=== PATIENT | male | born 1940 | race Caucasian/White ===

== ENCOUNTER 2016-03-13 04:22 | Emergency (ER) | payer BC, MEDICARE ==
[~2016-03-13 04:22] MED LIST: ALDA25TA PO; ALEV220T26 PO; ATEN50TA2 PO; CLON-412 PO; CLON0.5T PO; CLON1TAB PO; LIDO1OIN2 TOP; LIDO5DIS36 TD; LYRI100C10 PO; OXYC1TAB23 PO; OXYC1TAB56 PO; OXYC30TA72 PO; VICO5TAB16 PO; ZOFR20TA PO
[2016-03-13] MEDS ORDERED: PERCOCET 5MG/325MG TAB As Ordered ONE (08:12)
--- NOTE | 2016-03-13 09:06 | REP ---
Clinical: Right scrotal pain. Technique: Real time espinal scale and color Doppler evaluation using linear high frequency transducer. Comparison: 08/25/2013. Findings: In comparison with prior examination dated 2013, there has been no significant change. The bilateral testicles again appear heterogeneous but symmetric in echotexture with few scattered calcifications but no underlying testicular/epididymal mass, acute infectious/inflammatory process, or torsion. Bilateral chronic complex hydroceles are again identified (left greater than right) and essentially unchanged with two left scrotal calculi measuring approximately 5 mm each. Stable 3.5 mm right epididymal head cyst. No inguinal hernia. Impression: Chronic stable changes as described above including bilateral chronic hydroceles with small scrotal pearls. No obvious acute scrotal or testicular abnormality identified Signed by Crow Oakley MD 03/13/2016 08:58 A
--- NOTE | 2016-03-13 09:57 | EDDOCDS ---
Nurse's Notes [facility] Name: Nilo Palacio Age: 75 yrs Sex: Male : 1940 Arrival Date: 03/13/2016 Time: 04:22 Bed 12 Private MD: Diagnosis: Hydrocele, unspecified-with scrotal pearls Presentation: 03/13 04:30 Presenting complaint: Patient states: Pain in groin area, buttocks and right leg pain lf1 is currently 12/11. Pt reports that he was constipated on Saturday night and took Mag Citrate and strained "really hard" to have a "really lot of a bowel movement". Pt. reports that both testicles are now larger and the right one is very painful. Presenting complaint: Patient states: Testicle have been swollen since yesterday. Adult Sepsis Screening: The patient does not have new or worsening altered mentation. Adult Sepsis Screening: Patient's respiratory rate is less than 22. Suicide/Homicide risk assessment- the patient denies having any suicidal and/or homicidal ideations and does not present with any other emotional, behavioral or mental health complaints. 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 Transition of care: patient was not received from another setting of care. 04:30 Acuity: AISLINN Level 3 lf1 04:30 Method Of Arrival: Wheelchair lf1 04:42 Adult Sepsis Screening: Systolic blood pressure is greater than 100. Patient has a lf1 qSOFA score of 0- Negative Sepsis Screen. Triage Assessment: 04:42 General: Appears uncomfortable, Behavior is cooperative. Pain: Location: pelvis, lf1 buttocks, testicles, right leg Pain currently is 10 out of 10 on a pain scale. Alleviated by nothing. Neurological: Level of Consciousness is awake, alert. Cardiovascular: Chest pain is denied. Respiratory: Respiratory effort is even, unlabored. GI: Reports nausea. : Denies inability to void. Derm: Reports swelling to both testicles. Injury Description: No known injury. Historical: - Allergies: No known drug Allergies; - Home Meds: 1. clonidine HCl 0.1 mg Oral tab once daily (Last dose: 03/12/2016 07:30) 2. atenolol 50 mg Oral tab 1 tab once daily (Last dose: 03/12/2016 07:30) 3. Lyrica 100mg Oral BID PRN (Last dose: 03/13/2016 03:00) 4. oxycodone 30 mg Oral Tb12 every 12 hours (Last dose: 03/12/2016 21:00) 5. ondansetron HCl 4 mg Oral tab every 6 hours 6. spironolacton-hydrochlorothiaz 25-25 mg Oral tab 1 tab once daily 7. Clonazepam 0.5mg in am and 2 tabs at pm Oral 8. Sertraline 25 mg daily - PMHx: Anxiety; Bulging Discs; hernia repair; Hypertension; poor leg circulation; - PSHx: Eye Surgey; Bulging Disc; Hernia repair; - Social history: Smoking status: Patient states former smoker of tobacco. No barriers to communication noted, The patient speaks fluent [place], Speaks appropriately for age, Preferred Language: [place]. - Family history: Not pertinent. - : The pt / caregiver states he / she is not on anticoagulants. Home medication list is obtained from the patient. - Exposure Risk Screening:: None identified. Screenin:45 Screening information is obtained from the patient. Fall risk: At risk due to age, lf1 immobility. Assistance ADL's: requires no assistance with activities of daily living. Abuse/DV Screen: The patient / caregiver reports he/she is: not in a situation that causes fear, pain or injury. Nutritional screening: No deficits noted. home support is adequate. 04:47 Advance Directives: There is no active DNR order. lf1 Assessment: 05:25 General: Appears in no apparent distress, uncomfortable, well nourished, well groomed, kas2 Behavior is appropriate for age, cooperative. Pain: Location: groin Pain currently is 5 out of 10 on a pain scale. Neurological: Level of Consciousness is awake, alert, Oriented to person, place, time. Cardiovascular: Rhythm is regular. Respiratory: Airway is patent Respiratory effort is even, unlabored, Respiratory pattern is regular, symmetrical, Breath sounds are clear bilaterally. GI: Bowel sounds present X 4 quads. Abd is soft and non tender X 4 quads. : No deficits noted. Derm: Skin is intact, is healthy with good turgor, Skin is dry, Skin is pink, warm & dry. Skin temperature is warm. 05:57 General: Patient laying in bed with family at bedside. No apparent distress noted. kas2 Appears comfortable. Call jordan within reach. Will continue to monitor.. 08:10 Reassessment: patient states he missed his 0600 Percocet for his chronic pain - kcs provider informed and order received.. General: Appears comfortable, well developed, well nourished, well groomed, Behavior is cooperative, flat. Pain: Location: all over Pain currently is 7 out of 10 on a pain scale. Neurological: Level of Consciousness is awake, alert. Respiratory: Airway is patent Respiratory effort is even, unlabored, Respiratory pattern is regular, symmetrical. Derm: Skin is intact, is healthy with good turgor, Skin is dry, Skin is normal. 08:59 Reassessment: Patient states no change in pain - pain is in his lower back and kcs buttocks. Awaiting final rad report. at bedside.. 09:52 Reassessment: Patient dressed and ready for discharge. Still having pain (chronic) in kcs his low back and legs = 7/10.. General: Appears comfortable, well developed, well nourished, Behavior is cooperative, pleasant. Pain: Location: low back and legs Pain currently is 7 out of 10 on a pain scale. Neurological: Level of Consciousness is awake, alert. Respiratory: Airway is patent Respiratory effort is even, unlabored, Respiratory pattern is regular, symmetrical. Derm: Skin is intact, is healthy with good turgor, Skin is dry, Skin is normal. Vital Signs: 04:42 BP 143 / 95 LA Sitting (auto/reg); Pulse 84; Resp 18; Temp 98.1(TE); Pulse Ox 96% on lf1 R/A; Weight 90.72 kg (R); Height 6 ft. 0 in. (182.88 cm) (R); Pain 10/10; 08:10 BP 170 / 92; Pulse 66; Resp 20; Pulse Ox 94% on R/A; Pain 7/10; kcs 09:52 BP 149 / 91; Pulse 83; Resp 20; Temp 96.5(O); Pulse Ox 95% on R/A; Pain 7/10; kcs 04:42 Body Mass Index 27.12 (90.72 kg, 182.88 cm) [facility] Vitals: 04:42 Log In Time: March 13, 2016 at 04:24. [facility] ED Course: 04:23 Patient visited by Coffey, Alyssa, Reg. hs2 04:23 Patient moved to Waiting hs2 04:36 Triage Initiated lf1 04:54 Khushbu Frederick RN is Primary Nurse. lf1 04:54 Patient moved to 12 lf1 05:26 Patient visited by Khushbu Frederick RN. kas2 05:58 Patient visited by Khushbu Frederick RN. kas2 06:33 Patient visited by Khushbu Frederick RN. kas2 06:54 Tung Jansen DO is Attending Physician. mm11 07:05 Report received from Khushbu Frederick RN. kcs 07:11 Patient visited by Tung Jansen DO. mm11 07:15 Primary Nurse role handed off by Khushbu Frederick RN mcp 07:28 [facility] Payment Agreement was scanned into [employer] and attached to record. hs2 07:37 Patient moved to Ultrasound ssc 08:02 Patient moved to 12 ssc 08:10 Attending Physician role handed off by Tung Jansen DO sd1 08:10 Colleen Trejo MD is Attending Physician. sd1 08:11 UA Sent. kcs 08:11 Urine Culture Sent. kcs 08:11 GC & Chlamydia Amplification Sent. kcs 08:20 Patient visited by Ileana Porter RN. kcs 09:01 Patient visited by Ileana Porter RN. kcs 09:20 Scrotal, US Returned. EDMS 09:42 Mary Sloan MD is Referral Physician. sd1 09:42 Akbar Morse is Referral Physician. sd1 09:52 The patient / caregiver is instructed regarding the plan of care and ED course. kcs 09:52 No IV's were initiated during this patient's visit. No procedures done that require kcs assistance. Administered Medications: 08:15 Drug: oxyCODONE-acetaminophen 1 tabs [oxycodone-acetaminophen 5 mg-325 mg tablet (1 kcs tabs)] Route: PO; Output: 08:10 Urine: 425.00ml (Voided); Total: 425.00ml. kcs 09:52 Urine: 250.00ml (Voided); Total: 675.00ml. kcs Order Results: Lab Order: UA; SPEC'M 03/13/16 08:08 Test: APPEARANCE, URINE; Value: CLEAR; Range: CLEAR; Status: F Test: COLOR, URINE; Value: YELLOW; Range: YELLOW; Status: F Test: PH,URINE; Value: 6.0; Range: 5.0-9.0; Units: UNITS; Status: F Test: SPECIFIC GRAVITY URINE AUTO; Value: 1.005; Range: 1.002-1.035; Status: F Test: PROTEIN, URINE AUTO; Value: NEGATIVE; Range: NEGATIVE; Units: mg/dL; Status: F Test: GLUCOSE, URINE (UA) AUTO; Value: NEGATIVE; Range: NEGATIVE; Units: mg/dL; Status: F Test: KETONE, URINE AUTO; Value: NEGATIVE; Range: NEGATIVE; Units: mg/dL; Status: F Test: UROBILINOGEN, URINE AUTO; Value: 0.2; Range: 0.0-2.0; Units: mg/dL; Status: F Test: BILIRUBIN, URINE AUTO; Value: NEGATIVE; Range: NEGATIVE; Status: F Test: NITRITE, URINE AUTO; Value: NEGATIVE; Range: NEGATIVE; Status: F Test: LEUKOCYTE ESTERASE, URINE AUTO; Value: NEGATIVE; Range: NEGATIVE; Status: F Test: BLOOD, URINE BLOOD; Value: NEGATIVE; Range: NEGATIVE; Status: F Test: WBC, URINE AUTO; Value: 0; Range: 0-3; Units: /HPF; Status: F Test: RBC, URINE AUTO; Value: 1; Range: 0-3; Units: /HPF; Status: F Test: BACTERIA, URINE AUTO; Value: NEGATIVE; Range: NEGATIVE; Status: F Test: SQUAMOUS EPITHELIAL CELL UR AU; Value: 0; Range: 0-6; Units: /HPF; Status: F Test: HYALINE CAST, URINE AUTO; Value: 0; Range: 0-1; Units: /LPF; Status: F Test: AMORPHOUS SEDIMENT; Value: SMALL; Range: NEGATIVE; Abnormal: Above high normal; Status: F Radiology Order: Scrotal, US Test: Scrotal, US REASON FOR EXAMINATION: scrotal swelling; Clinical: Right scrotal pain.; ; Technique: Real time espinal scale and color Doppler evaluation using linear high; frequency transducer.; ; Comparison: 08/25/2013.; ; Findings:; In comparison with prior examination dated 2013, there has been no significant; change.; ; The bilateral testicles again appear heterogeneous but symmetric in echotexture; with few scattered calcifications but no underlying testicular/epididymal mass,; acute infectious/inflammatory process, or torsion. Bilateral chronic complex; hydroceles are again identified (left greater than right) and essentially; unchanged with two left scrotal calculi measuring approximately 5 mm each.; Stable 3.5 mm right epididymal head cyst. No inguinal hernia.; ; Impression:; Chronic stable changes as described above including bilateral chronic hydroceles; with small scrotal pearls.; No obvious acute scrotal or testicular abnormality identified; ; ; ; ; Signed by; Crow Oakley MD 03/13/2016 08:58 A; Outcome: 09:42 Discharge ordered by Provider. sd1 09:52 Discharge Assessment: Patient awake, alert and oriented x 3. No cognitive and/or kcs functional deficits noted. Patient verbalized understanding of disposition instructions. Patient awake and alert. patient administered narcotics - yes. Pt provided with safe discharge. The following High Risk Discharge criteria are identified: None. Discharged to home via wheelchair, with significant other. Condition: stable. Discharge instructions given to patient, significant other, Instructed on discharge instructions, follow up and referral plans. Demonstrated understanding of instructions, Pt was receptive of discharge instructions/ teaching. Ultrasound Study completed. Property sent home with patient. 09:56 Patient left the ED. kcs Signatures: Dispatcher [employer] EDMS Colleen Trejo MD MD sd1 Ileana Porter, RN RN Nadia Newman RN Nilson Watts mcp, Lisa,PILAR RN lf1 Tung Jansen, DO mm11 Alyssa Coffey, Reg Reg hs2 Khushbu Frederick,RN RN kas2 Corrections: (The following items were deleted from the chart) 04:47 04:45 Advance Directives: Currently, there is a health care proxy, Sandy Palacio (). lf1 There is an active DNR order and the pt has a copy here at this time. lf1 MTDD
--- NOTE | 2016-03-13 09:57 | EDDOCDS ---
Physician Documentation [facility] Name: Nilo Palacio Age: 75 yrs Sex: Male : 1940 Arrival Date: 03/13/2016 Time: 04:22 Bed 12 Private MD: Disposition: 03/13/16 09:42 Discharged to Home/Self Care. Impression: Hydrocele, unspecified - with scrotal pearls. - Condition is Stable. - Discharge Instructions: Scrotal Masses. - Medication Reconciliation, Local Pharmacy Hours form. - Follow up: Mary Sloan MD; When: Call to arrange an appointment. Follow up: Akbar Morse; When: Call to arrange an appointment. - Problem is an acute exacerbation. - Symptoms have improved. Historical: - Allergies: No known drug Allergies; - Home Meds: 1. clonidine HCl 0.1 mg Oral tab once daily (Last dose: 03/12/2016 07:30) 2. atenolol 50 mg Oral tab 1 tab once daily (Last dose: 03/12/2016 07:30) 3. Lyrica 100mg Oral BID PRN (Last dose: 03/13/2016 03:00) 4. oxycodone 30 mg Oral Tb12 every 12 hours (Last dose: 03/12/2016 21:00) 5. ondansetron HCl 4 mg Oral tab every 6 hours 6. spironolacton-hydrochlorothiaz 25-25 mg Oral tab 1 tab once daily 7. Clonazepam 0.5mg in am and 2 tabs at pm Oral 8. Sertraline 25 mg daily - PMHx: Anxiety; Bulging Discs; hernia repair; Hypertension; poor leg circulation; - PSHx: Eye Surgey; Bulging Disc; Hernia repair; - Social history: Smoking status: Patient states former smoker of tobacco. No barriers to communication noted, The patient speaks fluent [place], Speaks appropriately for age, Preferred Language: [place]. - Family history: Not pertinent. - : The pt / caregiver states he / she is not on anticoagulants. Home medication list is obtained from the patient. - Exposure Risk Screening:: None identified. Vital Signs: 03/13 04:42 BP 143 / 95 LA Sitting (auto/reg); Pulse 84; Resp 18; Temp 98.1(TE); Pulse Ox 96% on lf1 R/A; Weight 90.72 kg / 200 lbs (R); Height 6 ft. 0 in. (182.88 cm) (R); Pain 10/10; 08:10 BP 170 / 92; Pulse 66; Resp 20; Pulse Ox 94% on R/A; Pain 7/10; kcs 09:52 BP 149 / 91; Pulse 83; Resp 20; Temp 96.5(O); Pulse Ox 95% on R/A; Pain 7/10; kcs 04:42 Body Mass Index 27.12 (90.72 kg, 182.88 cm) lf1 MDM: 07:14 Scrotal, US Ordered. EDMS 07:14 UA Ordered. EDMS 07:14 Urine Culture Ordered. EDMS 07:14 GC & Chlamydia Amplification Ordered. EDMS 07:15 Financial registration complete. hs2 07:28 [facility] Payment Agreement was scanned into [employer] and attached to record. hs2 08:10 oxyCODONE-acetaminophen 5 mg-325 mg 1 tabs PO once ordered. sd1 08:11 DUPLEX SCAN LIMITED (DOPPLER) Ordered. EDMS 08:11 Pelvis, limited US Ordered. EDMS 08:35 UA Reviewed. sd1 Administered Medications: 08:15 Drug: oxyCODONE-acetaminophen 1 tabs [oxycodone-acetaminophen 5 mg-325 mg tablet (1 kcs tabs)] Route: PO; Signatures: Dispatcher [employer] Colleen Watkins MD MD sd1 Ileana Porter RN RN kcs Ford, Lisa, RN RN lf1 Alyssa Coffey, Reg Reg hs2 The chart was reviewed and I authenticate all verbal orders and agree with the evaluation and treatment provided.Attachments: 07:28 [facility] Payment Agreement hs2 MTDD
--- NOTE | 2016-03-15 10:57 | EDDOCDS ---
Nurse's Notes [facility] Name: Nilo Palacio Age: 75 yrs Sex: Male : 1940 Arrival Date: 03/13/2016 Time: 04:22 Bed 12 Private MD: Diagnosis: Hydrocele, unspecified-with scrotal pearls Presentation: 03/13 04:30 Presenting complaint: Patient states: Pain in groin area, buttocks and right leg pain lf1 is currently 12/11. Pt reports that he was constipated on Saturday night and took Mag Citrate and strained "really hard" to have a "really lot of a bowel movement". Pt. reports that both testicles are now larger and the right one is very painful. Presenting complaint: Patient states: Testicle have been swollen since yesterday. Adult Sepsis Screening: The patient does not have new or worsening altered mentation. Adult Sepsis Screening: Patient's respiratory rate is less than 22. Suicide/Homicide risk assessment- the patient denies having any suicidal and/or homicidal ideations and does not present with any other emotional, behavioral or mental health complaints. Status: Patient is not a inbound customer service representative or dependent. Transition of care: patient was not received from another setting of care. 04:30 Acuity: AISLINN Level 3 lf1 04:30 Method Of Arrival: Wheelchair lf1 04:42 Adult Sepsis Screening: Systolic blood pressure is greater than 100. Patient has a lf1 qSOFA score of 0- Negative Sepsis Screen. Triage Assessment: 04:42 General: Appears uncomfortable, Behavior is cooperative. Pain: Location: pelvis, lf1 buttocks, testicles, right leg Pain currently is 10 out of 10 on a pain scale. Alleviated by nothing. Neurological: Level of Consciousness is awake, alert. Cardiovascular: Chest pain is denied. Respiratory: Respiratory effort is even, unlabored. GI: Reports nausea. : Denies inability to void. Derm: Reports swelling to both testicles. Injury Description: No known injury. Historical: - Allergies: No known drug Allergies; - Home Meds: 1. clonidine HCl 0.1 mg Oral tab once daily (Last dose: 03/12/2016 07:30) 2. atenolol 50 mg Oral tab 1 tab once daily (Last dose: 03/12/2016 07:30) 3. Lyrica 100mg Oral BID PRN (Last dose: 03/13/2016 03:00) 4. oxycodone 30 mg Oral Tb12 every 12 hours (Last dose: 03/12/2016 21:00) 5. ondansetron HCl 4 mg Oral tab every 6 hours 6. spironolacton-hydrochlorothiaz 25-25 mg Oral tab 1 tab once daily 7. Clonazepam 0.5mg in am and 2 tabs at pm Oral 8. Sertraline 25 mg daily - PMHx: Anxiety; Bulging Discs; hernia repair; Hypertension; poor leg circulation; - PSHx: Eye Surgey; Bulging Disc; Hernia repair; - Social history: Smoking status: Patient states former smoker of tobacco. No barriers to communication noted, The patient speaks fluent Vincentian, Speaks appropriately for age, Preferred Language: Vincentian. - Family history: Not pertinent. - : The pt / caregiver states he / she is not on anticoagulants. Home medication list is obtained from the patient. - Exposure Risk Screening:: None identified. Screenin:45 Screening information is obtained from the patient. Fall risk: At risk due to age, lf1 immobility. Assistance ADL's: requires no assistance with activities of daily living. Abuse/DV Screen: The patient / caregiver reports he/she is: not in a situation that causes fear, pain or injury. Nutritional screening: No deficits noted. home support is adequate. 04:47 Advance Directives: There is no active DNR order. lf1 Assessment: 05:25 General: Appears in no apparent distress, uncomfortable, well nourished, well groomed, kas2 Behavior is appropriate for age, cooperative. Pain: Location: groin Pain currently is 5 out of 10 on a pain scale. Neurological: Level of Consciousness is awake, alert, Oriented to person, place, time. Cardiovascular: Rhythm is regular. Respiratory: Airway is patent Respiratory effort is even, unlabored, Respiratory pattern is regular, symmetrical, Breath sounds are clear bilaterally. GI: Bowel sounds present X 4 quads. Abd is soft and non tender X 4 quads. : No deficits noted. Derm: Skin is intact, is healthy with good turgor, Skin is dry, Skin is pink, warm & dry. Skin temperature is warm. 05:57 General: Patient laying in bed with family at bedside. No apparent distress noted. kas2 Appears comfortable. Call jordan within reach. Will continue to monitor.. 08:10 Reassessment: patient states he missed his 0600 Percocet for his chronic pain - kcs provider informed and order received.. General: Appears comfortable, well developed, well nourished, well groomed, Behavior is cooperative, flat. Pain: Location: all over Pain currently is 7 out of 10 on a pain scale. Neurological: Level of Consciousness is awake, alert. Respiratory: Airway is patent Respiratory effort is even, unlabored, Respiratory pattern is regular, symmetrical. Derm: Skin is intact, is healthy with good turgor, Skin is dry, Skin is normal. 08:59 Reassessment: Patient states no change in pain - pain is in his lower back and kcs buttocks. Awaiting final rad report. at bedside.. 09:52 Reassessment: Patient dressed and ready for discharge. Still having pain (chronic) in kcs his low back and legs = 7/10.. General: Appears comfortable, well developed, well nourished, Behavior is cooperative, pleasant. Pain: Location: low back and legs Pain currently is 7 out of 10 on a pain scale. Neurological: Level of Consciousness is awake, alert. Respiratory: Airway is patent Respiratory effort is even, unlabored, Respiratory pattern is regular, symmetrical. Derm: Skin is intact, is healthy with good turgor, Skin is dry, Skin is normal. Vital Signs: 04:42 BP 143 / 95 LA Sitting (auto/reg); Pulse 84; Resp 18; Temp 98.1(TE); Pulse Ox 96% on lf1 R/A; Weight 90.72 kg (R); Height 6 ft. 0 in. (182.88 cm) (R); Pain 10/10; 08:10 BP 170 / 92; Pulse 66; Resp 20; Pulse Ox 94% on R/A; Pain 7/10; kcs 09:52 BP 149 / 91; Pulse 83; Resp 20; Temp 96.5(O); Pulse Ox 95% on R/A; Pain 7/10; kcs 04:42 Body Mass Index 27.12 (90.72 kg, 182.88 cm) [facility] Vitals: 04:42 Log In Time: March 13, 2016 at 04:24. [facility] ED Course: 04:23 Patient visited by Coffey, Alyssa, Reg. hs2 04:23 Patient moved to Waiting hs2 04:36 Triage Initiated lf1 04:54 Khushbu Frederick RN is Primary Nurse. lf1 04:54 Patient moved to 12 lf1 05:26 Patient visited by Khushbu Frederick RN. kas2 05:58 Patient visited by Khushbu Frederick RN. kas2 06:33 Patient visited by Khushbu Frederick RN. kas2 06:54 Tung Jansen DO is Attending Physician. mm11 07:05 Report received from Khushbu Frederick RN. kcs 07:11 Patient visited by Tung Jansen DO. mm11 07:15 Primary Nurse role handed off by Khushbu Frederick RN mcp 07:28 [facility] Payment Agreement was scanned into [employer] and attached to record. hs2 07:37 Patient moved to Ultrasound ssc 08:02 Patient moved to 12 ssc 08:10 Attending Physician role handed off by Tung Jansen DO sd1 08:10 Colleen Trejo MD is Attending Physician. sd1 08:11 UA Sent. kcs 08:11 Urine Culture Sent. kcs 08:11 GC & Chlamydia Amplification Sent. kcs 08:20 Patient visited by Ileana Porter RN. kcs 09:01 Patient visited by Ileana Porter RN. kcs 09:20 Scrotal, US Returned. EDMS 09:42 Mary Sloan MD is Referral Physician. sd1 09:42 Akbar Morse is Referral Physician. sd1 09:52 The patient / caregiver is instructed regarding the plan of care and ED course. kcs 09:52 No IV's were initiated during this patient's visit. No procedures done that require kcs assistance. 14:41 T-Sheet-- Draft Copy was scanned into [employer] and attached to record. gb 14:41 Radiology Report was scanned into [employer] and attached to record. gb Administered Medications: 08:15 Drug: oxyCODONE-acetaminophen 1 tabs [oxycodone-acetaminophen 5 mg-325 mg tablet (1 kcs tabs)] Route: PO; Output: 08:10 Urine: 425.00ml (Voided); Total: 425.00ml. kcs 09:52 Urine: 250.00ml (Voided); Total: 675.00ml. kcs Order Results: Lab Order: UA; SPEC'M 03/13/16 08:08 Test: APPEARANCE, URINE; Value: CLEAR; Range: CLEAR; Status: F Test: COLOR, URINE; Value: YELLOW; Range: YELLOW; Status: F Test: PH,URINE; Value: 6.0; Range: 5.0-9.0; Units: UNITS; Status: F Test: SPECIFIC GRAVITY URINE AUTO; Value: 1.005; Range: 1.002-1.035; Status: F Test: PROTEIN, URINE AUTO; Value: NEGATIVE; Range: NEGATIVE; Units: mg/dL; Status: F Test: GLUCOSE, URINE (UA) AUTO; Value: NEGATIVE; Range: NEGATIVE; Units: mg/dL; Status: F Test: KETONE, URINE AUTO; Value: NEGATIVE; Range: NEGATIVE; Units: mg/dL; Status: F Test: UROBILINOGEN, URINE AUTO; Value: 0.2; Range: 0.0-2.0; Units: mg/dL; Status: F Test: BILIRUBIN, URINE AUTO; Value: NEGATIVE; Range: NEGATIVE; Status: F Test: NITRITE, URINE AUTO; Value: NEGATIVE; Range: NEGATIVE; Status: F Test: LEUKOCYTE ESTERASE, URINE AUTO; Value: NEGATIVE; Range: NEGATIVE; Status: F Test: BLOOD, URINE BLOOD; Value: NEGATIVE; Range: NEGATIVE; Status: F Test: WBC, URINE AUTO; Value: 0; Range: 0-3; Units: /HPF; Status: F Test: RBC, URINE AUTO; Value: 1; Range: 0-3; Units: /HPF; Status: F Test: BACTERIA, URINE AUTO; Value: NEGATIVE; Range: NEGATIVE; Status: F Test: SQUAMOUS EPITHELIAL CELL UR AU; Value: 0; Range: 0-6; Units: /HPF; Status: F Test: HYALINE CAST, URINE AUTO; Value: 0; Range: 0-1; Units: /LPF; Status: F Test: AMORPHOUS SEDIMENT; Value: SMALL; Range: NEGATIVE; Abnormal: Above high normal; Status: F Lab Order: Urine Culture; SPEC'M 03/13/16 08:08 Test: URINE CULTURE; Value: URINE CULTURE RESULT NO GROWTH; Status: F Lab Order: GC & Chlamydia Amplification; SPEC'M 03/13/16 08:08 Test: CHLAMYDIA DNA AMPLIFICATION; Value: NEGATIVE; Range: NEGATIVE; Status: F Test: GC DNA AMPLIFICATION; Value: NEGATIVE; Range: NEGATIVE; Status: F Radiology Order: Scrotal, US Test: Scrotal, US REASON FOR EXAMINATION: scrotal swelling; Clinical: Right scrotal pain.; ; Technique: Real time espinal scale and color Doppler evaluation using linear high; frequency transducer.; ; Comparison: 08/25/2013.; ; Findings:; In comparison with prior examination dated 2013, there has been no significant; change.; ; The bilateral testicles again appear heterogeneous but symmetric in echotexture; with few scattered calcifications but no underlying testicular/epididymal mass,; acute infectious/inflammatory process, or torsion. Bilateral chronic complex; hydroceles are again identified (left greater than right) and essentially; unchanged with two left scrotal calculi measuring approximately 5 mm each.; Stable 3.5 mm right epididymal head cyst. No inguinal hernia.; ; Impression:; Chronic stable changes as described above including bilateral chronic hydroceles; with small scrotal pearls.; No obvious acute scrotal or testicular abnormality identified; ; ; ; ; Signed by; Crow Oakley MD 03/13/2016 08:58 A; Outcome: 09:42 Discharge ordered by Provider. sd1 09:52 Discharge Assessment: Patient awake, alert and oriented x 3. No cognitive and/or kcs functional deficits noted. Patient verbalized understanding of disposition instructions. Patient awake and alert. patient administered narcotics - yes. Pt provided with safe discharge. The following High Risk Discharge criteria are identified: None. Discharged to home via wheelchair, with significant other. Condition: stable. Discharge instructions given to patient, significant other, Instructed on discharge instructions, follow up and referral plans. Demonstrated understanding of instructions, Pt was receptive of discharge instructions/ teaching. Ultrasound Study completed. Property sent home with patient. 09:56 Patient left the ED. kcs Signatures: Dispatcher [employer] EDMS Colleen Trejo MD MD sd1 Ileana Porter RN RN Nadia Newman RN RN mcp Castor, Steven ssc Barnhardt, Gloria, Reg Reg gb Carmelita HornRN RN lf1 Tung Jansen, DO mm11 Alyssa Coffey, Reg Reg hs2 Khushbu FrederickRN RN kas2 Corrections: (The following items were deleted from the chart) 04:47 04:45 Advance Directives: Currently, there is a health care proxy, Sandy Palacio (). lf1 There is an active DNR order and the pt has a copy here at this time. lf1 Chart Complete MTDD
--- NOTE | 2016-03-15 10:57 | EDDOCDS ---
Physician Documentation [facility] Name: Nilo Palacio Age: 75 yrs Sex: Male : 1940 Arrival Date: 03/13/2016 Time: 04:22 Bed 12 Private MD: Disposition: 03/13/16 09:42 Discharged to Home/Self Care. Impression: Hydrocele, unspecified - with scrotal pearls. - Condition is Stable. - Discharge Instructions: Scrotal Masses. - Medication Reconciliation, Local Pharmacy Hours form. - Follow up: Mary Sloan MD; When: Call to arrange an appointment. Follow up: Akbar Morse; When: Call to arrange an appointment. - Problem is an acute exacerbation. - Symptoms have improved. Historical: - Allergies: No known drug Allergies; - Home Meds: 1. clonidine HCl 0.1 mg Oral tab once daily (Last dose: 03/12/2016 07:30) 2. atenolol 50 mg Oral tab 1 tab once daily (Last dose: 03/12/2016 07:30) 3. Lyrica 100mg Oral BID PRN (Last dose: 03/13/2016 03:00) 4. oxycodone 30 mg Oral Tb12 every 12 hours (Last dose: 03/12/2016 21:00) 5. ondansetron HCl 4 mg Oral tab every 6 hours 6. spironolacton-hydrochlorothiaz 25-25 mg Oral tab 1 tab once daily 7. Clonazepam 0.5mg in am and 2 tabs at pm Oral 8. Sertraline 25 mg daily - PMHx: Anxiety; Bulging Discs; hernia repair; Hypertension; poor leg circulation; - PSHx: Eye Surgey; Bulging Disc; Hernia repair; - Social history: Smoking status: Patient states former smoker of tobacco. No barriers to communication noted, The patient speaks fluent Pakistani, Speaks appropriately for age, Preferred Language: Pakistani. - Family history: Not pertinent. - : The pt / caregiver states he / she is not on anticoagulants. Home medication list is obtained from the patient. - Exposure Risk Screening:: None identified. Vital Signs: 03/13 04:42 BP 143 / 95 LA Sitting (auto/reg); Pulse 84; Resp 18; Temp 98.1(TE); Pulse Ox 96% on lf1 R/A; Weight 90.72 kg / 200 lbs (R); Height 6 ft. 0 in. (182.88 cm) (R); Pain 10/10; 08:10 BP 170 / 92; Pulse 66; Resp 20; Pulse Ox 94% on R/A; Pain 7/10; kcs 09:52 BP 149 / 91; Pulse 83; Resp 20; Temp 96.5(O); Pulse Ox 95% on R/A; Pain 7/10; kcs 04:42 Body Mass Index 27.12 (90.72 kg, 182.88 cm) lf1 MDM: 07:14 Scrotal, US Ordered. EDMS 07:14 UA Ordered. EDMS 07:14 Urine Culture Ordered. EDMS 07:14 GC & Chlamydia Amplification Ordered. EDMS 07:15 Financial registration complete. hs2 07:28 [facility] Payment Agreement was scanned into [employer] and attached to record. hs2 08:10 oxyCODONE-acetaminophen 5 mg-325 mg 1 tabs PO once ordered. sd1 08:11 DUPLEX SCAN LIMITED (DOPPLER) Ordered. EDMS 08:11 Pelvis, limited US Ordered. EDMS 08:35 UA Reviewed. sd1 14:41 T-Sheet-- Draft Copy was scanned into [employer] and attached to record. gb 14:41 Radiology Report was scanned into [employer] and attached to record. gb Administered Medications: 08:15 Drug: oxyCODONE-acetaminophen 1 tabs [oxycodone-acetaminophen 5 mg-325 mg tablet (1 kcs tabs)] Route: PO; Signatures: Dispatcher [employer] EDColleen Bertrand MD MD sd1 Ileana Porter RN RN kcs Gaviota Lux, Reg Reg gb Carmelita Horn RN RN lf1 Alyssa Coffey, Reg Reg hs2 The chart was reviewed and I authenticate all verbal orders and agree with the evaluation and treatment provided.Attachments: 07:28 [facility] Payment Agreement hs2 14:41 T-Sheet-- Draft Copy gb Chart Complete MTDD
--- NOTE | 2016-03-15 10:57 | EDDOCDS ---
Physician Documentation [facility] Name: Nilo Palacio Age: 75 yrs Sex: Male : 1940 Arrival Date: 03/13/2016 Time: 04:22 Bed 12 Private MD: Disposition: 03/13/16 09:42 Discharged to Home/Self Care. Impression: Hydrocele, unspecified - with scrotal pearls. - Condition is Stable. - Discharge Instructions: Scrotal Masses. - Medication Reconciliation, Local Pharmacy Hours form. - Follow up: Mary Sloan MD; When: Call to arrange an appointment. Follow up: Akbar Morse; When: Call to arrange an appointment. - Problem is an acute exacerbation. - Symptoms have improved. Historical: - Allergies: No known drug Allergies; - Home Meds: 1. clonidine HCl 0.1 mg Oral tab once daily (Last dose: 03/12/2016 07:30) 2. atenolol 50 mg Oral tab 1 tab once daily (Last dose: 03/12/2016 07:30) 3. Lyrica 100mg Oral BID PRN (Last dose: 03/13/2016 03:00) 4. oxycodone 30 mg Oral Tb12 every 12 hours (Last dose: 03/12/2016 21:00) 5. ondansetron HCl 4 mg Oral tab every 6 hours 6. spironolacton-hydrochlorothiaz 25-25 mg Oral tab 1 tab once daily 7. Clonazepam 0.5mg in am and 2 tabs at pm Oral 8. Sertraline 25 mg daily - PMHx: Anxiety; Bulging Discs; hernia repair; Hypertension; poor leg circulation; - PSHx: Eye Surgey; Bulging Disc; Hernia repair; - Social history: Smoking status: Patient states former smoker of tobacco. No barriers to communication noted, The patient speaks fluent [place], Speaks appropriately for age, Preferred Language: [place]ian. - Family history: Not pertinent. - : The pt / caregiver states he / she is not on anticoagulants. Home medication list is obtained from the patient. - Exposure Risk Screening:: None identified. Vital Signs: 03/13 04:42 BP 143 / 95 LA Sitting (auto/reg); Pulse 84; Resp 18; Temp 98.1(TE); Pulse Ox 96% on lf1 R/A; Weight 90.72 kg / 200 lbs (R); Height 6 ft. 0 in. (182.88 cm) (R); Pain 10/10; 08:10 BP 170 / 92; Pulse 66; Resp 20; Pulse Ox 94% on R/A; Pain 7/10; kcs 09:52 BP 149 / 91; Pulse 83; Resp 20; Temp 96.5(O); Pulse Ox 95% on R/A; Pain 7/10; kcs 04:42 Body Mass Index 27.12 (90.72 kg, 182.88 cm) lf1 MDM: 07:14 Scrotal, US Ordered. EDMS 07:14 UA Ordered. EDMS 07:14 Urine Culture Ordered. EDMS 07:14 GC & Chlamydia Amplification Ordered. EDMS 07:15 Financial registration complete. hs2 07:28 [facility] Payment Agreement was scanned into [employer] and attached to record. hs2 08:10 oxyCODONE-acetaminophen 5 mg-325 mg 1 tabs PO once ordered. sd1 08:11 DUPLEX SCAN LIMITED (DOPPLER) Ordered. EDMS 08:11 Pelvis, limited US Ordered. EDMS 08:35 UA Reviewed. sd1 14:41 T-Sheet-- Draft Copy was scanned into [employer] and attached to record. gb 14:41 Radiology Report was scanned into [employer] and attached to record. gb Administered Medications: 08:15 Drug: oxyCODONE-acetaminophen 1 tabs [oxycodone-acetaminophen 5 mg-325 mg tablet (1 kcs tabs)] Route: PO; Signatures: Dispatcher [employer] EDColleen Bertrand MD MD sd1 Ileana Porter RN RN kcs Gaviota Lux, Reg Reg gb Carmelita Horn RN RN lf1 Alyssa Coffey, Reg Reg hs2 The chart was reviewed and I authenticate all verbal orders and agree with the evaluation and treatment provided.Attachments: 07:28 [facility] Payment Agreement hs2 14:41 T-Sheet-- Draft Copy gb Chart Complete MTDD
== END 2016-03-13 09:56 | disposition home or self-care (01) ==
LOC: M ED 04:22
DX: N43.3 Hydrocele, unspecified (principal); F41.9 Anxiety disorder, unspecified; M51.9 Unspecified thoracic, thoracolumbar and lumbosacral intervertebral disc disorder; I10 Essential (primary) hypertension; Z87.891 Personal history of nicotine dependence; Z79.899 Other long term (current) drug therapy

== ENCOUNTER 2016-03-30 13:03 | Emergency (ER) | payer MEDICARE, OTHER ==
--- NOTE | 2016-03-30 14:27 | EDDOCDS ---
Nurse's Notes [facility] Name: Nilo Palacio Age: 75 yrs Sex: Male : 1940 Arrival Date: 03/30/2016 Time: 13:03 Bed TR7 Private MD: Shruti Diagnosis: Candidiasis of other urogenital sites Presentation: 03/30 13:09 Presenting complaint: Patient states: Has groin pain to right side. Been ongoing since jo3 hernia repair in 2013. Was seen here two weeks ago for swollen testicles and diagnosed Hydrocele and small cysts. Followed up with urology and cleared by them. Adult Sepsis Screening: The patient does not have new or worsening altered mentation. Patient's respiratory rate is less than 22. Systolic blood pressure is greater than 100. Patient has a qSOFA score of 0- Negative Sepsis Screen. Suicide/Homicide risk assessment- the patient denies having any suicidal and/or homicidal ideations and does not present with any other emotional, behavioral or mental health complaints. 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 Transition of care: patient was not received from another setting of care. 13:09 Acuity: AISLINN Level 3 jo3 13:09 Method Of Arrival: Walkin/Carried/Asstd jo3 Triage Assessment: 13:16 General: Appears in no apparent distress. Pain: Pain currently is 10 out of 10 on a jo3 pain scale. Neurological: Level of Consciousness is awake, alert. Respiratory: Airway is patent Respiratory effort is even, unlabored. Derm: Skin is pink, warm & dry. Historical: - Allergies: no known allergies; - Home Meds: 1. Abilify 2 mg Oral tab tid prn has not been taking 2. atenolol 50 mg Oral tab 1 tab once daily 3. atenolol 50 mg Oral tab 4. Clonazepam 0.5mg in am and 2 tabs at pm Oral 5. clonidine HCl 0.1 mg Oral tab once daily 6. duloxetine 30 mg Oral cpDR 1 cap once daily 7. Lyrica 100mg Oral BID PRN 8. ondansetron HCl 4 mg Oral tab every 6 hours 9. oxycodone 30 mg Oral Tb12 every 12 hours 10. spironolacton-hydrochlorothiaz 25-25 mg Oral tab 1 tab once daily 11. Percocet 5-325 mg Oral tab every 12 hours 12. Sertraline 25 mg daily - PMHx: Anxiety; Bulging Discs; hernia repair; Hypertension; poor leg circulation; - PSHx: Eye Surgey; Bulging Disc; Hernia repair; - Social history: Smoking status: Patient states former smoker of tobacco. No barriers to communication noted, The patient speaks fluent Belarusian, Speaks appropriately for age. - Family history: Not pertinent. - : The pt / caregiver states he / she is not on anticoagulants. Home medication list is obtained from the patient. - Exposure Risk Screening:: None identified. Screenin:24 Screening information is obtained from the patient. Fall risk: No risks identified. ttb Assistance ADL's: requires no assistance with activities of daily living. Abuse/DV Screen: The patient / caregiver reports he/she is: not in a situation that causes fear, pain or injury. Nutritional screening: No deficits noted. Advance Directives: Currently, there is no health care proxy. home support is adequate. Assessment: 14:24 General: Appears in no apparent distress, well nourished, well groomed, Behavior is ttb appropriate for age, cooperative, pleasant, quiet. Pain: Location: groin. Neurological: Level of Consciousness is awake, alert. Cardiovascular: Chest pain is denied. Respiratory: No deficits noted. Derm: Skin is normal, Reports rash. Musculoskeletal: Range of motion intact in all extremities. pt uses cane. Vital Signs: 13:05 BP 137 / 83; Pulse 71; Resp 18 S; Temp 95.8(T); Pulse Ox 90% on R/A; Weight 83.46 kg gr2 (R); Height 6 ft. 0 in. (182.88 cm) (R); Pain 8/10; 14:22 BP 155 / 84; Pulse 52; Resp 18; Temp 97.0(T); Pulse Ox 93% ; lr2 13:05 Body Mass Index 24.95 (83.46 kg, 182.88 cm) gr2 Vitals: 13:05 Log In Time: March 30, 2016 at 13:05. gr2 ED Course: 13:04 Patient visited by Anthony Saab. gr2 13:04 Patient moved to Waiting gr2 13:05 Shruti is Private Physician. gr2 13:07 Patient visited by Anthony Saab. gr2 13:07 Patient moved to Pre RCE gr2 13:13 Triage Initiated jo3 13:16 Patient visited by Emily Mercedes,PILAR. jo3 13:19 Patient moved to Triage 3 ttb 13:57 [facility] cc10 13:57 Colleen Trejo MD is Attending Physician. cc10 14:07 Patient visited by Frantz Loza PA-C. cc10 14:07 Patient visited by Frantz Loza PA-C. cc10 14:17 Shruti is Referral Physician. cc10 14:24 Patient moved to TR5 srm 14:24 Patient moved to TR7 ttb 14:24 The patient / caregiver is instructed regarding the plan of care and ED course. ttb Accompanied by Significant Other, Patient has correct armband on for positive identification. 14:24 No IV's were initiated during this patient's visit. No procedures done that require ttb assistance. Order Results: There are currently no results for this order. Outcome: 14:17 Discharge ordered by Provider. cc10 14:24 Discharge Assessment: Patient awake, alert and oriented x 3. No cognitive and/or ttb functional deficits noted. Patient verbalized understanding of disposition instructions. Patient awake and alert. patient administered narcotics - no. The following High Risk Discharge criteria are identified: None. Discharged to home ambulatory, with significant other. Condition: good Condition: stable Condition: improved. Discharge instructions given to patient, significant other, Instructed on discharge instructions, follow up and referral plans. medication usage, Demonstrated understanding of instructions, medications, Pt was receptive of discharge instructions/ teaching. Prescriptions given X 1. No special radiology studies were completed. Property :Personal belongings accompany Pt. 14:26 Patient left the ED. ttb Signatures: Emily Darden RN RN [facility] Emily Mercedes RN RN jo3 Conner, Teresa, RN RN ttb Anthony Saab gr2 Frantz Loza PA-C PA-C cc Eh Aracely lr2 MTDD
--- NOTE | 2016-03-30 14:27 | EDDOCDS ---
Physician Documentation [facility] Name: Nilo Palacio Age: 75 yrs Sex: Male : 1940 Arrival Date: 03/30/2016 Time: 13:03 Bed TR7 Private MD: Shruti Disposition: 03/30/16 14:17 Discharged to Home/Self Care. Impression: Candidiasis of other urogenital sites. - Condition is Stable. - Discharge Instructions: Pelvic Pain, Male, Intertrigo, [id number]. - Prescriptions for Nystatin- Triamcinolone 100,000-0.1 unit/gram-% Topical Ointment - apply 1 application by TOPICAL route 2 times per day apply to groin area; 1 tube. - Medication Reconciliation form. - Follow up: Emergency Department; When: As needed. Follow up: Shruti; When: Call to arrange an appointment; Reason: Wound/Symptom Recheck, Recheck today's complaints, Worsening of conditions, Continuance of care. - Problem is an ongoing problem. - Symptoms are unchanged. Historical: - Allergies: no known allergies; - Home Meds: 1. Abilify 2 mg Oral tab tid prn has not been taking 2. atenolol 50 mg Oral tab 1 tab once daily 3. atenolol 50 mg Oral tab 4. Clonazepam 0.5mg in am and 2 tabs at pm Oral 5. clonidine HCl 0.1 mg Oral tab once daily 6. duloxetine 30 mg Oral cpDR 1 cap once daily 7. Lyrica 100mg Oral BID PRN 8. ondansetron HCl 4 mg Oral tab every 6 hours 9. oxycodone 30 mg Oral Tb12 every 12 hours 10. spironolacton-hydrochlorothiaz 25-25 mg Oral tab 1 tab once daily 11. Percocet 5-325 mg Oral tab every 12 hours 12. Sertraline 25 mg daily - PMHx: Anxiety; Bulging Discs; hernia repair; Hypertension; poor leg circulation; - PSHx: Eye Surgey; Bulging Disc; Hernia repair; - Social history: Smoking status: Patient states former smoker of tobacco. No barriers to communication noted, The patient speaks fluent South Sudanese, Speaks appropriately for age. - Family history: Not pertinent. - : The pt / caregiver states he / she is not on anticoagulants. Home medication list is obtained from the patient. - Exposure Risk Screening:: None identified. Vital Signs: 03/30 13:05 BP 137 / 83; Pulse 71; Resp 18 S; Temp 95.8(T); Pulse Ox 90% on R/A; Weight 83.46 kg / gr2 184 lbs (R); Height 6 ft. 0 in. (182.88 cm) (R); Pain 8/10; 14:22 BP 155 / 84; Pulse 52; Resp 18; Temp 97.0(T); Pulse Ox 93% ; lr2 13:05 Body Mass Index 24.95 (83.46 kg, 182.88 cm) gr2 Signatures: Emily MercedesRN RN Daria Mills RN RN ttb [place], Colin, PAAylaC PAAylaC cc10 JEANNIE
--- NOTE | 2016-04-01 15:28 | EDDOCDS ---
Physician Documentation [facility] Name: Nilo Palacio Age: 75 yrs Sex: Male : 1940 Arrival Date: 03/30/2016 Time: 13:03 Bed TR7 Private MD: Shruti Disposition: 03/30/16 14:17 Discharged to Home/Self Care. Impression: Candidiasis of other urogenital sites. - Condition is Stable. - Discharge Instructions: Pelvic Pain, Male, Intertrigo, [id number]. - Prescriptions for Nystatin- Triamcinolone 100,000-0.1 unit/gram-% Topical Ointment - apply 1 application by TOPICAL route 2 times per day apply to groin area; 1 tube. - Medication Reconciliation form. - Follow up: Emergency Department; When: As needed. Follow up: Shruti; When: Call to arrange an appointment; Reason: Wound/Symptom Recheck, Recheck today's complaints, Worsening of conditions, Continuance of care. - Problem is an ongoing problem. - Symptoms are unchanged. Historical: - Allergies: no known allergies; - Home Meds: 1. Abilify 2 mg Oral tab tid prn has not been taking 2. atenolol 50 mg Oral tab 1 tab once daily 3. atenolol 50 mg Oral tab 4. Clonazepam 0.5mg in am and 2 tabs at pm Oral 5. clonidine HCl 0.1 mg Oral tab once daily 6. duloxetine 30 mg Oral cpDR 1 cap once daily 7. Lyrica 100mg Oral BID PRN 8. ondansetron HCl 4 mg Oral tab every 6 hours 9. oxycodone 30 mg Oral Tb12 every 12 hours 10. spironolacton-hydrochlorothiaz 25-25 mg Oral tab 1 tab once daily 11. Percocet 5-325 mg Oral tab every 12 hours 12. Sertraline 25 mg daily - PMHx: Anxiety; Bulging Discs; hernia repair; Hypertension; poor leg circulation; - PSHx: Eye Surgey; Bulging Disc; Hernia repair; - Social history: Smoking status: Patient states former smoker of tobacco. No barriers to communication noted, The patient speaks fluent Icelandic, Speaks appropriately for age. - Family history: Not pertinent. - : The pt / caregiver states he / she is not on anticoagulants. Home medication list is obtained from the patient. - Exposure Risk Screening:: None identified. Vital Signs: 03/30 13:05 BP 137 / 83; Pulse 71; Resp 18 S; Temp 95.8(T); Pulse Ox 90% on R/A; Weight 83.46 kg / gr2 184 lbs (R); Height 6 ft. 0 in. (182.88 cm) (R); Pain 8/10; 14:22 BP 155 / 84; Pulse 52; Resp 18; Temp 97.0(T); Pulse Ox 93% ; lr2 13:05 Body Mass Index 24.95 (83.46 kg, 182.88 cm) gr2 MDM: 14:56 Financial registration complete. mm15 14:56 [facility] Payment Agreement was scanned into [employer] and attached to record. mm15 03/31 08:09 T-Sheet-- Draft Copy was scanned into [employer] and attached to record. [facility] Signatures: Emily Mercedes RN RN jo3 Daria De La Rosa RN RN ttb McGrath, Marlynn mm15 Frantz Loza PA-C PA-C cc10 Colleen Khalil [facility] The chart was reviewed and I authenticate all verbal orders and agree with the evaluation and treatment provided.Attachments: 03/30 14:56 [facility] Payment Agreement mm15 03/31 08:09 T-Sheet-- Draft Copy [facility] Chart Complete MTDD
--- NOTE | 2016-04-01 15:28 | EDDOCDS ---
Physician Documentation [facility] Name: Nilo Palacio Age: 75 yrs Sex: Male : 1940 Arrival Date: 03/30/2016 Time: 13:03 Bed TR7 Private MD: Shruti Disposition: 03/30/16 14:17 Discharged to Home/Self Care. Impression: Candidiasis of other urogenital sites. - Condition is Stable. - Discharge Instructions: Pelvic Pain, Male, Intertrigo, [id number]. - Prescriptions for Nystatin- Triamcinolone 100,000-0.1 unit/gram-% Topical Ointment - apply 1 application by TOPICAL route 2 times per day apply to groin area; 1 tube. - Medication Reconciliation form. - Follow up: Emergency Department; When: As needed. Follow up: Shruti; When: Call to arrange an appointment; Reason: Wound/Symptom Recheck, Recheck today's complaints, Worsening of conditions, Continuance of care. - Problem is an ongoing problem. - Symptoms are unchanged. Historical: - Allergies: no known allergies; - Home Meds: 1. Abilify 2 mg Oral tab tid prn has not been taking 2. atenolol 50 mg Oral tab 1 tab once daily 3. atenolol 50 mg Oral tab 4. Clonazepam 0.5mg in am and 2 tabs at pm Oral 5. clonidine HCl 0.1 mg Oral tab once daily 6. duloxetine 30 mg Oral cpDR 1 cap once daily 7. Lyrica 100mg Oral BID PRN 8. ondansetron HCl 4 mg Oral tab every 6 hours 9. oxycodone 30 mg Oral Tb12 every 12 hours 10. spironolacton-hydrochlorothiaz 25-25 mg Oral tab 1 tab once daily 11. Percocet 5-325 mg Oral tab every 12 hours 12. Sertraline 25 mg daily - PMHx: Anxiety; Bulging Discs; hernia repair; Hypertension; poor leg circulation; - PSHx: Eye Surgey; Bulging Disc; Hernia repair; - Social history: Smoking status: Patient states former smoker of tobacco. No barriers to communication noted, The patient speaks fluent Polish, Speaks appropriately for age. - Family history: Not pertinent. - : The pt / caregiver states he / she is not on anticoagulants. Home medication list is obtained from the patient. - Exposure Risk Screening:: None identified. Vital Signs: 03/30 13:05 BP 137 / 83; Pulse 71; Resp 18 S; Temp 95.8(T); Pulse Ox 90% on R/A; Weight 83.46 kg / gr2 184 lbs (R); Height 6 ft. 0 in. (182.88 cm) (R); Pain 8/10; 14:22 BP 155 / 84; Pulse 52; Resp 18; Temp 97.0(T); Pulse Ox 93% ; lr2 13:05 Body Mass Index 24.95 (83.46 kg, 182.88 cm) gr2 MDM: 14:56 Financial registration complete. mm15 14:56 [facility] Payment Agreement was scanned into [employer] and attached to record. mm15 03/31 08:09 T-Sheet-- Draft Copy was scanned into [employer] and attached to record. [facility] Signatures: Emily Mercedes RN RN jo3 Daria De La Rosa RN RN ttb McGrath, Marlynn mm15 Frantz Loza PA-C PA-C cc10 Colleen Khalil [facility] The chart was reviewed and I authenticate all verbal orders and agree with the evaluation and treatment provided.Attachments: 03/30 14:56 [facility] Payment Agreement mm15 03/31 08:09 T-Sheet-- Draft Copy [facility] Chart Complete MTDD
--- NOTE | 2016-04-01 15:28 | EDDOCDS ---
Nurse's Notes [facility] Name: Nilo Palacio Age: 75 yrs Sex: Male : 1940 Arrival Date: 03/30/2016 Time: 13:03 Bed TR7 Private MD: Shruti Diagnosis: Candidiasis of other urogenital sites Presentation: 03/30 13:09 Presenting complaint: Patient states: Has groin pain to right side. Been ongoing since jo3 hernia repair in 2013. Was seen here two weeks ago for swollen testicles and diagnosed Hydrocele and small cysts. Followed up with urology and cleared by them. Adult Sepsis Screening: The patient does not have new or worsening altered mentation. Patient's respiratory rate is less than 22. Systolic blood pressure is greater than 100. Patient has a qSOFA score of 0- Negative Sepsis Screen. Suicide/Homicide risk assessment- the patient denies having any suicidal and/or homicidal ideations and does not present with any other emotional, behavioral or mental health complaints. 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 Transition of care: patient was not received from another setting of care. 13:09 Acuity: AISLINN Level 3 jo3 13:09 Method Of Arrival: Walkin/Carried/Asstd jo3 Triage Assessment: 13:16 General: Appears in no apparent distress. Pain: Pain currently is 10 out of 10 on a jo3 pain scale. Neurological: Level of Consciousness is awake, alert. Respiratory: Airway is patent Respiratory effort is even, unlabored. Derm: Skin is pink, warm & dry. Historical: - Allergies: no known allergies; - Home Meds: 1. Abilify 2 mg Oral tab tid prn has not been taking 2. atenolol 50 mg Oral tab 1 tab once daily 3. atenolol 50 mg Oral tab 4. Clonazepam 0.5mg in am and 2 tabs at pm Oral 5. clonidine HCl 0.1 mg Oral tab once daily 6. duloxetine 30 mg Oral cpDR 1 cap once daily 7. Lyrica 100mg Oral BID PRN 8. ondansetron HCl 4 mg Oral tab every 6 hours 9. oxycodone 30 mg Oral Tb12 every 12 hours 10. spironolacton-hydrochlorothiaz 25-25 mg Oral tab 1 tab once daily 11. Percocet 5-325 mg Oral tab every 12 hours 12. Sertraline 25 mg daily - PMHx: Anxiety; Bulging Discs; hernia repair; Hypertension; poor leg circulation; - PSHx: Eye Surgey; Bulging Disc; Hernia repair; - Social history: Smoking status: Patient states former smoker of tobacco. No barriers to communication noted, The patient speaks fluent Kyrgyz, Speaks appropriately for age. - Family history: Not pertinent. - : The pt / caregiver states he / she is not on anticoagulants. Home medication list is obtained from the patient. - Exposure Risk Screening:: None identified. Screenin:24 Screening information is obtained from the patient. Fall risk: No risks identified. ttb Assistance ADL's: requires no assistance with activities of daily living. Abuse/DV Screen: The patient / caregiver reports he/she is: not in a situation that causes fear, pain or injury. Nutritional screening: No deficits noted. Advance Directives: Currently, there is no health care proxy. home support is adequate. Assessment: 14:24 General: Appears in no apparent distress, well nourished, well groomed, Behavior is ttb appropriate for age, cooperative, pleasant, quiet. Pain: Location: groin. Neurological: Level of Consciousness is awake, alert. Cardiovascular: Chest pain is denied. Respiratory: No deficits noted. Derm: Skin is normal, Reports rash. Musculoskeletal: Range of motion intact in all extremities. pt uses cane. Vital Signs: 13:05 BP 137 / 83; Pulse 71; Resp 18 S; Temp 95.8(T); Pulse Ox 90% on R/A; Weight 83.46 kg gr2 (R); Height 6 ft. 0 in. (182.88 cm) (R); Pain 8/10; 14:22 BP 155 / 84; Pulse 52; Resp 18; Temp 97.0(T); Pulse Ox 93% ; lr2 13:05 Body Mass Index 24.95 (83.46 kg, 182.88 cm) gr2 Vitals: 13:05 Log In Time: March 30, 2016 at 13:05. gr2 ED Course: 13:04 Patient visited by Anthony Saab. gr2 13:04 Patient moved to Waiting gr2 13:05 Shruti is Private Physician. gr2 13:07 Patient visited by Anthony Saab. gr2 13:07 Patient moved to Pre RCE gr2 13:13 Triage Initiated jo3 13:16 Patient visited by Emily Mercedes RN. jo3 13:19 Patient moved to Triage 3 ttb 13:57 Frantz Loza PA-C is PHCP. cc10 13:57 Colleen Trejo MD is Attending Physician. cc10 14:07 Patient visited by Frantz Loza PA-C. cc10 14:07 Patient visited by Frantz Loza PA-C. cc10 14:17 Shruti is Referral Physician. cc10 14:24 Patient moved to TR5 srm 14:24 Patient moved to TR7 ttb 14:24 The patient / caregiver is instructed regarding the plan of care and ED course. ttb Accompanied by Significant Other, Patient has correct armband on for positive identification. 14:24 No IV's were initiated during this patient's visit. No procedures done that require ttb assistance. 14:56 [facility] Payment Agreement was scanned into [employer] and attached to record. mm15 03/31 08:09 T-Sheet-- Draft Copy was scanned into [employer] and attached to record. [facility] Order Results: There are currently no results for this order. Outcome: 03/30 14:17 Discharge ordered by Provider. cc10 14:24 Discharge Assessment: Patient awake, alert and oriented x 3. No cognitive and/or ttb functional deficits noted. Patient verbalized understanding of disposition instructions. Patient awake and alert. patient administered narcotics - no. The following High Risk Discharge criteria are identified: None. Discharged to home ambulatory, with significant other. Condition: good Condition: stable Condition: improved. Discharge instructions given to patient, significant other, Instructed on discharge instructions, follow up and referral plans. medication usage, Demonstrated understanding of instructions, medications, Pt was receptive of discharge instructions/ teaching. Prescriptions given X 1. No special radiology studies were completed. Property :Personal belongings accompany Pt. 14:26 Patient left the ED. ttb Signatures: Emily Darden RN RN [facility] Emily Mercedes RN RN jo3 Conner, Teresa, RN RN ttb Anthony Saab gr2 Seda Andrews mm15 Frantz Loza PA-C PA-C cc10 Colleen Khalil, Aracely lr2 Chart Complete MTDD
== END 2016-03-30 14:26 | disposition home or self-care (01) ==
LOC: M ED 13:03
DX: B37.49 Other urogenital candidiasis (principal); F41.9 Anxiety disorder, unspecified; I10 Essential (primary) hypertension; I99.8 Other disorder of circulatory system; M51.9 Unspecified thoracic, thoracolumbar and lumbosacral intervertebral disc disorder; Z87.891 Personal history of nicotine dependence; Z79.899 Other long term (current) drug therapy

== ENCOUNTER 2016-04-04 07:37 | Emergency (ER) | payer MEDICARE ==
--- NOTE | 2016-04-04 09:33 | REP ---
Abdominal series: Three views. History: Abdominal pain. Findings: Upright chest radiograph is compared with the February 28, 2016 prior study. The lungs are better inflated and clear. Pleural angles are sharp. Heart size is normal. The aorta is calcific and tortuous. There is no evidence of infiltrate or free subdiaphragmatic air. Supine and erect views of the abdomen demonstrate that the patient is status post laminectomy at L4 and L5. Right inguinal hernia repair coils are seen. There are a few loops of air-filled borderline caliber small bowel displaying air-fluid levels in the left mid abdomen. Air and stool is seen in a nondistended colon proximally and distally. Flank stripes are intact. Psoas margins are obscured. No mass or organomegaly is seen. Impression: Central abdominal small bowel air-fluid levels, ileus versus partial small bowel obstruction. Status post right inguinal hernia repair and L4 and L5 laminectomy. No active disease in the chest. Signed by Damián Blair MD 04/04/2016 10:30 A
[2016-04-04 09:56] LABS: BASO % 0.6 % (0.0-1.0); EOS % 0.8 % (0.0-3.0); LARGE UNSTAINED CELL # 0.1 K/mm3 (0.0-0.4); LYMPH # 1.2 K/mm3 (1.5-4.5); LYMPH % 18.2 % (24.0-44.0); MEAN CORPUSCULAR HEMOGLOBIN 29.6 pg (27.0-33.0); MEAN CORPUSCULAR HGB CONC 34.3 g/dl (32.0-36.5); MEAN CORPUSCULAR VOLUME 86.3 fl (80.0-96.0); MONO # 0.5 K/mm3 (0.0-0.8); MONO % 8.1 % (0.0-5.0); NEUTROPHILS # 4.6 K/mm3 (1.8-7.7); NEUTROPHILS % 70.3 % (36.0-66.0); PLATELET COUNT, AUTOMATED 214 k/mm3 (150-450); WHITE BLOOD COUNT 6.6 K/mm3 (4.0-10.0)
[2016-04-04 10:20] LABS: ANION GAP 8 MEQ/L (8-16); BLOOD UREA NITROGEN 14 MG/DL (7-18); CALCIUM LEVEL 9.9 MG/DL (8.8-10.2); CARBON DIOXIDE LEVEL 31 MEQ/L (21-32); CHLORIDE LEVEL 98 MEQ/L (98-107); CREATININE FOR GFR 0.98 MG/DL (0.70-1.30); GLOMERULAR FILTRATION RATE > 60.0 (>42); GLUCOSE, FASTING 127 MG/DL (83-110); POTASSIUM SERUM 3.6 MEQ/L (3.5-5.1); SODIUM LEVEL 137 MEQ/L (136-145)
--- NOTE | 2016-04-04 11:37 | REP ---
CT study of the abdomen and pelvis without IV or oral contrast: Renal stone protocol. History: Right lower quadrant pain. Comparison CT study is from May 08, 2013. CT findings: Preliminary digital spar cap beveler radiograph demonstrates an unremarkable bowel gas pattern. There are bilateral inguinal surgical clips. 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 This is a little more prominent on the right than on the 2014 prior study. The liver and the spleen are homogeneous in texture and normal in size. No focal liver lesion is seen. No adrenal mass is observed on either side. The gallbladder shows no abnormality. No pancreatic abnormality is seen. The kidneys are morphologically intact. No hydronephrosis is seen. There is some vascular calcification in the renal artery on the left which is unchanged. The abdominal aorta is tortuous. There is a distal abdominal aortic aneurysm measuring 3.3 cm in greatest diameter. Previous measurement 2.9 cm. A normal appendix is seen in the right lower quadrant posterior to the cecum although it is short. No inflammatory changes are seen. Small and large intestinal bowel loops are unremarkable. No abdominal wall defect is seen. Right inguinal herniorrhaphy sutures are seen. There are clips in the left inguinal soft tissues. No bony destructive lesion is seen. 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 Urinary bladder, seminal vesicles and prostate are unremarkable. Impression: 1. 3.3 cm distal abdominal aortic aneurysm, previous measurement 2.9 cm in May 2013. 2. Normal appendix seen. 3. Status post right inguinal hernia repair. Clips in the left groin soft tissues. 4. 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 No acute intra-abdominal abnormality seen. Signed by Damián Blair MD 04/04/2016 02:24 P
[2016-04-04] MEDS ORDERED: RIVAROXABAN 20 MG TAB (XARELTO) As Ordered ONE (12:29)
--- NOTE | 2016-04-04 12:53 | EDDOCDS ---
Nurse's Notes [facility] Name: Nilo Palacio Age: 75 yrs Sex: Male : 1940 Arrival Date: 04/04/2016 Time: 07:37 Bed 8 Private MD: Diagnosis: Paroxysmal atrial pgzqawatsryw-NOBXA-NACo score 4;Abdominal aortic aneurysm, without rupture-3.3cm;Lower abdominal pain, unspecified-with nondiagnostic labs and CT. Non hernias or mesh abnormalities Presentation: 04/04 07:42 Presenting complaint: Patient states: RLQ pain radiating to right flank ongoing for 4-5 ck1 months. Patient states he has been seen here for same many times before. "I want a CAT scan today, I need one". Adult Sepsis Screening: The patient does not have new or worsening altered mentation. Patient's respiratory rate is less than 22. Systolic blood pressure is greater than 100. Patient has a qSOFA score of 0- Negative Sepsis Screen. Suicide/Homicide risk assessment- the patient denies having any suicidal and/or homicidal ideations and does not present with any other emotional, behavioral or mental health complaints. Status: Patient is not a community service worker or dependent. Transition of care: patient was not received from another setting of care. 07:42 Acuity: AISLINN Level 3 ck1 07:42 Method Of Arrival: Wheelchair ck1 Triage Assessment: 07:51 General: Appears uncomfortable, Behavior is appropriate for age, cooperative. Pain: ck1 Location: right lower quadrant Pain currently is 8 out of 10 on a pain scale. Pain radiates to right flank. Neurological: Level of Consciousness is awake, alert, obeys commands, Oriented to person, place, time. Respiratory: Respiratory effort is unlabored, Respiratory pattern is regular, symmetrical. GI: Abdomen is non- distended Reports nausea. : Denies inability to void. Derm: Skin is pink, warm & dry. Musculoskeletal: Circulation, motion, and sensation intact Range of motion intact in all extremities. Historical: - Allergies: Bees; - Home Meds: 1. clonidine HCl 0.1 mg Oral tab once daily (Last dose: 04/04/2016) 2. atenolol 50 mg Oral tab 1 tab once daily (Last dose: 04/04/2016) 3. Lyrica 100mg Oral twice a day (Last dose: 04/04/2016 01:00) 4. Aleve Unknown Oral Unknown PRN (Last dose: 04/04/2016 03:00) 5. Percocet 5-325 mg Oral tab every 12 hours (Last dose: 04/04/2016 05:00) 6. oxycodone 20 mg oral tab twice a day (Last dose: 04/03/2016 21:00) 7. ondansetron HCl 4 mg Oral tab 3 times per day PRN (Last dose: Unknown) 8. spironolacton-hydrochlorothiaz 25-25 mg Oral tab 1 tab once daily (Last dose: 04/04/2016 07:15) 9. Clonazepam 0.5mg in am and 2 tabs at pm Oral (Last dose: Unknown) 10. Sertraline 25 mg nightly (Last dose: 04/03/2016) 11. fungal cream twice a day - PMHx: Hypertension; Anxiety; Bulging Discs; poor leg circulation; - PSHx: Eye Surgey; Bulging Disc; Hernia repair; - The history from nurses notes was reviewed: and I agree with what is documented. - Social history: Smoking status: Patient states former smoker of tobacco. No barriers to communication noted, The patient speaks fluent Malagasy, Speaks appropriately for age. - : The pt / caregiver states he / she is not on anticoagulants. Home medication list is obtained from the patient. - Hospitalizations: : The patient was recently seen at [facility], and discharged 1 month(s) ago, for metabolic encephalopathy due to opioid abuse. - Exposure Risk Screening:: None identified. - Immunization history:: All immunizations up-to-date. - Family history: Not pertinent. - Social history:: the patient is a non-smoker, the patient does not drink alcohol. Screenin:57 Screening information is obtained from family members. Fall risk: No risks identified. bcj Assistance ADL's: requires no assistance with activities of daily living. Abuse/DV Screen: The patient / caregiver reports he/she is: not in a situation that causes fear, pain or injury. Nutritional screening: No deficits noted. home support is adequate. 12:03 Advance Directives: There is no active DNR order. the [facility] Assessment: 08:57 General: Appears in no apparent distress, comfortable, Behavior is cooperative. Pain: bcj Location: right lower quadrant Pain currently is 8 out of 10 on a pain scale. GI: Abdomen is non- distended Bowel sounds present X 4 quads. Abd is soft Abd is tender to palpation in right lower quadrant. 09:53 General: Appears in no apparent distress, comfortable, Behavior is cooperative. Pain: bcj Location: right lower quadrant Pain currently is 8 out of 10 on a pain scale. Derm: Skin is pink, warm & dry. 10:51 General: Appears in no apparent distress, comfortable, Behavior is cooperative. Pain: bcj Location: right lower quadrant Pain currently is 8 out of 10 on a pain scale. GI: Abdomen is flat, non- distended Bowel sounds present X 4 quads. Derm: Skin is pink, warm & dry. 12:47 General: Appears in no apparent distress, comfortable, Behavior is appropriate for age, cjh cooperative, Provider in room to discuss discharge and follow up with patient, reviewed instructions with this telegraphic typewriter installer, no further needs voiced. Pain: Location: right lower quadrant. Respiratory: Airway is patent Respiratory effort is even, unlabored, Respiratory pattern is regular, symmetrical. GI: Bowel sounds present X 4 quads. Abd is soft X 4 quads Abd is tender to palpation in right lower quadrant. Derm: Skin is pink, warm & dry. Vital Signs: 07:44 BP 184 / 89; Pulse 75; Resp 18; Temp 97.0(O); Pulse Ox 96% on R/A; Weight 83.46 kg (R); ck1 Height 6 ft. 0 in. (182.88 cm) (R); Pain 8/10; 08:13 BP 109 / 64 (auto/); pc 08:20 Pulse 110 MON; Pulse Ox 93% ; pc 08:43 BP 99 / 66 (auto/); bcj 08:44 Pulse 118 MON; Pulse Ox 92% ; bcj 10:30 BP 103 / 70 (auto/); bcj 10:30 Pulse 82 MON; Pulse Ox 93% ; bcj 10:43 BP 102 / 69 (auto/); bcj 10:43 Pulse 80 MON; Pulse Ox 90% ; bcj 12:02 BP 145 / 65 (auto/); cjh 12:03 Pulse 56 MON; Pulse Ox 100% ; cjh 12:13 BP 136 / 65 (auto/); cjh 12:15 Pulse 64 MON; Pulse Ox 100% ; cjh 12:20 BP 126 / 75; Pulse 78; Resp 18; Temp 98.9; Pulse Ox 93% ; Pain 7/10; cmb 07:44 Body Mass Index 24.95 (83.46 kg, 182.88 cm) ck1 Vitals: 07:44 Log In Time: April 04, 2016 at 07:44. ck1 ED Course: 07:38 Patient visited by Valerie Gutierrez. az 07:38 Patient moved to Waiting az 07:44 Triage Initiated ck1 07:52 Patient moved to 8 ck1 08:00 Pt greeted and oriented to ED. Patient advised of names of staff involved in care, cmb location of call jordan, wait times and NPO status. Accompanied by Family Member, Patient has correct armband on for positive identification. Bed in low position. Call light in reach. Side rails up X 1. campus monitor on. Pulse ox on. NIBP on. 08:35 Otf Dial MD is Attending Physician. pc 08:44 No apparent distress. Resting quietly. Awaiting CT Scan. bcj 08:44 IV is intact. bcj 08:45 Patient visited by Otf Dial MD. pc 08:57 No apparent distress. Waiting to go to radiology. bcj 08:57 The patient / caregiver is instructed regarding the plan of care and ED course. bcj 08:59 Patient visited by Gaudencio De Dios RN. bcj 09:20 EKG done. (by ED staff). Reviewed by Otf Dial MD. nb2 09:21 Patient visited by Micki Edwards. nb2 09:51 Abdomen, Flat\\E\\Upright,PA Chest Returned. EDMS 09:53 No apparent distress. Resting quietly. Waiting to go to radiology. bcj 09:53 Inserted saline lock: 20 gauge in right antecubital area. Labs drawn. (by ED staff). bcj Sent per order to lab. 09:56 Patient visited by Gaudencio De Dios RN. bcj 10:05 [facility] Payment Agreement was scanned into [employer] and attached to record. mm15 10:41 Abdomen, Flat\\E\\Upright,PA Chest Returned. EDMS 10:54 Patient visited by Gaudencio De Dios RN. bcj 11:26 Patient visited by Lisset Kern. cmb 11:26 Verbal reassurance given. Repositioned patient. cmb 12:03 Mary Sloan MD is Referral Physician. pc 12:03 Discontinued lock intact, bleeding controlled, pressure dressing applied, No cjh redness/swelling at site. No procedures done that require assistance. 12:21 Patient visited by Lisset Kern. cmb 12:26 CT ABD & PELVIS: No Contrast Returned. EDMS Order Results: Lab Order: Basic Metabolic Profile; SPEC'M 04/04/16 09:47 Test: GLUCOSE, FASTING; Value: 127; Range: 83-110; Abnormal: Above high normal; Units: MG/DL; Status: F Test: BLOOD UREA NITROGEN; Value: 14; Range: 7-18; Units: MG/DL; Status: F Test: CREATININE FOR GFR; Value: 0.98; Range: 0.70-1.30; Units: MG/DL; Status: F Test: GLOMERULAR FILTRATION RATE; Value: > 60.0; Range: >42; Status: F Test: SODIUM LEVEL; Value: 137; Range: 136-145; Units: MEQ/L; Status: F Test: POTASSIUM SERUM; Value: 3.6; Range: 3.5-5.1; Units: MEQ/L; Status: F Test: CHLORIDE LEVEL; Value: 98; Range: 98-107; Units: MEQ/L; Status: F Test: CARBON DIOXIDE LEVEL; Value: 31; Range: 21-32; Units: MEQ/L; Status: F Test: ANION GAP; Value: 8; Range: 8-16; Units: MEQ/L; Status: F Test: CALCIUM LEVEL; Value: 9.9; Range: 8.8-10.2; Units: MG/DL; Status: F Test Note: ; Units are mL/min/1.73 m2 Chronic Kidney Disease Staging per NKF: Stage I & II GFR >=60 Normal to Mildly Decreased Stage III GFR 30-59 Moderately Decreased Stage IV GFR 15-29 Severely Decreased Stage V GFR <15 Very Little GFR Left ESRD GFR <15 on POURER OFF Lab Order: CBC with Diff; SPEC'M 04/04/16 09:47 Test: WHITE BLOOD COUNT; Value: 6.6; Range: 4.0-10.0; Units: K/mm3; Status: F Test: RED BLOOD COUNT; Value: 5.76; Range: 4.30-6.10; Units: M/mm3; Status: F Test: HEMOGLOBIN; Value: 17.0; Range: 14.0-18.0; Units: g/dl; Status: F Test: HEMATOCRIT; Value: 49.7; Range: 42.0-52.0; Units: %; Status: F Test: MEAN CORPUSCULAR VOLUME; Value: 86.3; Range: 80.0-96.0; Units: fl; Status: F Test: MEAN CORPUSCULAR HEMOGLOBIN; Value: 29.6; Range: 27.0-33.0; Units: pg; Status: F Test: MEAN CORPUSCULAR HGB CONC; Value: 34.3; Range: 32.0-36.5; Units: g/dl; Status: F Test: RED CELL DISTRIBUTION WIDTH; Value: 12.0; Range: 11.5-14.5; Units: %; Status: F Test: PLATELET COUNT, AUTOMATED; Value: 214; Range: 150-450; Units: k/mm3; Status: F Test: NEUTROPHILS %; Value: 70.3; Range: 36.0-66.0; Abnormal: Above high normal; Units: %; Status: F Test: LYMPH %; Value: 18.2; Range: 24.0-44.0; Abnormal: Below low normal; Units: %; Status: F Test: MONO %; Value: 8.1; Range: 0.0-5.0; Abnormal: Above high normal; Units: %; Status: F Test: EOS %; Value: 0.8; Range: 0.0-3.0; Units: %; Status: F Test: BASO %; Value: 0.6; Range: 0.0-1.0; Units: %; Status: F Test: LARGE UNSTAINED CELL %; Value: 2.0; Range: 0.0-4.0; Units: %; Status: F Test: NEUTROPHILS #; Value: 4.6; Range: 1.8-7.7; Units: K/mm3; Status: F Test: LYMPH #; Value: 1.2; Range: 1.5-4.5; Abnormal: Below low normal; Units: K/mm3; Status: F Test: MONO #; Value: 0.5; Range: 0.0-0.8; Units: K/mm3; Status: F Test: EOS #; Value: 0.0; Range: 0.0-0.50; Units: K/mm3; Status: F Test: BASO #; Value: 0.0; Range: 0.0-0.2; Units: K/mm3; Status: F Test: LARGE UNSTAINED CELL #; Value: 0.1; Range: 0.0-0.4; Units: K/mm3; Status: F Lab Order: Cardiac Injury Profile; 04/04/16 09:47 Test: CPK CREATINE PHOSPHOKINASE; Value: 48; Range: 39-308; Units: U/L; Status: F Test: CK-MB VALUE MASS; Value: 1.0; Range: 0.0-3.6; Units: NG/ML; Status: F Test: MB/CK RELATIVE INDEX; Value: 2.08; Range: < OR =4; Status: F Test Note: ; DIAGNOSIS CRITERIA MMB ng/ml Relative Index (RI) NON-AMI < or = 5 N/A MARTIN ZONE > 5 < or = 4 AMI > 5 > 4 Lab Order: Troponin; 04/04/16 09:47 Test: TROPONIN I; Value: 0.02; Range: < 0.10; Units: NG/ML; Status: F Test Note: ; Troponin I Reference Interval for [place] LOCI: 99th Percentile= 0.00-0.045 ng/ml Risk Stratification: <= 0.10 ng/ml Decreased Risk for Adverse Clinical Events. 0.10-1.50 ng/ml Increased Risk for Adverse Clinical Events. Evaluation of additional criterion and/or repeat testing in 2-6 hours is suggested to rule out myocardial damage. >= 1.50 ng/ml Indicative of Myocardial Injury. Lab Order: TSH with Free T4; 04/04/16 09:47 Test: THYROID STIMULATING HORMONE; Value: 0.850; Range: 0.358-3.740; Units: uIU/ML; Status: F Test: FREE T4; Value: 1.40; Range: 0.76-1.46; Units: NG/DL; Status: F Radiology Order: Abdomen, Flat\\E\\Upright,PA Chest Test: Abdomen, Flat\\E\\Upright,PA Chest REASON FOR EXAMINATION: Abdomen Pain; Abdominal series: Three views.; ; History: Abdominal pain.; ; Findings: Upright chest radiograph is compared with the February 28, 2016 prior; study. The lungs are better inflated and clear. Pleural angles are sharp.; Heart size is normal. The aorta is calcific and tortuous. There is no evidence; of infiltrate or free subdiaphragmatic air.; ; Supine and erect views of the abdomen demonstrate that the patient is status post; laminectomy at L4 and L5. Right inguinal hernia repair coils are seen. There; are a few loops of air-filled borderline caliber small bowel displaying air-fluid; levels in the left mid abdomen. Air and stool is seen in a nondistended colon; proximally and distally. Flank stripes are intact. Psoas margins are obscured.; No mass or organomegaly is seen.; ; Impression:; ; Central abdominal small bowel air-fluid levels, ileus versus partial small bowel; obstruction. Status post right inguinal hernia repair and L4 and L5 laminectomy.; No active disease in the chest.; ; ; Signed by; Damián Blair MD 04/04/2016 10:30 A; Radiology Order: CT ABD & PELVIS: No Contrast Test: CT ABD & PELVIS: No Contrast REASON FOR EXAMINATION: RLQ pain; CT study of the abdomen and pelvis without IV or oral contrast: Renal stone; protocol.; ; History: Right lower quadrant pain.; ; Comparison CT study is from May 08, 2013.; ; CT findings: Preliminary digital coke handling supervisor radiograph demonstrates an unremarkable; bowel gas pattern. 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 This is a little more prominent on the right than on the 2013 prior study.; The liver and the spleen are homogeneous in texture and normal in size. No focal; liver lesion is seen. No adrenal mass is observed on either side. The; gallbladder shows no abnormality. No pancreatic abnormality is seen. The; kidneys are morphologically intact. No hydronephrosis is seen. There is some; vascular calcification in the renal artery on the left which is unchanged. The; abdominal aorta is tortuous. There is a distal abdominal aortic aneurysm; measuring 3.3 cm in greatest diameter. Previous measurement 2.9 cm. A normal; appendix is seen in the right lower quadrant posterior to the cecum although it; is short. No inflammatory changes are seen. Small and large intestinal bowel; loops are unremarkable. No abdominal wall defect is seen. Right inguinal; herniorrhaphy sutures are seen. There are clips in the left inguinal soft; tissues. No bony destructive lesion is seen. 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 Urinary bladder, seminal; vesicles and prostate are unremarkable.; ; Impression:; 1. 3.3 cm distal abdominal aortic aneurysm, previous measurement 2.9 cm in 2013.; 2. Normal appendix seen.; 3. Status post right inguinal hernia repair. Clips in the left groin soft; tissues.; 4. 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 No acute intra-abdominal abnormality seen.; ; ; ; ; Unreviewed; Outcome: 12:03 Discharge ordered by Provider. 12:03 Discharge Assessment: Patient awake, alert and oriented x 3. No cognitive and/or [facility] functional deficits noted. Patient verbalized understanding of disposition instructions. patient administered narcotics - no. The following High Risk Discharge criteria are identified: None. Discharged to home ambulatory. Condition: good Condition: stable Condition: improved. Discharge instructions given to patient, family, Instructed on discharge instructions, follow up and referral plans. medication usage, Demonstrated understanding of instructions, medications, Pt was receptive of discharge instructions/ teaching. Prescriptions given X 1. CT Study completed. Property :Personal belongings accompany Pt. 12:52 Patient left the ED. the [facility] Signatures: Dispatcher [employer] EDMS Otf Dial MD MD pc Johnson, Bruce RN RN Sadie Montelongo RN RN ck1 Kacie Lancaster RN RN [facility] Lisset Kern Marlynn [id number] Valerie Gutierrez Nicole nb2 MTDD
--- NOTE | 2016-04-04 12:53 | EDDOCDS ---
Physician Documentation [facility] Name: Nilo Palacio Age: 75 yrs Sex: Male : 1940 Arrival Date: 04/04/2016 Time: 07:37 Bed 8 Private MD: Disposition: 04/04 11:55 Critical Care: Critical care not applicable. pc Disposition: 04/04/16 12:03 Discharged to Home/Self Care. Impression: Paroxysmal atrial fibrillation - CHADS-VASc score 4, Abdominal aortic aneurysm, without rupture - 3.3cm, Lower abdominal pain, unspecified - with nondiagnostic labs and CT. Non hernias or mesh abnormalities . - Condition is Stable. - Discharge Instructions: Abdominal Aortic Aneurysm, Atrial Fibrillation, Abdominal Pain, Adult, [id number]. - Prescriptions for Xarelto 20 mg Oral Tablet - take 1 tablet by ORAL route once daily; 30 tablet. - Medication Reconciliation, Local Pharmacy Hours form. - Follow up: Mary Sloan MD; When: As previously arranged; Reason: Recheck today's complaints, Continuance of care. - Problem is new. - Symptoms are resolved. HPI: 08:48 This 75 yrs old Male presents to ER via Wheelchair with complaints of Groin pc Pain. 08:48 The history is obtained from the patient, the patient's spouse. He has been having pc right groin pain, RLQ pain for many months, worse in the past few weeks. He has been seen here twice for the same, with bilateral hydroceles but hernias seen on US. He was seen at Urology and no further treatment required or advised. He has chronic constipation issues due to opioid dependence but says he uses Miralax daily with relief. He denies any urinary symptoms, Respiratory symptoms. He denies any nausea or vomiting, appetite change. He and his admit to overwhelming anxiety and he is literally begging for a CT scan because he "just knows his hernia mesh is infected or broken". He had an US last week, with the same concerns, and no hernias were seen. He has no skin color changes in the RLQ and he does not feel and masses or lumps. Historical: - Allergies: Bees; - Home Meds: 1. clonidine HCl 0.1 mg Oral tab once daily (Last dose: 04/04/2016) 2. atenolol 50 mg Oral tab 1 tab once daily (Last dose: 04/04/2016) 3. Lyrica 100mg Oral twice a day (Last dose: 04/04/2016 01:00) 4. Aleve Unknown Oral Unknown PRN (Last dose: 04/04/2016 03:00) 5. Percocet 5-325 mg Oral tab every 12 hours (Last dose: 04/04/2016 05:00) 6. oxycodone 20 mg oral tab twice a day (Last dose: 04/03/2016 21:00) 7. ondansetron HCl 4 mg Oral tab 3 times per day PRN (Last dose: Unknown) 8. spironolacton-hydrochlorothiaz 25-25 mg Oral tab 1 tab once daily (Last dose: 04/04/2016 07:15) 9. Clonazepam 0.5mg in am and 2 tabs at pm Oral (Last dose: Unknown) 10. Sertraline 25 mg nightly (Last dose: 04/03/2016) 11. fungal cream twice a day - PMHx: Hypertension; Anxiety; Bulging Discs; poor leg circulation; - PSHx: Eye Surgey; Bulging Disc; Hernia repair; - The history from nurses notes was reviewed: and I agree with what is documented. - Social history: Smoking status: Patient states former smoker of tobacco. No barriers to communication noted, The patient speaks fluent French, Speaks appropriately for age. - : The pt / caregiver states he / she is not on anticoagulants. Home medication list is obtained from the patient. - Hospitalizations: : The patient was recently seen at [facility], and discharged 1 month(s) ago, for metabolic encephalopathy due to opioid abuse. - Exposure Risk Screening:: None identified. - Immunization history:: All immunizations up-to-date. - Family history: Not pertinent. - Social history:: the patient is a non-smoker, the patient does not drink alcohol. ROS: 08:48 MS/Skin/Lymph: chronic low back pain, chronic right pain. pc 08:48 All systems are negative except as listed. Exam: 08:48 General Appearance: no acute distress, alert, anxious. pc 08:48 Respiratory: no respiratory distress, normal breath sounds. 08:48 CVS: normal S1 and S2, no murmurs, the patient is tachycardic, at 115 bpm, irregularly irregular 08:48 Abdomen: soft, no organomegaly, normal bowel sounds, no masses appreciated, no hernias palpated with/without gravity or Valsalva mild tenderness in the right inguinal ligament, no skin color changes, no masses. 08:48 Skin: skin color is normal, warm, dry. Vital Signs: 07:44 BP 184 / 89; Pulse 75; Resp 18; Temp 97.0(O); Pulse Ox 96% on R/A; Weight 83.46 kg / ck1 184 lbs (R); Height 6 ft. 0 in. (182.88 cm) (R); Pain 8/10; 08:13 BP 109 / 64 (auto/); pc 08:20 Pulse 110 MON; Pulse Ox 93% ; pc 08:43 BP 99 / 66 (auto/); bcj 08:44 Pulse 118 MON; Pulse Ox 92% ; bcj 10:30 BP 103 / 70 (auto/); bcj 10:30 Pulse 82 MON; Pulse Ox 93% ; bcj 10:43 BP 102 / 69 (auto/); bcj 10:43 Pulse 80 MON; Pulse Ox 90% ; bcj 12:02 BP 145 / 65 (auto/); cjh 12:03 Pulse 56 MON; Pulse Ox 100% ; cjh 12:13 BP 136 / 65 (auto/); cjh 12:15 Pulse 64 MON; Pulse Ox 100% ; cjh 12:20 BP 126 / 75; Pulse 78; Resp 18; Temp 98.9; Pulse Ox 93% ; Pain 7/10; cmb 07:44 Body Mass Index 24.95 (83.46 kg, 182.88 cm) ck1 MDM: 08:46 Abdomen, Flat\\E\\Upright,PA Chest Ordered. EDMS 08:46 ECG WITH READING ER PHYS+CARDIAG ordered. EDMS 08:55 Differential Diagnosis: right inguinal ligament pain; anxiety; constipation; AFib ?new. pc Plan: imaging, EKG, labs. 09:29 Director Of Rehabilitative Services/Pulse Ox/q 30 min VS ordered. pc 09:29 IV Saline Lock ordered. pc 09:29 Rhythm Strip to chart ordered. pc 09:29 Basic Metabolic Profile Ordered. EDMS 09:29 CBC with Diff Ordered. EDMS 09:29 Cardiac Injury Profile Ordered. EDMS 09:29 Troponin Ordered. EDMS 09:29 TSH with Free T4 Ordered. EDMS 09:31 Test interpretation: EKG. pc 10:03 Financial registration complete. mm15 10:05 [facility] Payment Agreement was scanned into [employer] and attached to record. mm15 10:26 Basic Metabolic Profile Reviewed. pc 10:26 CBC with Diff Reviewed. pc 10:26 Troponin Reviewed. pc 10:26 Abdomen, Flat\\E\\Upright,PA Chest Reviewed. pc 10:28 Basic Metabolic Profile Reviewed. pc 10:28 Cardiac Injury Profile Reviewed. pc 10:28 Troponin Reviewed. pc 10:28 TSH with Free T4 Reviewed. pc 10:44 CT ABD & PELVIS: No Contrast Ordered. EDMS 11:25 ED course: [id number] score of 4. pc 11:39 Abdomen, Flat\\E\\Upright,PA Chest Reviewed. pc 11:55 Data reviewed: old medical records, vital signs, nurses notes, EKG(s), lab test pc results, all radiology studies and available results. Test interpretation: LAB - all labs as ordered have been reviewed, interpreted and considered in the overall management of the clinical presentation; X-RAY - interpreted by Radiologist and personally reviewed, 3-view abdomen series; ?ileus, else nad, interpreted by Radiologist and personally reviewed, Abdomen/Pelvis CT; AAA 3.3cm, up from 2.9 in May 2013, else nad. The patient has been re-examined and re-evaluated. The patient's symptoms have markedly improved after treatment. Physician consultation: Dr. Mary Sloan MD regarding patient's condition, and advises the medications/treatment as provided. and agrees with the treatment provided and advises the discharge plans as outlined. Disposition: The historical points, examination findings, and any diagnostic results supporting the provided diagnosis, were discussed with the patient or legal guardian. The need for outpatient follow up with the provider listed on their discharge instructions was discussed. They were encouraged to return to [facility], or the nearest ED, if symptoms worsen/persist, or for any other questions/concerns. 12:00 Rivaroxaban 20 mg PO once ordered. pc EC:31 Rate is 110 beats/min. Rhythm is irregularly irregular, A fib. QRS [place] is Normal. QRS pc interval is normal. QT interval is normal. No Q waves. T waves are Normal. No ST changes noted. Clinical impression: Atrial Fibrillation with RVR. Signatures: Dispatcher [facility] Otf Gorman MD MD Sadie SanonRN RN ck1 Kacie LancasterRN RN [facility] Seda Andrews mm15 The chart was reviewed and I authenticate all verbal orders and agree with the evaluation and treatment provided.Corrections: (The following items were deleted from the chart) 09:30 08:48 CVS: regular pulse rate, regular rhythm, normal S1 and S2, no murmurs, [facility] : 08:55 Differential Diagnosis: right inguinal ligament pain; anxiety; constipation [facility] 08:55 Plan: imaging [facility] Attachments: 10:05 [facility] Payment Agreement mm15 MTDD
--- NOTE | 2016-04-06 08:52 | ECGEPIP ---
Stationary ECG Study [facility] - ED Test Date: 2016-04-04 Pat Name: CLAUDIA GARDNER Department: Room: - Gender: M Hospital Receiving Clerk: marcelo : 1940 Requested By: Otf Resendiz Order Number: [id number] Reading MD: Colleen Trejo Measurements Intervals [place] Rate: 139 P: ND: 0 QRS: -14 QRSD: 106 T: 41 QT: 287 QTc: 437 Interpretive Statements ATRIAL FIBRILLATION WITH RAPID VENTRICULAR RESPONSE ABNORMAL RHYTHM ECG NSTTW ABNORMALITY PRIOR SINUS 81 02/28/16 Electronically Signed On 04-06-2016 8:52:01 EST by Colleen Trejo
--- NOTE | 2016-04-06 13:53 | EDDOCDS ---
Physician Documentation [facility] Name: Nilo Palacio Age: 75 yrs Sex: Male : 1940 Arrival Date: 04/04/2016 Time: 07:37 Bed 8 Private MD: Disposition: 04/04 11:55 Critical Care: Critical care not applicable. pc Disposition: 04/04/16 12:03 Discharged to Home/Self Care. Impression: Paroxysmal atrial fibrillation - CHADS-VASc score 4, Abdominal aortic aneurysm, without rupture - 3.3cm, Lower abdominal pain, unspecified - with nondiagnostic labs and CT. Non hernias or mesh abnormalities . - Condition is Stable. - Discharge Instructions: Abdominal Aortic Aneurysm, Atrial Fibrillation, Abdominal Pain, Adult, [id number]. - Prescriptions for Xarelto 20 mg Oral Tablet - take 1 tablet by ORAL route once daily; 30 tablet. - Medication Reconciliation, Local Pharmacy Hours form. - Follow up: Mary Sloan MD; When: As previously arranged; Reason: Recheck today's complaints, Continuance of care. - Problem is new. - Symptoms are resolved. HPI: 08:48 This 75 yrs old Male presents to ER via Wheelchair with complaints of Groin pc Pain. 08:48 The history is obtained from the patient, the patient's spouse. He has been having pc right groin pain, RLQ pain for many months, worse in the past few weeks. He has been seen here twice for the same, with bilateral hydroceles but hernias seen on US. He was seen at Urology and no further treatment required or advised. He has chronic constipation issues due to opioid dependence but says he uses Miralax daily with relief. He denies any urinary symptoms, Respiratory symptoms. He denies any nausea or vomiting, appetite change. He and his admit to overwhelming anxiety and he is literally begging for a CT scan because he "just knows his hernia mesh is infected or broken". He had an US last week, with the same concerns, and no hernias were seen. He has no skin color changes in the RLQ and he does not feel and masses or lumps. Historical: - Allergies: Bees; - Home Meds: 1. clonidine HCl 0.1 mg Oral tab once daily (Last dose: 04/04/2016) 2. atenolol 50 mg Oral tab 1 tab once daily (Last dose: 04/04/2016) 3. Lyrica 100mg Oral twice a day (Last dose: 04/04/2016 01:00) 4. Aleve Unknown Oral Unknown PRN (Last dose: 04/04/2016 03:00) 5. Percocet 5-325 mg Oral tab every 12 hours (Last dose: 04/04/2016 05:00) 6. oxycodone 20 mg oral tab twice a day (Last dose: 04/03/2016 21:00) 7. ondansetron HCl 4 mg Oral tab 3 times per day PRN (Last dose: Unknown) 8. spironolacton-hydrochlorothiaz 25-25 mg Oral tab 1 tab once daily (Last dose: 04/04/2016 07:15) 9. Clonazepam 0.5mg in am and 2 tabs at pm Oral (Last dose: Unknown) 10. Sertraline 25 mg nightly (Last dose: 04/03/2016) 11. fungal cream twice a day - PMHx: Hypertension; Anxiety; Bulging Discs; poor leg circulation; - PSHx: Eye Surgey; Bulging Disc; Hernia repair; - The history from nurses notes was reviewed: and I agree with what is documented. - Social history: Smoking status: Patient states former smoker of tobacco. No barriers to communication noted, The patient speaks fluent Yoruba, Speaks appropriately for age. - : The pt / caregiver states he / she is not on anticoagulants. Home medication list is obtained from the patient. - Hospitalizations: : The patient was recently seen at [facility], and discharged 1 month(s) ago, for metabolic encephalopathy due to opioid abuse. - Exposure Risk Screening:: None identified. - Immunization history:: All immunizations up-to-date. - Family history: Not pertinent. - Social history:: the patient is a non-smoker, the patient does not drink alcohol. ROS: 08:48 MS/Skin/Lymph: chronic low back pain, chronic right pain. pc 08:48 All systems are negative except as listed. Exam: 08:48 General Appearance: no acute distress, alert, anxious. pc 08:48 Respiratory: no respiratory distress, normal breath sounds. 08:48 CVS: normal S1 and S2, no murmurs, the patient is tachycardic, at 115 bpm, irregularly irregular 08:48 Abdomen: soft, no organomegaly, normal bowel sounds, no masses appreciated, no hernias palpated with/without gravity or Valsalva mild tenderness in the right inguinal ligament, no skin color changes, no masses. 08:48 Skin: skin color is normal, warm, dry. Vital Signs: 07:44 BP 184 / 89; Pulse 75; Resp 18; Temp 97.0(O); Pulse Ox 96% on R/A; Weight 83.46 kg / ck1 184 lbs (R); Height 6 ft. 0 in. (182.88 cm) (R); Pain 8/10; 08:13 BP 109 / 64 (auto/); pc 08:20 Pulse 110 MON; Pulse Ox 93% ; pc 08:43 BP 99 / 66 (auto/); bcj 08:44 Pulse 118 MON; Pulse Ox 92% ; bcj 10:30 BP 103 / 70 (auto/); bcj 10:30 Pulse 82 MON; Pulse Ox 93% ; bcj 10:43 BP 102 / 69 (auto/); bcj 10:43 Pulse 80 MON; Pulse Ox 90% ; bcj 12:02 BP 145 / 65 (auto/); cjh 12:03 Pulse 56 MON; Pulse Ox 100% ; cjh 12:13 BP 136 / 65 (auto/); cjh 12:15 Pulse 64 MON; Pulse Ox 100% ; cjh 12:20 BP 126 / 75; Pulse 78; Resp 18; Temp 98.9; Pulse Ox 93% ; Pain 7/10; cmb 07:44 Body Mass Index 24.95 (83.46 kg, 182.88 cm) ck1 MDM: 08:46 Abdomen, Flat\\E\\Upright,PA Chest Ordered. EDMS 08:46 ECG WITH READING ER PHYS+CARDIAG ordered. EDMS 08:55 Differential Diagnosis: right inguinal ligament pain; anxiety; constipation; AFib ?new. pc Plan: imaging, EKG, labs. 09:29 Success Coach/Pulse Ox/q 30 min VS ordered. pc 09:29 IV Saline Lock ordered. pc 09:29 Rhythm Strip to chart ordered. pc 09:29 Basic Metabolic Profile Ordered. EDMS 09:29 CBC with Diff Ordered. EDMS 09:29 Cardiac Injury Profile Ordered. EDMS 09:29 Troponin Ordered. EDMS 09:29 TSH with Free T4 Ordered. EDMS 09:31 Test interpretation: EKG. pc 10:03 Financial registration complete. mm15 10:05 [facility] Payment Agreement was scanned into [employer] and attached to record. mm15 10:26 Basic Metabolic Profile Reviewed. pc 10:26 CBC with Diff Reviewed. pc 10:26 Troponin Reviewed. pc 10:26 Abdomen, Flat\\E\\Upright,PA Chest Reviewed. pc 10:28 Basic Metabolic Profile Reviewed. pc 10:28 Cardiac Injury Profile Reviewed. pc 10:28 Troponin Reviewed. pc 10:28 TSH with Free T4 Reviewed. pc 10:44 CT ABD & PELVIS: No Contrast Ordered. EDMS 11:25 ED course: [id number] score of 4. pc 11:39 Abdomen, Flat\\E\\Upright,PA Chest Reviewed. pc 11:55 Data reviewed: old medical records, vital signs, nurses notes, EKG(s), lab test pc results, all radiology studies and available results. Test interpretation: LAB - all labs as ordered have been reviewed, interpreted and considered in the overall management of the clinical presentation; X-RAY - interpreted by Radiologist and personally reviewed, 3-view abdomen series; ?ileus, else nad, interpreted by Radiologist and personally reviewed, Abdomen/Pelvis CT; AAA 3.3cm, up from 2.9 in May 2013, else nad. The patient has been re-examined and re-evaluated. The patient's symptoms have markedly improved after treatment. Physician consultation: Dr. Mary Sloan MD regarding patient's condition, and advises the medications/treatment as provided. and agrees with the treatment provided and advises the discharge plans as outlined. Disposition: The historical points, examination findings, and any diagnostic results supporting the provided diagnosis, were discussed with the patient or legal guardian. The need for outpatient follow up with the provider listed on their discharge instructions was discussed. They were encouraged to return to [facility], or the nearest ED, if symptoms worsen/persist, or for any other questions/concerns. 12:00 Rivaroxaban 20 mg PO once ordered. pc 15:35 ECG/EKG was scanned into [employer] and attached to record. gb 04/05 16:30 ED course: dr sloan faxed formal report of ct abd/p for fu mlg. ml 16:51 ED course: dr sloan faxed formal report of abdl series for fu mlg. EC/01 09:31 Rate is 110 beats/min. Rhythm is irregularly irregular, A fib. QRS [place] is Normal. QRS pc interval is normal. QT interval is normal. No Q waves. T waves are Normal. No ST changes noted. Clinical impression: Atrial Fibrillation with RVR. Signatures: Dispatcher [employer] EDMS Otf Dial MD MD Nancy Clemens MD MD Gaviota Lux, Reg Reg Khushbu-Any,Sadie,RN RN ck1 Kacie LancasterRN RN [facility] Seda Andrews mm15 The chart was reviewed and I authenticate all verbal orders and agree with the evaluation and treatment provided.Corrections: (The following items were deleted from the chart) 09:30 08:48 CVS: regular pulse rate, regular rhythm, normal S1 and S2, no murmurs, pc pc 09:31 08:55 Differential Diagnosis: right inguinal ligament pain; anxiety; constipation pc pc 09: 08:55 Plan: imaging pc pc Attachments: 10:05 [facility] Payment Agreement mm15 15:35 ECG/EKG Chart Complete MTDD
--- NOTE | 2016-04-06 13:53 | EDDOCDS ---
Nurse's Notes [facility] Name: Claudia Palacio Age: 75 yrs Sex: Male : 1940 Arrival Date: 04/04/2016 Time: 07:37 Bed 8 Private MD: Diagnosis: Paroxysmal atrial unfedsisddvc-SERCE-HNEx score 4;Abdominal aortic aneurysm, without rupture-3.3cm;Lower abdominal pain, unspecified-with nondiagnostic labs and CT. Non hernias or mesh abnormalities Presentation: 04/04 07:42 Presenting complaint: Patient states: RLQ pain radiating to right flank ongoing for 4-5 ck1 months. Patient states he has been seen here for same many times before. "I want a CAT scan today, I need one". Adult Sepsis Screening: The patient does not have new or worsening altered mentation. Patient's respiratory rate is less than 22. Systolic blood pressure is greater than 100. Patient has a qSOFA score of 0- Negative Sepsis Screen. Suicide/Homicide risk assessment- the patient denies having any suicidal and/or homicidal ideations and does not present with any other emotional, behavioral or mental health complaints. 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 Transition of care: patient was not received from another setting of care. 07:42 Acuity: AISLINN Level 3 ck1 07:42 Method Of Arrival: Wheelchair ck1 Triage Assessment: 07:51 General: Appears uncomfortable, Behavior is appropriate for age, cooperative. Pain: ck1 Location: right lower quadrant Pain currently is 8 out of 10 on a pain scale. Pain radiates to right flank. Neurological: Level of Consciousness is awake, alert, obeys commands, Oriented to person, place, time. Respiratory: Respiratory effort is unlabored, Respiratory pattern is regular, symmetrical. GI: Abdomen is non- distended Reports nausea. : Denies inability to void. Derm: Skin is pink, warm & dry. Musculoskeletal: Circulation, motion, and sensation intact Range of motion intact in all extremities. Historical: - Allergies: Bees; - Home Meds: 1. clonidine HCl 0.1 mg Oral tab once daily (Last dose: 04/04/2016) 2. atenolol 50 mg Oral tab 1 tab once daily (Last dose: 04/04/2016) 3. Lyrica 100mg Oral twice a day (Last dose: 04/04/2016 01:00) 4. Aleve Unknown Oral Unknown PRN (Last dose: 04/04/2016 03:00) 5. Percocet 5-325 mg Oral tab every 12 hours (Last dose: 04/04/2016 05:00) 6. oxycodone 20 mg oral tab twice a day (Last dose: 04/03/2016 21:00) 7. ondansetron HCl 4 mg Oral tab 3 times per day PRN (Last dose: Unknown) 8. spironolacton-hydrochlorothiaz 25-25 mg Oral tab 1 tab once daily (Last dose: 04/04/2016 07:15) 9. Clonazepam 0.5mg in am and 2 tabs at pm Oral (Last dose: Unknown) 10. Sertraline 25 mg nightly (Last dose: 04/03/2016) 11. fungal cream twice a day - PMHx: Hypertension; Anxiety; Bulging Discs; poor leg circulation; - PSHx: Eye Surgey; Bulging Disc; Hernia repair; - The history from nurses notes was reviewed: and I agree with what is documented. - Social history: Smoking status: Patient states former smoker of tobacco. No barriers to communication noted, The patient speaks fluent [place]de[place], Speaks appropriately for age. - : The pt / caregiver states he / she is not on anticoagulants. Home medication list is obtained from the patient. - Hospitalizations: : The patient was recently seen at [facility], and discharged 1 month(s) ago, for metabolic encephalopathy due to opioid abuse. - Exposure Risk Screening:: None identified. - Immunization history:: All immunizations up-to-date. - Family history: Not pertinent. - Social history:: the patient is a non-smoker, the patient does not drink alcohol. Screenin:57 Screening information is obtained from family members. Fall risk: No risks identified. bcj Assistance ADL's: requires no assistance with activities of daily living. Abuse/DV Screen: The patient / caregiver reports he/she is: not in a situation that causes fear, pain or injury. Nutritional screening: No deficits noted. home support is adequate. 12:03 Advance Directives: There is no active DNR order. [facility] Assessment: 08:57 General: Appears in no apparent distress, comfortable, Behavior is cooperative. Pain: bcj Location: right lower quadrant Pain currently is 8 out of 10 on a pain scale. GI: Abdomen is non- distended Bowel sounds present X 4 quads. Abd is soft Abd is tender to palpation in right lower quadrant. 09:53 General: Appears in no apparent distress, comfortable, Behavior is cooperative. Pain: bcj Location: right lower quadrant Pain currently is 8 out of 10 on a pain scale. Derm: Skin is pink, warm & dry. 10:51 General: Appears in no apparent distress, comfortable, Behavior is cooperative. Pain: bcj Location: right lower quadrant Pain currently is 8 out of 10 on a pain scale. GI: Abdomen is flat, non- distended Bowel sounds present X 4 quads. Derm: Skin is pink, warm & dry. 12:47 General: Appears in no apparent distress, comfortable, Behavior is appropriate for age, cjh cooperative, Provider in room to discuss discharge and follow up with patient, reviewed instructions with this publications writer, no further needs voiced. Pain: Location: right lower quadrant. Respiratory: Airway is patent Respiratory effort is even, unlabored, Respiratory pattern is regular, symmetrical. GI: Bowel sounds present X 4 quads. Abd is soft X 4 quads Abd is tender to palpation in right lower quadrant. Derm: Skin is pink, warm & dry. Vital Signs: 07:44 BP 184 / 89; Pulse 75; Resp 18; Temp 97.0(O); Pulse Ox 96% on R/A; Weight 83.46 kg (R); ck1 Height 6 ft. 0 in. (182.88 cm) (R); Pain 8/10; 08:13 BP 109 / 64 (auto/); pc 08:20 Pulse 110 MON; Pulse Ox 93% ; pc 08:43 BP 99 / 66 (auto/); bcj 08:44 Pulse 118 MON; Pulse Ox 92% ; bcj 10:30 BP 103 / 70 (auto/); bcj 10:30 Pulse 82 MON; Pulse Ox 93% ; bcj 10:43 BP 102 / 69 (auto/); bcj 10:43 Pulse 80 MON; Pulse Ox 90% ; bcj 12:02 BP 145 / 65 (auto/); cjh 12:03 Pulse 56 MON; Pulse Ox 100% ; cjh 12:13 BP 136 / 65 (auto/); cjh 12:15 Pulse 64 MON; Pulse Ox 100% ; cjh 12:20 BP 126 / 75; Pulse 78; Resp 18; Temp 98.9; Pulse Ox 93% ; Pain 7/10; cmb 07:44 Body Mass Index 24.95 (83.46 kg, 182.88 cm) ck1 Vitals: 07:44 Log In Time: April 04, 2016 at 07:44. ck1 ED Course: 07:38 Patient visited by Valerie Gutierrez. az 07:38 Patient moved to Waiting az 07:44 Triage Initiated ck1 07:52 Patient moved to 8 ck1 08:00 Pt greeted and oriented to ED. Patient advised of names of staff involved in care, cmb location of call jordan, wait times and NPO status. Accompanied by Family Member, Patient has correct armband on for positive identification. Bed in low position. Call light in reach. Side rails up X 1. vp product management on. Pulse ox on. NIBP on. 08:35 Otf Dial MD is Attending Physician. pc 08:44 No apparent distress. Resting quietly. Awaiting CT Scan. bcj 08:44 IV is intact. bcj 08:45 Patient visited by Otf Dial MD. pc 08:57 No apparent distress. Waiting to go to radiology. bcj 08:57 The patient / caregiver is instructed regarding the plan of care and ED course. bcj 08:59 Patient visited by Gaudencio De Dios RN. bcj 09:20 EKG done. (by ED staff). Reviewed by Otf Dial MD. nb2 09:21 Patient visited by Micki Edwards. nb2 09:51 Abdomen, Flat\\E\\Upright,PA Chest Returned. EDMS 09:53 No apparent distress. Resting quietly. Waiting to go to radiology. bcj 09:53 Inserted saline lock: 20 gauge in right antecubital area. Labs drawn. (by ED staff). bcj Sent per order to lab. 09:56 Patient visited by Gaudencio De Dios RN. bcj 10:05 [facility] Payment Agreement was scanned into boarding pass and attached to record. mm15 10:41 Abdomen, Flat\\E\\Upright,PA Chest Returned. EDMS 10:54 Patient visited by Gaudencio De Dios RN. bcj 11:26 Patient visited by Lisset Kern. cmb 11:26 Verbal reassurance given. Repositioned patient. cmb 12:03 Mary Slaon MD is Referral Physician. pc 12:03 Discontinued lock intact, bleeding controlled, pressure dressing applied, No cjh redness/swelling at site. No procedures done that require assistance. 12:21 Patient visited by Lisset Kern. cmb 12:26 CT ABD & PELVIS: No Contrast Returned. EDMS 15:35 ECG/EKG was scanned into boarding pass and attached to record. 04/06 09:16 EKG-ADULT Returned. EDMS Order Results: Lab Order: Basic Metabolic Profile; SPEC'M 04/04/16 09:47 Test: GLUCOSE, FASTING; Value: 127; Range: 83-110; Abnormal: Above high normal; Units: MG/DL; Status: F Test: BLOOD UREA NITROGEN; Value: 14; Range: 7-18; Units: MG/DL; Status: F Test: CREATININE FOR GFR; Value: 0.98; Range: 0.70-1.30; Units: MG/DL; Status: F Test: GLOMERULAR FILTRATION RATE; Value: > 60.0; Range: >42; Status: F Test: SODIUM LEVEL; Value: 137; Range: 136-145; Units: MEQ/L; Status: F Test: POTASSIUM SERUM; Value: 3.6; Range: 3.5-5.1; Units: MEQ/L; Status: F Test: CHLORIDE LEVEL; Value: 98; Range: 98-107; Units: MEQ/L; Status: F Test: CARBON DIOXIDE LEVEL; Value: 31; Range: 21-32; Units: MEQ/L; Status: F Test: ANION GAP; Value: 8; Range: 8-16; Units: MEQ/L; Status: F Test: CALCIUM LEVEL; Value: 9.9; Range: 8.8-10.2; Units: MG/DL; Status: F Test Note: ; Units are mL/min/1.73 m2 Chronic Kidney Disease Staging per NKF: Stage I & II GFR >=60 Normal to Mildly Decreased Stage III GFR 30-59 Moderately Decreased Stage IV GFR 15-29 Severely Decreased Stage V GFR <15 Very Little GFR Left ESRD GFR <15 on SERVICE DIRECTOR Lab Order: CBC with Diff; SPEC'M 04/04/16 09:47 Test: WHITE BLOOD COUNT; Value: 6.6; Range: 4.0-10.0; Units: K/mm3; Status: F Test: RED BLOOD COUNT; Value: 5.76; Range: 4.30-6.10; Units: M/mm3; Status: F Test: HEMOGLOBIN; Value: 17.0; Range: 14.0-18.0; Units: g/dl; Status: F Test: HEMATOCRIT; Value: 49.7; Range: 42.0-52.0; Units: %; Status: F Test: MEAN CORPUSCULAR VOLUME; Value: 86.3; Range: 80.0-96.0; Units: fl; Status: F Test: MEAN CORPUSCULAR HEMOGLOBIN; Value: 29.6; Range: 27.0-33.0; Units: pg; Status: F Test: MEAN CORPUSCULAR HGB CONC; Value: 34.3; Range: 32.0-36.5; Units: g/dl; Status: F Test: RED CELL DISTRIBUTION WIDTH; Value: 12.0; Range: 11.5-14.5; Units: %; Status: F Test: PLATELET COUNT, AUTOMATED; Value: 214; Range: 150-450; Units: k/mm3; Status: F Test: NEUTROPHILS %; Value: 70.3; Range: 36.0-66.0; Abnormal: Above high normal; Units: %; Status: F Test: LYMPH %; Value: 18.2; Range: 24.0-44.0; Abnormal: Below low normal; Units: %; Status: F Test: MONO %; Value: 8.1; Range: 0.0-5.0; Abnormal: Above high normal; Units: %; Status: F Test: EOS %; Value: 0.8; Range: 0.0-3.0; Units: %; Status: F Test: BASO %; Value: 0.6; Range: 0.0-1.0; Units: %; Status: F Test: LARGE UNSTAINED CELL %; Value: 2.0; Range: 0.0-4.0; Units: %; Status: F Test: NEUTROPHILS #; Value: 4.6; Range: 1.8-7.7; Units: K/mm3; Status: F Test: LYMPH #; Value: 1.2; Range: 1.5-4.5; Abnormal: Below low normal; Units: K/mm3; Status: F Test: MONO #; Value: 0.5; Range: 0.0-0.8; Units: K/mm3; Status: F Test: EOS #; Value: 0.0; Range: 0.0-0.50; Units: K/mm3; Status: F Test: BASO #; Value: 0.0; Range: 0.0-0.2; Units: K/mm3; Status: F Test: LARGE UNSTAINED CELL #; Value: 0.1; Range: 0.0-0.4; Units: K/mm3; Status: F Lab Order: Cardiac Injury Profile; 04/04/16 09:47 Test: CPK CREATINE PHOSPHOKINASE; Value: 48; Range: 39-308; Units: U/L; Status: F Test: CK-MB VALUE MASS; Value: 1.0; Range: 0.0-3.6; Units: NG/ML; Status: F Test: MB/CK RELATIVE INDEX; Value: 2.08; Range: < OR =4; Status: F Test Note: ; DIAGNOSIS CRITERIA MMB ng/ml Relative Index (RI) NON-AMI < or = 5 N/A MARTIN ZONE > 5 < or = 4 AMI > 5 > 4 Lab Order: Troponin; 04/04/16 09:47 Test: TROPONIN I; Value: 0.02; Range: < 0.10; Units: NG/ML; Status: F Test Note: ; Troponin I Reference Interval for Myze LOCI: 99th Percentile= 0.00-0.045 ng/ml Risk Stratification: <= 0.10 ng/ml Decreased Risk for Adverse Clinical Events. 0.10-1.50 ng/ml Increased Risk for Adverse Clinical Events. Evaluation of additional criterion and/or repeat testing in 2-6 hours is suggested to rule out myocardial damage. >= 1.50 ng/ml Indicative of Myocardial Injury. Lab Order: TSH with Free T4; 04/04/16 09:47 Test: THYROID STIMULATING HORMONE; Value: 0.850; Range: 0.358-3.740; Units: uIU/ML; Status: F Test: FREE T4; Value: 1.40; Range: 0.76-1.46; Units: NG/DL; Status: F Radiology Order: Abdomen, Flat\\E\\Upright,PA Chest Test: Abdomen, Flat\\E\\Upright,PA Chest REASON FOR EXAMINATION: Abdomen Pain; Abdominal series: Three views.; ; History: Abdominal pain.; ; Findings: Upright chest radiograph is compared with the February 28, 2016 prior; study. The lungs are better inflated and clear. Pleural angles are sharp.; Heart size is normal. The aorta is calcific and tortuous. There is no evidence; of infiltrate or free subdiaphragmatic air.; ; Supine and erect views of the abdomen demonstrate that the patient is status post; laminectomy at L4 and L5. Right inguinal hernia repair coils are seen. There; are a few loops of air-filled borderline caliber small bowel displaying air-fluid; levels in the left mid abdomen. Air and stool is seen in a nondistended colon; proximally and distally. Flank stripes are intact. Psoas margins are obscured.; No mass or organomegaly is seen.; ; Impression:; ; Central abdominal small bowel air-fluid levels, ileus versus partial small bowel; obstruction. Status post right inguinal hernia repair and L4 and L5 laminectomy.; No active disease in the chest.; ; ; Signed by; Damián Blair MD 04/04/2016 10:30 A; Radiology Order: EKG-ADULT Test: EKG-ADULT REASON FOR EXAMINATION: irregular rhythm ; Stationary ECG Study; 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; : 1940 Requested By: Otf Resendiz; Order Number: [id number] Kishore MD: Colleen Trejo; Measurements; Intervals [place]; Rate: 139 P:; AR: 0 QRS: -14; QRSD: 106 T: 41; QT: 287; QTc: 437; Interpretive Statements; ATRIAL FIBRILLATION WITH RAPID VENTRICULAR RESPONSE; ABNORMAL RHYTHM ECG; NSTTW ABNORMALITY; PRIOR SINUS 81 02/28/16; Electronically Signed On 04-06-2016 8:52:01 EST by Colleen Trejo; Radiology Order: CT ABD & PELVIS: No Contrast Test: CT ABD & PELVIS: No Contrast REASON FOR EXAMINATION: RLQ pain; CT study of the abdomen and pelvis without IV or oral contrast: Renal stone; protocol.; ; History: Right lower quadrant pain.; ; Comparison CT study is from May 08, 2013.; ; CT findings: Preliminary digital legal nurse consultant radiograph demonstrates an unremarkable; bowel gas pattern. 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 This is a little more prominent on the right than on the 2013 prior study.; The liver and the spleen are homogeneous in texture and normal in size. No focal; liver lesion is seen. No adrenal mass is observed on either side. The; gallbladder shows no abnormality. No pancreatic abnormality is seen. The; kidneys are morphologically intact. No hydronephrosis is seen. There is some; vascular calcification in the renal artery on the left which is unchanged. The; abdominal aorta is tortuous. There is a distal abdominal aortic aneurysm; measuring 3.3 cm in greatest diameter. Previous measurement 2.9 cm. A normal; appendix is seen in the right lower quadrant posterior to the cecum although it; is short. No inflammatory changes are seen. Small and large intestinal bowel; loops are unremarkable. No abdominal wall defect is seen. Right inguinal; herniorrhaphy sutures are seen. There are clips in the left inguinal soft; tissues. No bony destructive lesion is seen. 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 Urinary bladder, seminal; vesicles and prostate are unremarkable.; ; Impression:; ; 1. 3.3 cm distal abdominal aortic aneurysm, previous measurement 2.9 cm in 2013.; ; 2. Normal appendix seen.; ; 3. Status post right inguinal hernia repair. Clips in the left groin soft; tissues.; ; 4. 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 No acute intra-abdominal abnormality seen.; ; ; Signed by; Damián Blair MD 04/04/2016 02:24 P; Outcome: 04/04 12:03 Discharge ordered by Provider. pc 12:03 Discharge Assessment: Patient awake, alert and oriented x 3. No cognitive and/or cjh functional deficits noted. Patient verbalized understanding of disposition instructions. patient administered narcotics - no. The following High Risk Discharge criteria are identified: None. Discharged to home ambulatory. Condition: good Condition: stable Condition: improved. Discharge instructions given to patient, family, Instructed on discharge instructions, follow up and referral plans. medication usage, Demonstrated understanding of instructions, medications, Pt was receptive of discharge instructions/ teaching. Prescriptions given X 1. CT Study completed. Property :Personal belongings accompany Pt. 12:52 Patient left the ED. [facility] Signatures: Dispatcher [employer] EDMS Otf Dial MD MD pc Johnson, Bruce, RN RN [place] Claire, Reg Reg tri [place],SadieRN RN ck1 Kacie Lancaster,RN RN [facility] Lisset Kern Marlynn mm15 Valerie Gutierrez Nicole nb2 Chart Complete JEANNIE
--- NOTE | 2016-04-06 13:53 | EDDOCDS ---
Physician Documentation [facility] Name: Nilo Palacio Age: 75 yrs Sex: Male : 1940 Arrival Date: 04/04/2016 Time: 07:37 Bed 8 Private MD: Disposition: 04/04 11:55 Critical Care: Critical care not applicable. pc Disposition: 04/04/16 12:03 Discharged to Home/Self Care. Impression: Paroxysmal atrial fibrillation - CHADS-VASc score 4, Abdominal aortic aneurysm, without rupture - 3.3cm, Lower abdominal pain, unspecified - with nondiagnostic labs and CT. Non hernias or mesh abnormalities . - Condition is Stable. - Discharge Instructions: Abdominal Aortic Aneurysm, Atrial Fibrillation, Abdominal Pain, Adult, [id number]. - Prescriptions for Xarelto 20 mg Oral Tablet - take 1 tablet by ORAL route once daily; 30 tablet. - Medication Reconciliation, Local Pharmacy Hours form. - Follow up: Mary Sloan MD; When: As previously arranged; Reason: Recheck today's complaints, Continuance of care. - Problem is new. - Symptoms are resolved. HPI: 08:48 This 75 yrs old Male presents to ER via Wheelchair with complaints of Groin pc Pain. 08:48 The history is obtained from the patient, the patient's spouse. He has been having pc right groin pain, RLQ pain for many months, worse in the past few weeks. He has been seen here twice for the same, with bilateral hydroceles but hernias seen on US. He was seen at Urology and no further treatment required or advised. He has chronic constipation issues due to opioid dependence but says he uses Miralax daily with relief. He denies any urinary symptoms, Respiratory symptoms. He denies any nausea or vomiting, appetite change. He and his admit to overwhelming anxiety and he is literally begging for a CT scan because he "just knows his hernia mesh is infected or broken". He had an US last week, with the same concerns, and no hernias were seen. He has no skin color changes in the RLQ and he does not feel and masses or lumps. Historical: - Allergies: Bees; - Home Meds: 1. clonidine HCl 0.1 mg Oral tab once daily (Last dose: 04/04/2016) 2. atenolol 50 mg Oral tab 1 tab once daily (Last dose: 04/04/2016) 3. Lyrica 100mg Oral twice a day (Last dose: 04/04/2016 01:00) 4. Aleve Unknown Oral Unknown PRN (Last dose: 04/04/2016 03:00) 5. Percocet 5-325 mg Oral tab every 12 hours (Last dose: 04/04/2016 05:00) 6. oxycodone 20 mg oral tab twice a day (Last dose: 04/03/2016 21:00) 7. ondansetron HCl 4 mg Oral tab 3 times per day PRN (Last dose: Unknown) 8. spironolacton-hydrochlorothiaz 25-25 mg Oral tab 1 tab once daily (Last dose: 04/04/2016 07:15) 9. Clonazepam 0.5mg in am and 2 tabs at pm Oral (Last dose: Unknown) 10. Sertraline 25 mg nightly (Last dose: 04/03/2016) 11. fungal cream twice a day - PMHx: Hypertension; Anxiety; Bulging Discs; poor leg circulation; - PSHx: Eye Surgey; Bulging Disc; Hernia repair; - The history from nurses notes was reviewed: and I agree with what is documented. - Social history: Smoking status: Patient states former smoker of tobacco. No barriers to communication noted, The patient speaks fluent Czech, Speaks appropriately for age. - : The pt / caregiver states he / she is not on anticoagulants. Home medication list is obtained from the patient. - Hospitalizations: : The patient was recently seen at [facility], and discharged 1 month(s) ago, for metabolic encephalopathy due to opioid abuse. - Exposure Risk Screening:: None identified. - Immunization history:: All immunizations up-to-date. - Family history: Not pertinent. - Social history:: the patient is a non-smoker, the patient does not drink alcohol. ROS: 08:48 MS/Skin/Lymph: chronic low back pain, chronic right pain. pc 08:48 All systems are negative except as listed. Exam: 08:48 General Appearance: no acute distress, alert, anxious. pc 08:48 Respiratory: no respiratory distress, normal breath sounds. 08:48 CVS: normal S1 and S2, no murmurs, the patient is tachycardic, at 115 bpm, irregularly irregular 08:48 Abdomen: soft, no organomegaly, normal bowel sounds, no masses appreciated, no hernias palpated with/without gravity or Valsalva mild tenderness in the right inguinal ligament, no skin color changes, no masses. 08:48 Skin: skin color is normal, warm, dry. Vital Signs: 07:44 BP 184 / 89; Pulse 75; Resp 18; Temp 97.0(O); Pulse Ox 96% on R/A; Weight 83.46 kg / ck1 184 lbs (R); Height 6 ft. 0 in. (182.88 cm) (R); Pain 8/10; 08:13 BP 109 / 64 (auto/); pc 08:20 Pulse 110 MON; Pulse Ox 93% ; pc 08:43 BP 99 / 66 (auto/); bcj 08:44 Pulse 118 MON; Pulse Ox 92% ; bcj 10:30 BP 103 / 70 (auto/); bcj 10:30 Pulse 82 MON; Pulse Ox 93% ; bcj 10:43 BP 102 / 69 (auto/); bcj 10:43 Pulse 80 MON; Pulse Ox 90% ; bcj 12:02 BP 145 / 65 (auto/); cjh 12:03 Pulse 56 MON; Pulse Ox 100% ; cjh 12:13 BP 136 / 65 (auto/); cjh 12:15 Pulse 64 MON; Pulse Ox 100% ; cjh 12:20 BP 126 / 75; Pulse 78; Resp 18; Temp 98.9; Pulse Ox 93% ; Pain 7/10; cmb 07:44 Body Mass Index 24.95 (83.46 kg, 182.88 cm) ck1 MDM: 08:46 Abdomen, Flat\\E\\Upright,PA Chest Ordered. EDMS 08:46 ECG WITH READING ER PHYS+CARDIAG ordered. EDMS 08:55 Differential Diagnosis: right inguinal ligament pain; anxiety; constipation; AFib ?new. pc Plan: imaging, EKG, labs. 09:29 Pulp Beater/Pulse Ox/q 30 min VS ordered. pc 09:29 IV Saline Lock ordered. pc 09:29 Rhythm Strip to chart ordered. pc 09:29 Basic Metabolic Profile Ordered. EDMS 09:29 CBC with Diff Ordered. EDMS 09:29 Cardiac Injury Profile Ordered. EDMS 09:29 Troponin Ordered. EDMS 09:29 TSH with Free T4 Ordered. EDMS 09:31 Test interpretation: EKG. pc 10:03 Financial registration complete. mm15 10:05 [facility] Payment Agreement was scanned into [employer] and attached to record. mm15 10:26 Basic Metabolic Profile Reviewed. pc 10:26 CBC with Diff Reviewed. pc 10:26 Troponin Reviewed. pc 10:26 Abdomen, Flat\\E\\Upright,PA Chest Reviewed. pc 10:28 Basic Metabolic Profile Reviewed. pc 10:28 Cardiac Injury Profile Reviewed. pc 10:28 Troponin Reviewed. pc 10:28 TSH with Free T4 Reviewed. pc 10:44 CT ABD & PELVIS: No Contrast Ordered. EDMS 11:25 ED course: [id number] score of 4. pc 11:39 Abdomen, Flat\\E\\Upright,PA Chest Reviewed. pc 11:55 Data reviewed: old medical records, vital signs, nurses notes, EKG(s), lab test pc results, all radiology studies and available results. Test interpretation: LAB - all labs as ordered have been reviewed, interpreted and considered in the overall management of the clinical presentation; X-RAY - interpreted by Radiologist and personally reviewed, 3-view abdomen series; ?ileus, else nad, interpreted by Radiologist and personally reviewed, Abdomen/Pelvis CT; AAA 3.3cm, up from 2.9 in May 2013, else nad. The patient has been re-examined and re-evaluated. The patient's symptoms have markedly improved after treatment. Physician consultation: Dr. Mary Sloan MD regarding patient's condition, and advises the medications/treatment as provided. and agrees with the treatment provided and advises the discharge plans as outlined. Disposition: The historical points, examination findings, and any diagnostic results supporting the provided diagnosis, were discussed with the patient or legal guardian. The need for outpatient follow up with the provider listed on their discharge instructions was discussed. They were encouraged to return to [facility], or the nearest ED, if symptoms worsen/persist, or for any other questions/concerns. 12:00 Rivaroxaban 20 mg PO once ordered. pc 15:35 ECG/EKG was scanned into [employer] and attached to record. gb 04/05 16:30 ED course: dr sloan faxed formal report of ct abd/p for fu mlg. ml 16:51 ED course: dr sloan faxed formal report of abdl series for fu mlg. EC/01 09:31 Rate is 110 beats/min. Rhythm is irregularly irregular, A fib. QRS [place] is Normal. QRS pc interval is normal. QT interval is normal. No Q waves. T waves are Normal. No ST changes noted. Clinical impression: Atrial Fibrillation with RVR. Signatures: Dispatcher [employer] EDMS Otf Dial MD MD Nancy Clemens MD MD Gaviota Lux, Reg Reg Khushbu-Any,Sadie,RN RN ck1 Kacie LancasterRN RN [facility] Seda Andrews mm15 The chart was reviewed and I authenticate all verbal orders and agree with the evaluation and treatment provided.Corrections: (The following items were deleted from the chart) 09:30 08:48 CVS: regular pulse rate, regular rhythm, normal S1 and S2, no murmurs, pc pc 09:31 08:55 Differential Diagnosis: right inguinal ligament pain; anxiety; constipation pc pc 09: 08:55 Plan: imaging pc pc Attachments: 10:05 [facility] Payment Agreement mm15 15:35 ECG/EKG Chart Complete MTDD
== END 2016-04-04 12:52 | disposition home or self-care (01) ==
LOC: M ED 07:37
DX: I48.0 Paroxysmal atrial fibrillation (principal); R10.30 Lower abdominal pain, unspecified; I71.4 Abdominal aortic aneurysm, without rupture; I10 Essential (primary) hypertension; F41.9 Anxiety disorder, unspecified; M51.9 Unspecified thoracic, thoracolumbar and lumbosacral intervertebral disc disorder; Z87.891 Personal history of nicotine dependence; Z79.899 Other long term (current) drug therapy; Z91.030 Bee allergy status

== ENCOUNTER 2016-04-06 13:39 | Emergency (ER) | payer MEDICARE ==
[2016-04-06] MEDS ORDERED: ACETAMINOPHEN 325 MG TAB As Ordered ONE (15:42)
--- NOTE | 2016-04-06 16:15 | EDDOCDS ---
Nurse's Notes [facility] Name: Nilo Palacio Age: 75 yrs Sex: Male : 1940 Arrival Date: 04/06/2016 Time: 13:39 Bed 11 Private MD: Shruti Diagnosis: Pain in right hip Presentation: 04/06 13:46 Presenting complaint: Patient states: that he fell 04/04/2016 while standing up to use ms18 the restroom and injured his R hip. Pt states that the pain has gotten worse since the fall. Adult Sepsis Screening: The patient does not have new or worsening altered mentation. Patient's respiratory rate is less than 22. Systolic blood pressure is greater than 100. Patient has a qSOFA score of 0- Negative Sepsis Screen. Suicide/Homicide risk assessment- the patient denies having any suicidal and/or homicidal ideations and does not present with any other emotional, behavioral or mental health complaints. Status: Patient is not a electronic video games servicer or dependent. Transition of care: patient was not received from another setting of care. 13:46 Method Of Arrival: Walkin/Carried/Asstd ms18 13:51 Acuity: AISLINN Level 3 ms18 Triage Assessment: 13:51 General: Appears in no apparent distress, Behavior is appropriate for age, cooperative. ms18 Pain: Location: right hip Pain currently is 8 out of 10 on a pain scale. Neurological: Level of Consciousness is awake, alert, obeys commands, Oriented to person, place, time. Respiratory: No deficits noted. Derm: Skin is pink, warm & dry. Historical: - Allergies: Bees; - Home Meds: 1. Aleve Oral Unknown PRN 2. atenolol 50 mg Oral tab 1 tab once daily 3. Clonazepam 0.5mg in am and 2 tabs at pm Oral 4. clonidine HCl 0.1 mg Oral tab once daily 5. fungal cream twice a day 6. Lyrica 100mg Oral twice a day 7. ondansetron HCl 4 mg Oral tab 3 times per day PRN 8. oxycodone 20 mg Oral tab twice a day 9. Percocet 5-325 mg Oral tab every 12 hours 10. spironolacton-hydrochlorothiaz 25-25 mg Oral tab 1 tab once daily 11. Xarelto 20 mg oral tab 1 tab once daily pt was started on this med 04/04/2016 - PMHx: Anxiety; Bulging Discs; hernia repair; Hypertension; poor leg circulation; AAA; - PSHx: L eye surgery; microdisecetomy L5 S1; Hernia repair; - Social history: Smoking status: Patient states former smoker of tobacco. No barriers to communication noted, The patient speaks fluent Egyptian. - Family history: Not pertinent. - : The pt / caregiver states he / she is on anticoagulants: Xarelto Home medication list is obtained from the patient. - Exposure Risk Screening:: None identified. Screenin:12 Screening information is obtained from the patient. Fall risk: No risks identified. ead Assistance ADL's: requires no assistance with activities of daily living. Abuse/DV Screen: The patient / caregiver reports he/she is: not in a situation that causes fear, pain or injury. Nutritional screening: No deficits noted. home support is adequate. 16:13 Advance Directives: There is no active DNR order. ead Assessment: 15:00 General: Appears in no apparent distress, comfortable, Behavior is appropriate for age, ead cooperative. Neurological: No deficits noted. Respiratory: Airway is patent Respiratory effort is even, unlabored. 15:00 Musculoskeletal: Reports pain in right hip. ead 16:12 General: Appears in no apparent distress, comfortable, Behavior is appropriate for age, ead cooperative, pleasant. Pain: Pain currently is 2 out of 10 on a pain scale. Neurological: No deficits noted. Respiratory: Airway is patent Respiratory effort is even, unlabored. Derm: Skin is pink, warm & dry. Vital Signs: 13:41 BP 111 / 72; Pulse 66; Resp 16; Temp 97.1(O); Pulse Ox 96% on R/A; Weight 83.46 kg (R); elp Height 6 ft. 0 in. (182.88 cm) (R); Pain 8/10; 16:10 BP 113 / 65; Pulse 52; Resp 16; Temp 99.2(TE); Pulse Ox 94% on R/A; Pain 7/10; sew 13:41 Body Mass Index 24.95 (83.46 kg, 182.88 cm) [facility] Vitals: 13:41 Log In Time: April 06, 2016 at 13:40. [facility] ED Course: 13:40 Patient visited by Aleyda Costello PCA. elp 13:40 Shruti is Private Physician. elp 13:40 Patient moved to Waiting elp 13:42 Patient visited by Aleyda Costello PCA. elp 13:47 Patient moved to Pre RCE elp 13:52 Triage Initiated ms18 14:05 Patient moved to Triage 1 ttb 14:07 Patient visited by Patricia Kennedy PCA. jb5 14:15 Bibiana Malave RN is Primary Nurse. jjr 14:15 Patient moved to 11 jjr 14:16 [facility] jo4 14:16 Otf Dial MD is Attending Physician. jo4 14:20 Patient visited by Kacie Zamora DO. jo4 14:20 Patient visited by Kacie Zamora DO. jo4 15:17 [facility] Payment Agreement was scanned into [employer] and attached to record. mm15 15:25 Patient visited by Bibiana Malave RN. ead 15:52 Mary Sloan MD is Referral Physician. jo4 16:10 Patient visited by Colleen Steel. sew 16:12 No IV's were initiated during this patient's visit. No procedures done that require ead assistance. 16:14 The patient / caregiver is instructed regarding the plan of care and ED course. ead Administered Medications: 15:46 Drug: Acetaminophen 650 mg [acetaminophen 325 mg tablet (2 tabs)] Route: PO; ead Order Results: There are currently no results for this order. Outcome: 15:53 Discharge ordered by Provider. jo4 16:13 Discharge Assessment: Patient awake and alert. obeys commands, Oriented to person, ead place and time. patient administered narcotics - no. The following High Risk Discharge criteria are identified: None. Discharged to home ambulatory, via wheelchair, with significant other. Condition: unchanged. Discharge instructions given to patient, Instructed on discharge instructions, follow up and referral plans. Demonstrated understanding of instructions, Pt was receptive of discharge instructions/ teaching. No special radiology studies were completed. Property sent home with patient. 16:14 Patient left the ED. ead Signatures: Patricia Kennedy PCA CORN PICKER jb5 Linda Saab RN RN Colleen Godoy Teresa RN RN ttb Seda Andrews mm15 Aleyda Costello, CORN PICKER CORN PICKER Bibiana Marshall,RN RN amed Laura FrederickRN RN ms18 Kacie Zamora DO DO jo4 JEANNIE
--- NOTE | 2016-04-06 16:15 | EDDOCDS ---
Physician Documentation [facility] Name: Nilo Palacio Age: 75 yrs Sex: Male : 1940 Arrival Date: 04/06/2016 Time: 13:39 Bed 11 Private MD: Shruti Disposition: 04/06 15:57 I have independently interviewed and examined the patient, and I agree with the pc investigation, diagnosis and treatment plan as documented by the Resident. Disposition: 04/06/16 15:53 Discharged to Home/Self Care. Impression: Pain in right hip. - Condition is Stable. - Discharge Instructions: Arthritis, Nonspecific, [id number]. - Medication Reconciliation, Local Pharmacy Hours form. - Follow up: Mary Sloan MD; When: As previously arranged; Reason: Recheck today's complaints, Continuance of care. - Problem is new. - Symptoms are unchanged. - Notes: You were evaluated in the emergency department for hip pain. Your clinical examination has been negative. You were given Tylenol while in the ED. Please keep your pre-arranged appointment on Saturday at 8:40am with Nilson Jones in Dr. Sloan's office. Historical: - Allergies: Bees; - Home Meds: 1. Aleve Oral Unknown PRN 2. atenolol 50 mg Oral tab 1 tab once daily 3. Clonazepam 0.5mg in am and 2 tabs at pm Oral 4. clonidine HCl 0.1 mg Oral tab once daily 5. fungal cream twice a day 6. Lyrica 100mg Oral twice a day 7. ondansetron HCl 4 mg Oral tab 3 times per day PRN 8. oxycodone 20 mg Oral tab twice a day 9. Percocet 5-325 mg Oral tab every 12 hours 10. spironolacton-hydrochlorothiaz 25-25 mg Oral tab 1 tab once daily 11. Xarelto 20 mg oral tab 1 tab once daily pt was started on this med 04/04/2016 - PMHx: Anxiety; Bulging Discs; hernia repair; Hypertension; poor leg circulation; AAA; - PSHx: L eye surgery; microdisecetomy L5 S1; Hernia repair; - Social history: Smoking status: Patient states former smoker of tobacco. No barriers to communication noted, The patient speaks fluent Kinyarwanda. - Family history: Not pertinent. - : The pt / caregiver states he / she is on anticoagulants: Xarelto Home medication list is obtained from the patient. - Exposure Risk Screening:: None identified. Vital Signs: 13:41 BP 111 / 72; Pulse 66; Resp 16; Temp 97.1(O); Pulse Ox 96% on R/A; Weight 83.46 kg / elp 184 lbs (R); Height 6 ft. 0 in. (182.88 cm) (R); Pain 8/10; 16:10 BP 113 / 65; Pulse 52; Resp 16; Temp 99.2(TE); Pulse Ox 94% on R/A; Pain 7/10; sew 13:41 Body Mass Index 24.95 (83.46 kg, 182.88 cm) elp MDM: 15:17 Financial registration complete. mm15 15:17 [facility] Payment Agreement was scanned into [employer] and attached to record. mm15 15:34 Acetaminophen Tablet 650 mg PO once ordered. jo4 Administered Medications: 15:46 Drug: Acetaminophen 650 mg [acetaminophen 325 mg tablet (2 tabs)] Route: PO; ead Signatures: Otf Dial MD MD pc Raymond, Jessica, RN RN Seda Ramírez mm15 Bibiana Malave RN RN ead Smith, Mallory, RN RN ms18 Kacie Zamora DO DO jo4 The chart was reviewed and I authenticate all verbal orders and agree with the evaluation and treatment provided.Attachments: 15:17 [facility] Payment Agreement mm15 MTDD
--- NOTE | 2016-04-08 17:14 | EDDOCDS ---
Nurse's Notes [facility] Name: Nilo Palacio Age: 75 yrs Sex: Male : 1940 Arrival Date: 04/06/2016 Time: 13:39 Bed 11 Private MD: Shruti Diagnosis: Pain in right hip Presentation: 04/06 13:46 Presenting complaint: Patient states: that he fell 04/04/2016 while standing up to use ms18 the restroom and injured his R hip. Pt states that the pain has gotten worse since the fall. Adult Sepsis Screening: The patient does not have new or worsening altered mentation. Patient's respiratory rate is less than 22. Systolic blood pressure is greater than 100. Patient has a qSOFA score of 0- Negative Sepsis Screen. Suicide/Homicide risk assessment- the patient denies having any suicidal and/or homicidal ideations and does not present with any other emotional, behavioral or mental health complaints. Status: Patient is not a customer service advisor or dependent. Transition of care: patient was not received from another setting of care. 13:46 Method Of Arrival: Walkin/Carried/Asstd ms18 13:51 Acuity: AISLINN Level 3 ms18 Triage Assessment: 13:51 General: Appears in no apparent distress, Behavior is appropriate for age, cooperative. ms18 Pain: Location: right hip Pain currently is 8 out of 10 on a pain scale. Neurological: Level of Consciousness is awake, alert, obeys commands, Oriented to person, place, time. Respiratory: No deficits noted. Derm: Skin is pink, warm & dry. Historical: - Allergies: Bees; - Home Meds: 1. Aleve Oral Unknown PRN 2. atenolol 50 mg Oral tab 1 tab once daily 3. Clonazepam 0.5mg in am and 2 tabs at pm Oral 4. clonidine HCl 0.1 mg Oral tab once daily 5. fungal cream twice a day 6. Lyrica 100mg Oral twice a day 7. ondansetron HCl 4 mg Oral tab 3 times per day PRN 8. oxycodone 20 mg Oral tab twice a day 9. Percocet 5-325 mg Oral tab every 12 hours 10. spironolacton-hydrochlorothiaz 25-25 mg Oral tab 1 tab once daily 11. Xarelto 20 mg oral tab 1 tab once daily pt was started on this med 04/04/2016 - PMHx: Anxiety; Bulging Discs; hernia repair; Hypertension; poor leg circulation; AAA; - PSHx: L eye surgery; microdisecetomy L5 S1; Hernia repair; - Social history: Smoking status: Patient states former smoker of tobacco. No barriers to communication noted, The patient speaks fluent [place] Citizen. - Family history: Not pertinent. - : The pt / caregiver states he / she is on anticoagulants: Xarelto Home medication list is obtained from the patient. - Exposure Risk Screening:: None identified. Screenin:12 Screening information is obtained from the patient. Fall risk: No risks identified. ead Assistance ADL's: requires no assistance with activities of daily living. Abuse/DV Screen: The patient / caregiver reports he/she is: not in a situation that causes fear, pain or injury. Nutritional screening: No deficits noted. home support is adequate. 16:13 Advance Directives: There is no active DNR order. ead Assessment: 15:00 General: Appears in no apparent distress, comfortable, Behavior is appropriate for age, ead cooperative. Neurological: No deficits noted. Respiratory: Airway is patent Respiratory effort is even, unlabored. 15:00 Musculoskeletal: Reports pain in right hip. ead 16:12 General: Appears in no apparent distress, comfortable, Behavior is appropriate for age, ead cooperative, pleasant. Pain: Pain currently is 2 out of 10 on a pain scale. Neurological: No deficits noted. Respiratory: Airway is patent Respiratory effort is even, unlabored. Derm: Skin is pink, warm & dry. Vital Signs: 13:41 BP 111 / 72; Pulse 66; Resp 16; Temp 97.1(O); Pulse Ox 96% on R/A; Weight 83.46 kg (R); elp Height 6 ft. 0 in. (182.88 cm) (R); Pain 8/10; 16:10 BP 113 / 65; Pulse 52; Resp 16; Temp 99.2(TE); Pulse Ox 94% on R/A; Pain 7/10; sew 13:41 Body Mass Index 24.95 (83.46 kg, 182.88 cm) [facility] Vitals: 13:41 Log In Time: April 06, 2016 at 13:40. [facility] ED Course: 13:40 Patient visited by Aleyda Costello PCA. elp 13:40 Shruti is Private Physician. elp 13:40 Patient moved to Waiting elp 13:42 Patient visited by Aleyda Costello PCA. elp 13:47 Patient moved to Pre RCE elp 13:52 Triage Initiated ms18 14:05 Patient moved to Triage 1 ttb 14:07 Patient visited by Patricia Kennedy PCA. jb5 14:15 Bibiana Malave RN is Primary Nurse. jjr 14:15 Patient moved to 11 jjr 14:16 K[facility] jo4 14:16 Otf Dial MD is Attending Physician. jo4 14:20 Patient visited by Kacie Zamora DO. jo4 14:20 Patient visited by Kacie Zamora DO. jo4 15:17 [facility] Payment Agreement was scanned into [employer] and attached to record. mm15 15:25 Patient visited by Bibiana Malave RN. ead 15:52 Mary Sloan MD is Referral Physician. jo4 16:10 Patient visited by Colleen Steel. sew 16:12 No IV's were initiated during this patient's visit. No procedures done that require ead assistance. 16:14 The patient / caregiver is instructed regarding the plan of care and ED course. ead 17:33 T-Sheet-- Draft Copy was scanned into [employer] and attached to record. klr Administered Medications: 15:46 Drug: Acetaminophen 650 mg [acetaminophen 325 mg tablet (2 tabs)] Route: PO; ead Order Results: There are currently no results for this order. Outcome: 15:53 Discharge ordered by Provider. jo4 16:13 Discharge Assessment: Patient awake and alert. obeys commands, Oriented to person, ead place and time. patient administered narcotics - no. The following High Risk Discharge criteria are identified: None. Discharged to home ambulatory, via wheelchair, with significant other. Condition: unchanged. Discharge instructions given to patient, Instructed on discharge instructions, follow up and referral plans. Demonstrated understanding of instructions, Pt was receptive of discharge instructions/ teaching. No special radiology studies were completed. Property sent home with patient. 16:14 Patient left the ED. ead Signatures: Patricia Kennedy PCA BAKERY DECORATOR jb5 Linda Saab, RN RN jjr Damián, Daria Arias, RN RN Seda Mendez mm15 Aleyda Costello, BAKERY DECORATOR BAKERY DECORATOR elp Ananda,Bibiana,RN RN Laura Nicholas,RN RN ms18 Noah, Kacie, DO jo4 [facility] Chart Complete MTDD
--- NOTE | 2016-04-08 17:14 | EDDOCDS ---
Physician Documentation [facility] Name: Nilo Palacio Age: 75 yrs Sex: Male : 1940 Arrival Date: 04/06/2016 Time: 13:39 Bed 11 Private MD: Shruti Disposition: 04/06 15:57 I have independently interviewed and examined the patient, and I agree with the pc investigation, diagnosis and treatment plan as documented by the Resident. Disposition: 04/06/16 15:53 Discharged to Home/Self Care. Impression: Pain in right hip. - Condition is Stable. - Discharge Instructions: Arthritis, Nonspecific, [id number]. - Medication Reconciliation, Local Pharmacy Hours form. - Follow up: Mary Sloan MD; When: As previously arranged; Reason: Recheck today's complaints, Continuance of care. - Problem is new. - Symptoms are unchanged. - Notes: You were evaluated in the emergency department for hip pain. Your clinical examination has been negative. You were given Tylenol while in the ED. Please keep your pre-arranged appointment on Saturday at 8:40am with Nilson Jones in Dr. Sloan's office. Historical: - Allergies: Bees; - Home Meds: 1. Aleve Oral Unknown PRN 2. atenolol 50 mg Oral tab 1 tab once daily 3. Clonazepam 0.5mg in am and 2 tabs at pm Oral 4. clonidine HCl 0.1 mg Oral tab once daily 5. fungal cream twice a day 6. Lyrica 100mg Oral twice a day 7. ondansetron HCl 4 mg Oral tab 3 times per day PRN 8. oxycodone 20 mg Oral tab twice a day 9. Percocet 5-325 mg Oral tab every 12 hours 10. spironolacton-hydrochlorothiaz 25-25 mg Oral tab 1 tab once daily 11. Xarelto 20 mg oral tab 1 tab once daily pt was started on this med 04/04/2016 - PMHx: Anxiety; Bulging Discs; hernia repair; Hypertension; poor leg circulation; AAA; - PSHx: L eye surgery; microdisecetomy L5 S1; Hernia repair; - Social history: Smoking status: Patient states former smoker of tobacco. No barriers to communication noted, The patient speaks fluent Yakut. - Family history: Not pertinent. - : The pt / caregiver states he / she is on anticoagulants: Xarelto Home medication list is obtained from the patient. - Exposure Risk Screening:: None identified. Vital Signs: 13:41 BP 111 / 72; Pulse 66; Resp 16; Temp 97.1(O); Pulse Ox 96% on R/A; Weight 83.46 kg / elp 184 lbs (R); Height 6 ft. 0 in. (182.88 cm) (R); Pain 8/10; 16:10 BP 113 / 65; Pulse 52; Resp 16; Temp 99.2(TE); Pulse Ox 94% on R/A; Pain 7/10; sew 13:41 Body Mass Index 24.95 (83.46 kg, 182.88 cm) elp MDM: 15:17 Financial registration complete. mm15 15:17 [facility] Payment Agreement was scanned into [employer] and attached to record. mm15 15:34 Acetaminophen Tablet 650 mg PO once ordered. jo4 17:33 T-Sheet-- Draft Copy was scanned into [employer] and attached to record. klr Administered Medications: 15:46 Drug: Acetaminophen 650 mg [acetaminophen 325 mg tablet (2 tabs)] Route: PO; ead Signatures: Otf Dial MD MD pc Raymond, Jessica RN RN Seda Ramírez mm15 Bibiana Malave RN RN ead Smith, Mallory, RN RN [id number] Kacie Zamora DO DO joUnique Trinh The chart was reviewed and I authenticate all verbal orders and agree with the evaluation and treatment provided.Attachments: 15:17 [facility] Payment Agreement mm15 17:33 T-Sheet-- Draft Copy klr Chart Complete MTDD
--- NOTE | 2016-04-08 17:14 | EDDOCDS ---
Physician Documentation [facility] Name: Nilo Palacio Age: 75 yrs Sex: Male : 1940 Arrival Date: 04/06/2016 Time: 13:39 Bed 11 Private MD: Shruti Disposition: 04/06 15:57 I have independently interviewed and examined the patient, and I agree with the pc investigation, diagnosis and treatment plan as documented by the Resident. Disposition: 04/06/16 15:53 Discharged to Home/Self Care. Impression: Pain in right hip. - Condition is Stable. - Discharge Instructions: Arthritis, Nonspecific, [id number]. - Medication Reconciliation, Local Pharmacy Hours form. - Follow up: Mary Sloan MD; When: As previously arranged; Reason: Recheck today's complaints, Continuance of care. - Problem is new. - Symptoms are unchanged. - Notes: You were evaluated in the emergency department for hip pain. Your clinical examination has been negative. You were given Tylenol while in the ED. Please keep your pre-arranged appointment on Saturday at 8:40am with Nilson Jones in Dr. Sloan's office. Historical: - Allergies: Bees; - Home Meds: 1. Aleve Oral Unknown PRN 2. atenolol 50 mg Oral tab 1 tab once daily 3. Clonazepam 0.5mg in am and 2 tabs at pm Oral 4. clonidine HCl 0.1 mg Oral tab once daily 5. fungal cream twice a day 6. Lyrica 100mg Oral twice a day 7. ondansetron HCl 4 mg Oral tab 3 times per day PRN 8. oxycodone 20 mg Oral tab twice a day 9. Percocet 5-325 mg Oral tab every 12 hours 10. spironolacton-hydrochlorothiaz 25-25 mg Oral tab 1 tab once daily 11. Xarelto 20 mg oral tab 1 tab once daily pt was started on this med 04/04/2016 - PMHx: Anxiety; Bulging Discs; hernia repair; Hypertension; poor leg circulation; AAA; - PSHx: L eye surgery; microdisecetomy L5 S1; Hernia repair; - Social history: Smoking status: Patient states former smoker of tobacco. No barriers to communication noted, The patient speaks fluent Spanish. - Family history: Not pertinent. - : The pt / caregiver states he / she is on anticoagulants: Xarelto Home medication list is obtained from the patient. - Exposure Risk Screening:: None identified. Vital Signs: 13:41 BP 111 / 72; Pulse 66; Resp 16; Temp 97.1(O); Pulse Ox 96% on R/A; Weight 83.46 kg / elp 184 lbs (R); Height 6 ft. 0 in. (182.88 cm) (R); Pain 8/10; 16:10 BP 113 / 65; Pulse 52; Resp 16; Temp 99.2(TE); Pulse Ox 94% on R/A; Pain 7/10; sew 13:41 Body Mass Index 24.95 (83.46 kg, 182.88 cm) elp MDM: 15:17 Financial registration complete. mm15 15:17 [facility] Payment Agreement was scanned into [employer] and attached to record. mm15 15:34 Acetaminophen Tablet 650 mg PO once ordered. jo4 17:33 T-Sheet-- Draft Copy was scanned into [employer] and attached to record. klr Administered Medications: 15:46 Drug: Acetaminophen 650 mg [acetaminophen 325 mg tablet (2 tabs)] Route: PO; ead Signatures: Otf Dial MD MD pc Raymond, Jessica RN RN Seda Ramírez mm15 Bibiana Malave RN RN ead Smith, Mallory, RN RN [id number] Kacie Zamora DO DO joUnique Trinh The chart was reviewed and I authenticate all verbal orders and agree with the evaluation and treatment provided.Attachments: 15:17 [facility] Payment Agreement mm15 17:33 T-Sheet-- Draft Copy klr Chart Complete MTDD
== END 2016-04-06 16:14 | disposition home or self-care (01) ==
LOC: M ED 13:39
DX: M25.551 Pain in right hip (principal); F41.9 Anxiety disorder, unspecified; M51.9 Unspecified thoracic, thoracolumbar and lumbosacral intervertebral disc disorder; I10 Essential (primary) hypertension; I71.4 Abdominal aortic aneurysm, without rupture; Z79.01 Long term (current) use of anticoagulants; Z79.899 Other long term (current) drug therapy; Z91.030 Bee allergy status

== ENCOUNTER → 2016-09-10 | Outpatient (REF) | payer MEDICARE ==
[~2016-09-10] MED LIST changes: +HYDR-3363 PO; -LIDO5DIS36 TD; +LIDO5DIS41 TD; -LYRI100C10 PO; +OXYC-404 PO; -OXYC1TAB56 PO; +PREG100CA PO; +XARE20TA PO; +ZOFR4TAB3 PO; +ZOLO100T PO
[2016-09-10 19:16] LABS: ALBUMIN 3.9 GM/DL (3.2-5.2); ALBUMIN/GLOBULIN RATIO 1.05 (1.00-1.93); ALKALINE PHOSPHATASE 74 U/L (45-117); ALT/SGPT 17 U/L (12-78); ANION GAP 2 MEQ/L (8-16); AST/SGOT 7 U/L (15-37); BILIRUBIN,TOTAL 0.5 MG/DL (0.2-1.0); BLOOD UREA NITROGEN 13 MG/DL (7-18); CALCIUM LEVEL 9.4 MG/DL (8.8-10.2); CARBON DIOXIDE LEVEL 37 MEQ/L (21-32); CHLORIDE LEVEL 99 MEQ/L (98-107); GLOMERULAR FILTRATION RATE > 60.0 (>42); GLUCOSE, FASTING 89 MG/DL (83-110); POTASSIUM SERUM 4.6 MEQ/L (3.5-5.1); SODIUM LEVEL 138 MEQ/L (136-145); TOTAL PROTEIN 7.6 GM/DL (6.4-8.2)
[2016-09-10 19:31] LABS: BASO % 0.5 % (0.0-1.0); EOS # 0.1 K/mm3 (0.0-0.50); EOS % 1.5 % (0.0-3.0); LARGE UNSTAINED CELL # 0.1 K/mm3 (0.0-0.4); LARGE UNSTAINED CELL % 1.3 % (0.0-4.0); LYMPH # 1.1 K/mm3 (1.5-4.5); LYMPH % 16.4 % (24.0-44.0); MEAN CORPUSCULAR HEMOGLOBIN 30.5 pg (27.0-33.0); MEAN CORPUSCULAR VOLUME 92.3 fl (80.0-96.0); MONO # 0.4 K/mm3 (0.0-0.8); MONO % 6.7 % (0.0-5.0); NEUTROPHILS # 4.5 K/mm3 (1.8-7.7); NEUTROPHILS % 73.6 % (36.0-66.0); PLATELET COUNT, AUTOMATED 194 k/mm3 (150-450); RED CELL DISTRIBUTION WIDTH 12.1 % (11.5-14.5); WHITE BLOOD COUNT 6.2 K/mm3 (4.0-10.0)
[2016-09-11 09:43] LABS: URIC ACID 5.2 MG/DL (3.5-7.2)
== END ==
LOC: M LABDRAW1 14:16
PROVIDERS: ATTEND Physician Assistant Medical
DX: I83.11 Varicose veins of right lower extremity with inflammation (principal)

== ENCOUNTER 2016-12-19 09:58 | Emergency (ER) | payer MEDICARE ==
[~2016-12-19] VITALS: Ht 182.9 cm; Wt 86.3 kg
[~2016-12-19 09:58] MED LIST changes: -HYDR-3363 PO; -XARE20TA PO; -ZOFR4TAB3 PO; -ZOLO100T PO
[2016-12-19] MEDS ORDERED: OXYC30TA72 PO (10:12)
[2016-12-19] MEDS ORDERED: XARE20TA PO (10:16)
[2016-12-19] MEDS ORDERED: CLON0.5T PO (10:16)
[2016-12-19] MEDS ORDERED: ZOLO100T PO (10:16)
[2016-12-19] MEDS ORDERED: ATENOLOL 50 MG TAB PO ONE (10:45)
[2016-12-19 10:47] LABS: BASO % 0.1 % (0.0-1.0); EOS % 0.1 % (0.0-3.0); IMMATURE GRANULOCYTE % 0.7 % (0-0); LYMPH # 0.9 10^3/uL (1.5-4.5); LYMPH % 6.8 % (24.0-44.0); MEAN CORPUSCULAR HEMOGLOBIN 29.5 pg (27.0-33.0); MEAN CORPUSCULAR HGB CONC 35.4 g/dl (32.0-36.5); MEAN CORPUSCULAR VOLUME 83.5 fl (80.0-96.0); MONO # 1.4 10^3/uL (0.0-0.8); MONO % 10.7 % (0.0-5.0); NEUTROPHILS # 10.9 10^3/uL (1.8-7.7); NEUTROPHILS % 81.6 % (36.0-66.0); PLATELET COUNT, AUTOMATED 196 10^3/uL (150-450); RED CELL DISTRIBUTION WIDTH 13.3 % (11.5-14.5); WHITE BLOOD COUNT 13.4 10^3/uL (4.0-10.0)
[2016-12-19 11:21] LABS: ANION GAP 11 MEQ/L (8-16); BLOOD UREA NITROGEN 16 MG/DL (7-18); CALCIUM LEVEL 8.8 MG/DL (8.8-10.2); CARBON DIOXIDE LEVEL 26 MEQ/L (21-32); CHLORIDE LEVEL 91 MEQ/L (98-107); CREATININE FOR GFR 0.71 MG/DL (0.70-1.30); GLOMERULAR FILTRATION RATE > 60.0 (>42); GLUCOSE, FASTING 130 MG/DL (83-110); POTASSIUM SERUM 2.9 MEQ/L (3.5-5.1); SODIUM LEVEL 128 MEQ/L (136-145)
[2016-12-19 11:45] VITALS: BP 164/86
[2016-12-19] MEDS ORDERED: cloNIDine 0.1 MG TAB PO ONE (11:45)
[2016-12-19] MEDS ORDERED: RIVAROXABAN 20 MG TAB (XARELTO) PO ONE (11:45)
[2016-12-19] MEDS ORDERED: POTASSIUM CHLORIDE 10 MEQ SR TABLET PO ONE (11:45)
[2016-12-19 11:54] LABS: MAGNESIUM LEVEL 1.7 MG/DL (1.8-2.4)
[2016-12-19] MEDS ORDERED: ZOFR4TAB3 PO (15:46)
[2016-12-19] MEDS ORDERED: HYDR-3363 PO (15:48)
[2016-12-19 16:12] VITALS: BP 141/78
--- NOTE | 2016-12-20 07:18 | ECGEPIP ---
Stationary ECG Study 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
== END 2016-12-19 16:15 | disposition home or self-care (01) ==
LOC: EDBD 09:58 → M ED 09:58
DX: F11.10 Opioid abuse, uncomplicated (principal); I48.91 Unspecified atrial fibrillation; I10 Essential (primary) hypertension

== ENCOUNTER 2020-09-11 13:27 | Inpatient (IN) | payer MEDICARE ==
[~2020-09-11] VITALS: Ht 182.9 cm; Wt 93.4 kg
[~2020-09-11 13:27] MED LIST changes: -ALDA25TA PO; -CLON0.5T PO; +CLON0.5T2 PO; -CLON1TAB PO; +CLON1TAB8 PO; +HYDR-3363 PO; +SPIR1TAB34 PO; -VICO5TAB16 PO; +VICO5TAB17 PO; +XARE20TA PO; -ZOFR20TA PO; +ZOFR4TAB14 PO; +ZOFR4TAB16 PO; +ZOLO100T PO
[2020-09-11 14:18] LABS: BASO # 0.1 10^3/uL (0.0-0.2); BASO % 0.7 % (0.0-1.0); EOS # 0.2 10^3/uL (0.0-0.5); EOS % 2.8 % (0.0-3.0); HEMATOCRIT 52.1 % (42.0-52.0); HEMOGLOBIN 17.6 g/dl (13.5-17.5); LYMPH # 1.4 10^3/uL (1.5-5.0); LYMPH % 16.4 % (24.0-44.0); MEAN CORPUSCULAR HEMOGLOBIN 28.9 pg (27.0-33.0); MEAN CORPUSCULAR HGB CONC 33.8 g/dl (32.0-36.5); MEAN CORPUSCULAR VOLUME 85.6 fl (80.0-96.0); MONO % 11.6 % (2.0-8.0); NEUTROPHILS # 5.8 10^3/uL (1.5-8.5); NEUTROPHILS % 67.7 % (36.0-66.0); PLATELET COUNT, AUTOMATED 240 10^3/uL (150-450); RED BLOOD COUNT 6.09 10^6/uL (4.30-6.10); WHITE BLOOD COUNT 8.5 10^3/uL (4.0-10.0)
[2020-09-11 14:29] LABS: INR 1.86; PROTHROMBIN TIME 21.8 SECONDS (12.5-14.3)
[2020-09-11 14:54] LABS: ALBUMIN 3.5 GM/DL (3.2-5.2); ALT/SGPT 48 U/L (12-78); BILIRUBIN,DIRECT 0.3 MG/DL (0.0-0.2); BILIRUBIN,TOTAL 0.9 MG/DL (0.2-1.0); BLOOD UREA NITROGEN 24 MG/DL (7-18); CARBON DIOXIDE LEVEL 30 MEQ/L (21-32); CHLORIDE LEVEL 96 MEQ/L (98-107); CREATININE FOR GFR 0.83 MG/DL (0.70-1.30); GLOMERULAR FILTRATION RATE > 60.0 (>35); GLUCOSE, FASTING 101 MG/DL (70-100); LIPASE 171 U/L (73-393); NT-PRO BNP 166 PG/ML (<450); POTASSIUM SERUM 3.8 MEQ/L (3.5-5.1); SODIUM LEVEL 134 MEQ/L (136-145); THYROID STIMULATING HORMONE 0.611 uIU/ML (0.358-3.740); TOTAL PROTEIN 7.3 GM/DL (6.4-8.2)
--- NOTE | 2020-09-11 15:03 | REP ---
INDICATION: CHEST PAIN COMPARISON: 02/28/2016 TECHNIQUE: Portable AP view of the chest FINDINGS: The mediastinum and cardiac silhouette are stable and within normal limits for portable technique. The lung rollins demonstrate chronic changes without acute consolidation, effusion, or pneumothorax. Skeletal structures are intact. IMPRESSION: No acute cardiopulmonary process appreciated. <Electronically signed by Crow Oakley > 09/11/20 [id number]
[2020-09-11] MEDS ORDERED: PERCOCET 5MG/325MG TAB PO ONE (16:25)
[2020-09-11] MEDS ORDERED: OXYC7.5T3 PO (16:42)
[2020-09-11] MEDS ORDERED: SERT50TA29 PO (16:42)
[2020-09-11] MEDS ORDERED: OXYC20TA40 PO (16:42)
[2020-09-11] MEDS ORDERED: PREG100C PO (16:42)
[2020-09-11] MEDS ORDERED: FENT1DIS34 TOP (16:42)
[2020-09-11 17:24] LABS: RSV AMPLIFICATION NEGATIVE (NEGATIVE)
--- NOTE | 2020-09-11 17:36 | HPEPDOC ---
[facility] Medical History & Physical Date of Admission Sep 11, 2020 Date of Service: Sep 11, 2020 History and Physical CHIEF COMPLAINT: Falls HISTORY OF PRESENT ILLNESS: 80-year-old male presents for a several week history of falls. He has a PMHx including DM, opioid dependence, syncope, anxiety, chronic lower back pain and HTN. History is obtained from patient and his daughter at bedside. Currently, he has been bedridden for several years secondary to chronic back pain. He hadn't been able to complete basic ADLs. However, over the past 3 weeks. His weakness has worsened, resulting in falls. History is not clear. However, it appears there may be some dizziness associated with his falls. He denies any head trauma or loss of consciousness. His falls have been unwitnessed. In the ED, he denies chest pain, shortness of breath, abdominal pain, nausea, vomiting, diarrhea, headaches, changes in vision or depressed mood. He does note his chronic lower back pain. He states he was recently started on a fentanyl patch on September 05. PAST MEDICAL HISTORY: #DM2 #Opioid dependence with withdrawal. #Syncope and collapse. #Abdominal aortic aneurysm without rupture. #Paroxysmal atrial fibrillation. #Generalized anxiety disorder. #Moderate recurrent major depression. #HTN #Chronic lower back pain SOCIAL HISTORY: Remote history of smoking. Remote history alcohol abuse. FAMILY HISTORY: Reviewed and non contributory, however patient is not fully aware of relevant medical history. ALLERGIES: Please see below. REVIEW OF SYSTEMS: Negative except as per HPI. HOME MEDICATIONS: Please see below. PHYSICAL EXAMINATION: VITAL SIGNS: See below GENERAL APPEARANCE: NAD, lying comfortably in bed HEENT: NC/AT, left eye blind, EOMI, right PERRL CARDIOVASCULAR: +S1S2, RRR LUNGS: CTA B/L ABDOMEN: soft, NT, +BS, butterfly tattoo over sternum, no abdominal bruit noted EXTREMITIES: very poor skin hygiene b/l LE - severe scaling NEUROLOGICAL: no gross focal deficits PSYCHIATRIC: AAOx3 LABORATORY DATA: See below. MICROBIOLOGY: Please see below. A/P: 80 year old male for worsening weakness, unwitnessed falls, episodes of di zziness. #falls/weakness/dizziness - monitor on tele - check echocardiogram - likely related to his back pain, but rule out cardiac etiology - PT/OT - fall precautions #DM2 - appears to be controlled with diet #HTN - continue atenolol, aldactone 25, HCTZ 25 #Opioid dependence with withdrawal. #Syncope and collapse. #Abdominal aortic aneurysm without rupture. #Paroxysmal atrial fibrillation. - continue atenolol, rate controlled - xarelto for anticoagulation - if falls continue or worsen will need to re-evaluate risk/benefit of anti- coagulation #Generalized anxiety disorder. - continue sertraline, clonazepam #Moderate recurrent major depression. - continue sertraline #Chronic lower back pain - continue home meds - lyrica, fentanyl patch 37.5 q72h, percocet 5 q8hprn #DVT prophylaxis - as above receiving xarelto for afib Disposition: anticipate greater than two midnight stay for workup of possible syncope, falls, dizziness, weakness Vital Signs Vital Signs Date Time Temp Pulse Resp B/P (MAP) Pulse Ox O2 Delivery O2 Flow Rate FiO2 09/11/20 16:35 17 Laboratory Data Labs 24H Laboratory Tests 2 09/11/20 13:53: Immature Granulocyte % (Auto) 0.8, Neutrophils (%) (Auto) 67.7H, Lymphocytes (%) (Auto) 16.4L, Monocytes (%) (Auto) 11.6H, Eosinophils (%) (Auto) 2.8, Basophils (%) (Auto) 0.7, Neutrophils # (Auto) 5.8, Lymphocytes # (Auto) 1.4L, Monocytes # (Auto) 1.0H, Eosinophils # (Auto) 0.2, Basophils # (Auto) 0.1, Nucleated Red Blood Cells % (auto) 0.0, Prothrombin Time 21.8H, Prothromb Time International Ratio 1.86, Activated Partial Thromboplast Time 39.0H, Anion Gap 8, Glomerular Filtration Rate > 60.0, Calcium Level 9.0, Total Bilirubin 0.9, Direct Bilirubin 0.3H, Aspartate Amino Transf (AST/SGOT) 22, Alanine Aminotransferase (ALT/SGPT) 48, Alkaline Phosphatase 83, FO-Kkf-B-Type Natriuretic Peptide 166, Total Protein 7.3, Albumin 3.5, Albumin/Globulin Ratio 0.9, Lipase 171, Thyroid Stimulating Hormone (TSH) 0.611 09/11/20 15:47: Urine Color YELLOW, Urine Appearance CLEAR, Urine pH 5.0, Urine Specific Humphrey 1.018, Urine Protein NEGATIVE, Urine Glucose (UA) NEGATIVE, Urine Ketones NEGATIVE, Urine Blood 1+H, Urine Nitrite NEGATIVE, Urine Bilirubin NEGATIVE, Urine Urobilinogen 2.0H, Urine Leukocyte Esterase NEGATIVE, Urine WBC (Auto) 2, Urine RBC (Auto) 3, Urine Hyaline Casts (Auto) 1, Urine Bacteria (Auto) NEGATIVE, Urine Squamous Epithelial Cells 0, Urine Mucus (Auto) SMALL, Urine Sperm (Auto) 09/11/20 16:32: CBC/BMP Laboratory Tests 09/11/20 13:53 Home Medications Scheduled Atenolol (Atenolol) 50 Mg Tab, 50 MG PO DAILY Clonazepam (Clonazepam) 1 Mg Tab, 1 MG PO QHS Fentanyl (Fentanyl) 37.5 Mcg Patch.td72, 37.5 MCG TOP Q3RD Pregabalin (Pregabalin) 100 Mg Capsule, 100 MG PO TID Rivaroxaban (Xarelto) 20 Mg Tab, 20 MG PO DAILY Sertraline HCl (Sertraline HCl) 50 Mg Tablet, 50 MG PO DAILY Spironolact/Hydrochlorothiazid (Spironolactone-Hctz 25-25 Tab) 1 Ea Tab, 1 TAB PO DAILY Scheduled PRN Clonazepam (Clonazepam) 0.5 Mg Tab, 0.5 MG PO BID PRN for ANXIETY QAM AND QPM Ondansetron HCl (Zofran) 4 Mg Tab, 4 MG PO Q4H PRN for NAUSEA Oxycodone HCl/Acetaminophen (Oxycodon-Acetaminophen 7.5-325) 1 Each Tablet, 1 TAB PO Q8H PRN for PAIN LEVEL 7-10 Allergies Coded Allergies: bee venom protein (honey bee) (Verified Allergy, Unknown, 09/11/20) A-FIB/CHADSVASC A-FIB History Current/History of A-Fib/PAF?: Yes Current PO Anticoag Therapy: Yes CLAUDIA JACOBS MD Sep 11, 2020 17:36
[2020-09-11 19:50] VITALS: BP 182/84
[2020-09-11] MEDS: clonazePAM 1 MG TAB PO SCH (20:14)
[2020-09-11] MEDS: PREGABALIN 100 MG CAP (LYRICA) PO SCH (20:14)
[2020-09-11] MEDS: PERCOCET 5MG/325MG TAB PO PRN (20:15)
[2020-09-11] MEDS ORDERED: MORPHINE 2 MG/ML 1ML VIAL (J2270) IV ONE (23:35)
[2020-09-12] VITALS: BP 137/72
[2020-09-12] MEDS: PERCOCET 5MG/325MG TAB PO PRN ×4 (02:08→22:12)
[2020-09-12] MEDS: ONDANSETRON 4 MG TAB PO PRN ×2 (02:51→12:17)
[2020-09-12 04:00] VITALS: BP 134/79
[2020-09-12 06:14] LABS: HEMATOCRIT 53.9 % (42.0-52.0); HEMOGLOBIN 17.8 g/dl (13.5-17.5); MEAN CORPUSCULAR VOLUME 87.9 fl (80.0-96.0); PLATELET COUNT, AUTOMATED 216 10^3/uL (150-450); RED BLOOD COUNT 6.13 10^6/uL (4.30-6.10); WHITE BLOOD COUNT 8.3 10^3/uL (4.0-10.0)
[2020-09-12 06:46] LABS: ALBUMIN 3.4 GM/DL (3.2-5.2); ALT/SGPT 45 U/L (12-78); BILIRUBIN,TOTAL 1.1 MG/DL (0.2-1.0); BLOOD UREA NITROGEN 19 MG/DL (7-18); CALCIUM LEVEL 9.6 MG/DL (8.8-10.2); CARBON DIOXIDE LEVEL 31 MEQ/L (21-32); CHLORIDE LEVEL 93 MEQ/L (98-107); CREATININE FOR GFR 0.84 MG/DL (0.70-1.30); GLOMERULAR FILTRATION RATE > 60.0 (>35); GLUCOSE, FASTING 100 MG/DL (70-100); POTASSIUM SERUM 4.2 MEQ/L (3.5-5.1); SODIUM LEVEL 130 MEQ/L (136-145)
[2020-09-12 08:00] VITALS: BP 158/72
[2020-09-12] MEDS: PREGABALIN 100 MG CAP (LYRICA) PO SCH ×3 (09:03→20:25)
[2020-09-12] MEDS: atenoloL 50 MG TAB PO SCH (09:04)
[2020-09-12] MEDS: SPIRONOLACTONE 25 MG TAB PO SCH (09:05)
[2020-09-12] MEDS: SERTRALINE HCL 50 MG TAB PO SCH (09:05)
[2020-09-12] MEDS: clonazePAM 0.5 MG TAB PO PRN (09:12)
[2020-09-12] MEDS: NS 1,000 ML IV SCH ×2 (09:12→20:24)
--- NOTE | 2020-09-12 10:53 | IPNPDOC ---
Text Note Date of Service The patient was seen on 09/12/20. NOTE Subjective: Patient seen and examined at bedside. No acute overnight events reported. No further episodes of dizziness. Denies any new medical complaints. Objective: VITAL SIGNS: See below GENERAL APPEARANCE: NAD, lying comfortably in bed HEENT: NC/AT, left eye blind, EOMI, right PERRL CARDIOVASCULAR: +S1S2, RRR LUNGS: CTA B/L ABDOMEN: soft, NT, +BS, butterfly tattoo over sternum, no abdominal bruit noted EXTREMITIES: very poor skin hygiene b/l LE - severe scaling NEUROLOGICAL: no gross focal deficits PSYCHIATRIC: AAOx3 A/P: 80 year old male for worsening weakness, unwitnessed falls, episodes of dizziness. Long history of weakness, being home bound for at least the last year, but able to perform ADLs. Symptoms acutely worsened over the past week. #falls/weakness/dizziness - no events noted on tele - echocardiogram pending - likely related to his back pain, but rule out cardiac etiology - PT/OT - fall precautions #hyponatremia - continue IV fluids #DM2 - appears to be controlled with diet #HTN - continue atenolol, aldactone 25, HCTZ 25 #Opioid dependence with withdrawal. #Syncope and collapse. #Abdominal aortic aneurysm without rupture. #Paroxysmal atrial fibrillation. - continue atenolol, rate controlled - xarelto for anticoagulation - if falls continue or worsen will need to re-evaluate risk/benefit of anti- coagulation #Generalized anxiety disorder. - continue sertraline, clonazepam #Moderate recurrent major depression. - continue sertraline #Chronic lower back pain - continue home meds - lyrica, fentanyl patch 37.5 q72h, percocet 5 q8hprn #DVT prophylaxis - as above receiving xarelto for afib Disposition: no events on tele, could likely transfer to med/surg floor in 24 hours, continue PT/fall precautions VS,Fishbone, I+O VS, Fishbone, I+O Laboratory Tests 09/11/20 13:53 09/12/20 05:53 Vital Signs Date Time Temp Pulse Resp B/P (MAP) Pulse Ox O2 Delivery O2 Flow Rate FiO2 09/12/20 09:45 18 Room Air 09/12/20 09:04 69 158/72 09/12/20 08:00 96.8 96 I&O- Last 24 Hours up to 6 AM 09/12/20 06:00 Intake Total 0 ml Output Total 850 ml Balance -850 ml CLAUDIA JACOBS MD Sep 12, 2020 10:53
[2020-09-12 12:00] VITALS: BP 140/69
--- NOTE | 2020-09-12 15:09 | CR ---
CONSULTATION DATE: 09/12/2020 REASON FOR CONSULTATION: Toe ulceration. HISTORY OF PRESENT ILLNESS: Nilo Palacio is an 80-year-old male who was admitted due to weakness and falls. He is noted to have an ulceration of his left hallux. PAST MEDICAL HISTORY: 1. Diabetes. 2. History of syncope and collapse. 3. Abdominal aortic aneurysm. 4. Paroxysmal atrial fibrillation. 5. Anxiety and depression. 6. Hypertension. 7. Chronic lower back pain. SOCIAL HISTORY: Former smoker. Former alcohol abuse. ALLERGIES: Bee venom. FAMILY HISTORY: Noncontributory. REVIEW OF SYSTEMS: Negative for nausea, vomiting, fever, or chills. PHYSICAL EXAMINATION: VITALS: Patient has been afebrile. EXTREMITIES: On lower extremity examination, pedal pulses are nonpalpable. There is an ulceration to the left hallux. No purulence or necrotic tissue is present. LABORATORY DATA: White blood cell count is 8.3. ASSESSMENT: An 80-year-old diabetic male with left hallux ulceration. TREATMENT: Wound was debrided with a #10 blade in excisional fashion including subcutaneous tissue. Wound care orders placed. Patient should be in foam offloading heel boots while in bed. He should have follow up with me in office once discharged.
[2020-09-12 16:00] VITALS: BP 138/73
[2020-09-12] MEDS: RIVAROXABAN 20 MG TAB (XARELTO) PO SCH (17:33)
[2020-09-12] MEDS: LACTIC ACID 12% LOTION 225 GM BTL TOP SCH (17:34)
[2020-09-12 20:00] VITALS: BP 133/64
[2020-09-12] MEDS: clonazePAM 1 MG TAB PO SCH (20:25)
--- NOTE | 2020-09-12 21:15 | ECGEPIP ---
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
[2020-09-13] VITALS (7 sets, daily range): BP systolic 111–171; BP diastolic 58–80
[2020-09-13] MEDS: PERCOCET 5MG/325MG TAB PO PRN ×3 (04:24→18:14)
[2020-09-13] MEDS: atenoloL 50 MG TAB PO SCH ×2 (09:00→15:43)
[2020-09-13 09:13] LABS: HEMATOCRIT 50.6 % (42.0-52.0); HEMOGLOBIN 16.7 g/dl (13.5-17.5); MEAN CORPUSCULAR HEMOGLOBIN 29.1 pg (27.0-33.0); MEAN CORPUSCULAR VOLUME 88.3 fl (80.0-96.0); PLATELET COUNT, AUTOMATED 213 10^3/uL (150-450); RED BLOOD COUNT 5.73 10^6/uL (4.30-6.10); WHITE BLOOD COUNT 6.6 10^3/uL (4.0-10.0)
--- NOTE | 2020-09-13 09:14 | ECHO ---
ECHOCARDIOGRAM DATE OF PROCEDURE: 09/12/2020 Age: 80 Gender: Male Height: 183 cm Weight: 101 kg REFERRING PHYSICIAN: Nilo Hendrix M.D. INDICATION: Syncope MEASUREMENTS: IVS 1.3 LV 3.9 LVPW 1.1 LA 3.6 Aorta 3.4 Mitral E wave velocity is 35; A wave 50 E prime septal 4.1 E prime lateral 6.8 This study is of acceptable technical quality even though subcostal views are virtually nonexistent and apical views are fair at best. There is underlying sinus rhythm. Left ventricle has normal size, probably normal systolic function with estimated ejection fraction (EF) around 60%. I cannot completely rule out septal wall motion abnormalities based on limitation of the images. The right ventricle has normal size and systolic function. Left atrium appears grossly normal size. Right atrium was poorly visualized but grossly appears normal. Aortic valve is minimally sclerotic but is tricuspid and has preserved mobility. Mitral valve also exhibits mild degenerative abnormalities but preserved mobility of leaflets is noted. Tricuspid valve is normal. Pulmonic valve was not well seen. No pericardial effusion is noted. Inferior vena cava was not visualized. Aortic root is normal. Abdominal aorta was not well seen. Aortic arch appears grossly normal. Doppler interrogation reveals competent aortic valve. There is trace mitral and tricuspid insufficiency. Mitral inflow pattern and tissue Doppler imaging of mitral annulus revealed grade 1 diastolic dysfunction. CONCLUSIONS: 1. Study is of acceptable technical quality, underlying sinus rhythm. 2. Normal left ventricle (LV) size with mild left ventricular hypertrophy (LVH) and preserved LV systolic function, grade 1 diastolic dysfunction. 3. No hemodynamically significant valvular disease. 4. Unable to estimate central venous pressure and pulmonary artery pressure.
[2020-09-13] MEDS: SPIRONOLACTONE 25 MG TAB PO SCH (09:40)
[2020-09-13] MEDS: PREGABALIN 100 MG CAP (LYRICA) PO SCH ×3 (09:40→21:09)
[2020-09-13] MEDS: NS 1,000 ML IV SCH ×2 (09:40→21:10)
[2020-09-13] MEDS: SERTRALINE HCL 50 MG TAB PO SCH (09:41)
[2020-09-13] MEDS: LACTIC ACID 12% LOTION 225 GM BTL TOP SCH (09:41)
[2020-09-13 09:42] LABS: BLOOD UREA NITROGEN 15 MG/DL (7-18); CALCIUM LEVEL 9.2 MG/DL (8.8-10.2); CARBON DIOXIDE LEVEL 36 MEQ/L (21-32); CHLORIDE LEVEL 96 MEQ/L (98-107); CREATININE FOR GFR 0.77 MG/DL (0.70-1.30); GLOMERULAR FILTRATION RATE > 60.0 (>35); GLUCOSE, FASTING 114 MG/DL (70-100); POTASSIUM SERUM 4.1 MEQ/L (3.5-5.1); SODIUM LEVEL 137 MEQ/L (136-145)
[2020-09-13] MEDS: ONDANSETRON 4 MG TAB PO PRN ×3 (09:46→16:32)
[2020-09-13] MEDS: clonazePAM 0.5 MG TAB PO PRN ×2 (09:46→11:27)
[2020-09-13] MEDS ORDERED: METOPROLOL 5 MG/5 ML VIAL IV STA ×2 (15:12→16:48)
[2020-09-13] MEDS: RIVAROXABAN 20 MG TAB (XARELTO) PO SCH (16:32)
--- NOTE | 2020-09-13 18:44 | IPNPDOC ---
Subjective Date Seen The patient was seen on 09/13/20. Subjective Chief Complaint/HPI Mr. Palacio is an 80 year old male with paroxysmal atrial fibrillation, DM type 2, and AAA without rupture who is here for syncope. This morning, he had malaise, but otherwise no chest pain or dyspnea. Due to low BP, his morning atenolol was held. This afternoon, he went into atrial fibrillation with RVR. Gave his morning atenolol now and Lopressor 5mg IV x2 which did control heart rate which is now between 80 to 100. Assessment /Plan Assessment Mr. Palacio is an 80 year old male with paroxysmal atrial fibrillation, DM type 2, and AAA without rupture who is here for syncope. Patient is deconditioned and wi ll need rehab. Looking for placement at this time. Plan/VTE VTE Prophylaxis Ordered?: Yes Plan 1. Syncope -Monitor on telemetry -Patient did have an episode of atrial fibrillation with RVR when atenolol was held. Resolved with restarting atenolol and giving IV Lopressor -Echocardiogram demonstrated EF 60% with grade I diastolic dysfunction 2. DM type 2 -Diet controlled 3. Hypertension -Continue atenolol, spironolactone, and HCTZ 4. Paroxysmal atrial fibrillation -Continue with Xarelto -Continue atenolol 5. General anxiety disorder -Continue sertraline and clonazepam 6. Moderate recurrent major depression -Continue sertraline 7. Chronic low back pain -Continue Lyrica, fentanyl patch, and Percocet 8. DVT ppx -Xarelto Disposition: Pending placement VS, I&O, 24H, Fishbone Vital Signs/I&O Vital Signs Date Time Temp Pulse Resp B/P (MAP) Pulse Ox O2 Delivery O2 Flow Rate FiO2 09/13/20 18:14 18 Room Air 09/13/20 17:35 123 138/70 09/13/20 16:00 97.8 93 I&O- Last 24 Hours up to 6 AM 09/13/20 06:00 Intake Total 1920 ml Output Total 1525 ml Balance 395 ml Laboratory Data 24H LABS Laboratory Tests 2 09/13/20 09:00: Nucleated Red Blood Cells % (auto) 0.0, Anion Gap 5L, Glomerular Filtration Rate > 60.0, Calcium Level 9.2 CBC/BMP Laboratory Tests 09/13/20 09:00 Microbiology Microbiology 09/11/20 Blood Culture - Preliminary, Resulted No growth after 24 hours . All specim... 09/11/20 Blood Culture - Preliminary, Resulted No growth after 24 hours . All specim... ILDA MIRANDA DO Sep 13, 2020 18:44
[2020-09-13] MEDS ORDERED: FENTANYL REMOVAL DOCUMENTATION MISC XX SCH (20:00)
[2020-09-13] MEDS: fentaNYL 25 MCG/HR PATCH TOP SCH (21:09)
[2020-09-13] MEDS: clonazePAM 1 MG TAB PO SCH (21:09)
[2020-09-14] VITALS: BP 131/68
[2020-09-14] MEDS: PERCOCET 5MG/325MG TAB PO PRN ×4 (00:08→20:49)
[2020-09-14 04:00] VITALS: BP 125/83
[2020-09-14 06:11] LABS: HEMATOCRIT 50.6 % (42.0-52.0); HEMOGLOBIN 16.3 g/dl (13.5-17.5); MEAN CORPUSCULAR HEMOGLOBIN 28.7 pg (27.0-33.0); MEAN CORPUSCULAR HGB CONC 32.2 g/dl (32.0-36.5); MEAN CORPUSCULAR VOLUME 89.1 fl (80.0-96.0); PLATELET COUNT, AUTOMATED 223 10^3/uL (150-450); RED BLOOD COUNT 5.68 10^6/uL (4.30-6.10); WHITE BLOOD COUNT 7.2 10^3/uL (4.0-10.0)
[2020-09-14 06:32] LABS: BLOOD UREA NITROGEN 15 MG/DL (7-18); CALCIUM LEVEL 8.7 MG/DL (8.8-10.2); CARBON DIOXIDE LEVEL 30 MEQ/L (21-32); CHLORIDE LEVEL 101 MEQ/L (98-107); CREATININE FOR GFR 0.76 MG/DL (0.70-1.30); GLOMERULAR FILTRATION RATE > 60.0 (>35); GLUCOSE, FASTING 106 MG/DL (70-100); POTASSIUM SERUM 3.5 MEQ/L (3.5-5.1); SODIUM LEVEL 139 MEQ/L (136-145)
[2020-09-14] MEDS ORDERED: POTASSIUM CHLORIDE 10 MEQ SR TABLET PO ONE (07:30)
[2020-09-14 07:40] LABS: MAGNESIUM LEVEL 2.4 MG/DL (1.8-2.4)
[2020-09-14 08:00] VITALS: BP 113/71
[2020-09-14] MEDS: NS 1,000 ML IV SCH ×2 (08:37→20:47)
[2020-09-14] MEDS: SPIRONOLACTONE 25 MG TAB PO SCH (08:38)
[2020-09-14] MEDS: SERTRALINE HCL 50 MG TAB PO SCH (08:38)
[2020-09-14] MEDS: atenoloL 50 MG TAB PO SCH (08:39)
[2020-09-14] MEDS: PREGABALIN 100 MG CAP (LYRICA) PO SCH ×3 (08:40→20:47)
[2020-09-14] MEDS: LACTIC ACID 12% LOTION 225 GM BTL TOP SCH (08:40)
[2020-09-14] MEDS: LIDOCAINE 5% (LIDODERM) PATCH TD SCH (10:11)
[2020-09-14 12:00] VITALS: BP_SYST 0
--- NOTE | 2020-09-14 13:43 | IPNPDOC ---
Subjective Date Seen The patient was seen on 09/14/20. Subjective Chief Complaint/HPI Mr. Palacio is an 80 year old male with paroxysmal atrial fibrillation, DM type 2, and AAA without rupture who is here for syncope. This morning, heart rate is better controlled. Patient reports some chronic back pain. Added on lidocaine patch. Pending placement Objective Physical Examination General Exam: Positive: Alert, Cooperative Eye Exam: Negative: Sclera icteric Neck Exam: Positive: Supple Chest Exam: Positive: Clear to auscultation Heart Exam: Positive: Rate Normal, Irregular Rhythm Abdomen Exam: Positive: Normal bowel sounds, Soft; Negative: Tenderness Neuro Exam: Positive: Normal Speech Psych Exam: Positive: Mood NL Assessment /Plan Assessment Mr. Palacio is an 80 year old male with paroxysmal atrial fibrillation, DM type 2, and AAA without rupture who is here for syncope. Patient is deconditioned and will need rehab. Looking for placement at this time. Plan/VTE VTE Prophylaxis Ordered?: Yes Plan 1. Syncope -Monitor on telemetry -Patient did have an episode of atrial fibrillation with RVR when atenolol was held. Resolved with restarting atenolol and giving IV Lopressor -Echocardiogram demonstrated EF 60% with grade I diastolic dysfunction 2. DM type 2 -Diet controlled 3. Hypertension -Continue atenolol, spironolactone, and HCTZ 4. Paroxysmal atrial fibrillation -Continue with Xarelto -Continue atenolol 5. General anxiety disorder -Continue sertraline and clonazepam 6. Moderate recurrent major depression -Continue sertraline 7. Chronic low back pain -Continue Lyrica, fentanyl patch, and Percocet 8. DVT ppx -Xarelto Disposition: Pending placement VS, I&O, 24H, [facility] Vital Signs/I&O Vital Signs Date Time Temp Pulse Resp B/P (MAP) Pulse Ox O2 Delivery O2 Flow Rate FiO2 09/14/20 08:39 76 113/71 09/14/20 08:00 97.9 18 94 Room Air I&O- Last 24 Hours up to 6 AM 09/14/20 06:00 Intake Total 1830 ml Output Total 1425 ml Balance 405 ml Laboratory Data 24H LABS Laboratory Tests 2 09/14/20 05:40: Nucleated Red Blood Cells % (auto) 0.0, Anion Gap 8, Glomerular Filtration Rate > 60.0, Calcium Level 8.7L, Magnesium Level 2.4 CBC/BMP Laboratory Tests 09/14/20 05:40 Microbiology Microbiology 09/11/20 Blood Culture - Preliminary, Resulted No Growth after 48 hours. All Specime... 09/11/20 Blood Culture - Preliminary, Resulted No Growth after 48 hours. All Specime... ILDA MIRANDA DO Sep 14, 2020 13:42
[2020-09-14 16:00] VITALS: BP 152/86
[2020-09-14] MEDS ORDERED: METOPROLOL 5 MG/5 ML VIAL IV PRN (16:55)
[2020-09-14] MEDS ORDERED: atenoloL 50 MG TAB PO ONE (16:55)
[2020-09-14] MEDS: RIVAROXABAN 20 MG TAB (XARELTO) PO SCH (17:04)
[2020-09-14 20:00] VITALS: BP 141/62
[2020-09-14] MEDS: clonazePAM 1 MG TAB PO SCH (20:47)
[2020-09-14] MEDS: **NOTE PATIENT COMMENT** MISC XX SCH (20:51)
[2020-09-15 04:09] VITALS: BP 149/84
[2020-09-15] MEDS: PERCOCET 5MG/325MG TAB PO PRN ×3 (04:11→22:38)
[2020-09-15] MEDS: ONDANSETRON 4 MG TAB PO PRN (04:13)
[2020-09-15 06:10] LABS: HEMATOCRIT 47.4 % (42.0-52.0); HEMOGLOBIN 15.6 g/dl (13.5-17.5); MEAN CORPUSCULAR HEMOGLOBIN 29.2 pg (27.0-33.0); MEAN CORPUSCULAR HGB CONC 32.9 g/dl (32.0-36.5); MEAN CORPUSCULAR VOLUME 88.8 fl (80.0-96.0); PLATELET COUNT, AUTOMATED 206 10^3/uL (150-450); RED BLOOD COUNT 5.34 10^6/uL (4.30-6.10); WHITE BLOOD COUNT 7.2 10^3/uL (4.0-10.0)
[2020-09-15 06:29] LABS: BLOOD UREA NITROGEN 12 MG/DL (7-18); CALCIUM LEVEL 8.4 MG/DL (8.8-10.2); CARBON DIOXIDE LEVEL 28 MEQ/L (21-32); CHLORIDE LEVEL 104 MEQ/L (98-107); CREATININE FOR GFR 0.65 MG/DL (0.70-1.30); GLOMERULAR FILTRATION RATE > 60.0 (>35); GLUCOSE, FASTING 103 MG/DL (70-100); POTASSIUM SERUM 3.8 MEQ/L (3.5-5.1); SODIUM LEVEL 136 MEQ/L (136-145)
[2020-09-15 08:00] VITALS: BP 163/90
[2020-09-15] MEDS: SPIRONOLACTONE 25 MG TAB PO SCH (08:26)
[2020-09-15] MEDS: SERTRALINE HCL 50 MG TAB PO SCH (08:30)
[2020-09-15] MEDS: PREGABALIN 100 MG CAP (LYRICA) PO SCH ×3 (08:30→20:28)
[2020-09-15] MEDS: NS 1,000 ML IV SCH ×2 (08:30→19:53)
[2020-09-15] MEDS: LIDOCAINE 5% (LIDODERM) PATCH TD SCH (08:31)
[2020-09-15] MEDS: atenoloL 50 MG TAB PO SCH (08:31)
[2020-09-15] MEDS: LACTIC ACID 12% LOTION 225 GM BTL TOP SCH (08:31)
--- NOTE | 2020-09-15 10:53 | IPNPDOC ---
Subjective Date Seen The patient was seen on 09/15/20. Subjective Chief Complaint/HPI Mr. Palacio is an 80 year old male with paroxysmal atrial fibrillation, DM type 2, and AAA without rupture who is here for syncope. Today, he complains of having anxiety and low back pain. He was taking clonazepam PRN in the daytime which may have contributed to his unsteadiness. He is still receiving evening clonazepam. Will try hydroxyzine for anxiety and Kpad for pain. Objective Physical Examination General Exam: Positive: Alert, Cooperative Eye Exam: Negative: Sclera icteric Neck Exam: Positive: Supple Chest Exam: Positive: Clear to auscultation Heart Exam: Positive: Rate Normal, Irregular Rhythm Abdomen Exam: Positive: Normal bowel sounds, Soft Neuro Exam: Positive: Normal Speech Psych Exam: Positive: Mood NL Assessment /Plan Assessment Mr. Palacio is an 80 year old male with paroxysmal atrial fibrillation, DM type 2, and AAA without rupture who is here for syncope. Patient is deconditioned and will need rehab. Looking for placement at this time. Plan/VTE VTE Prophylaxis Ordered?: Yes Plan 1. Syncope -Monitor on telemetry -Echocardiogram demonstrated EF 60% with grade I diastolic dysfunction 2. DM type 2 -Diet controlled 3. Hypertension -Continue atenolol, spironolactone, and HCTZ 4. Paroxysmal atrial fibrillation -Continue with Xarelto -Continue atenolol 5. General anxiety disorder -Continue sertraline and clonazepam -Added PRN hydroxyzine 6. Moderate recurrent major depression -Continue sertraline 7. Chronic low back pain -Continue Lyrica, fentanyl patch, and Percocet -Added Kpad 8. DVT ppx -Xarelto Disposition: Pending placement VS, I&O, 24H, [facility] Vital Signs/I&O Vital Signs Date Time Temp Pulse Resp B/P (MAP) Pulse Ox O2 Delivery O2 Flow Rate FiO2 09/15/20 08:31 93 163/90 09/15/20 08:00 97.5 16 93 Room Air I&O- Last 24 Hours up to 6 AM 09/15/20 06:00 Intake Total 2130 ml Output Total 950 ml Balance 1180 ml Laboratory Data 24H LABS Laboratory Tests 2 09/15/20 05:45: Nucleated Red Blood Cells % (auto) 0.0, Anion Gap 4L, Glomerular Filtration Rate > 60.0, Calcium Level 8.4L CBC/BMP Laboratory Tests 09/15/20 05:45 Microbiology Microbiology 09/11/20 Blood Culture - Preliminary, Resulted No Growth after 72 hours. All specime... 09/11/20 Blood Culture - Preliminary, Resulted No Growth after 72 hours. All specime... ILDA MIRANDA DO Sep 15, 2020 10:53
[2020-09-15 12:00] VITALS: BP_SYST 154; BP_SYST 163; BP_DIAS 67; BP_DIAS 93
[2020-09-15] MEDS: hydrOXYzine 10 MG TAB PO PRN (12:29)
[2020-09-15 16:00] VITALS: BP 162/88
[2020-09-15] MEDS: RIVAROXABAN 20 MG TAB (XARELTO) PO SCH (16:14)
[2020-09-15] MEDS: clonazePAM 1 MG TAB PO SCH (20:29)
[2020-09-15] MEDS: **NOTE PATIENT COMMENT** MISC XX SCH (20:37)
[2020-09-15 22:20] VITALS: BP 140/78
[2020-09-16] MEDS: NS 1,000 ML IV SCH ×3 (00:38→16:08)
[2020-09-16] MEDS: PERCOCET 5MG/325MG TAB PO PRN ×3 (05:12→19:57)
[2020-09-16 05:21] VITALS: BP 164/86
[2020-09-16] MEDS: hydrOXYzine 10 MG TAB PO PRN (06:21)
[2020-09-16 06:32] LABS: HEMATOCRIT 49.4 % (42.0-52.0); HEMOGLOBIN 16.4 g/dl (13.5-17.5); MEAN CORPUSCULAR HEMOGLOBIN 29.2 pg (27.0-33.0); MEAN CORPUSCULAR HGB CONC 33.2 g/dl (32.0-36.5); MEAN CORPUSCULAR VOLUME 87.9 fl (80.0-96.0); PLATELET COUNT, AUTOMATED 207 10^3/uL (150-450); RED BLOOD COUNT 5.62 10^6/uL (4.30-6.10); WHITE BLOOD COUNT 7.1 10^3/uL (4.0-10.0)
[2020-09-16 07:01] LABS: BLOOD UREA NITROGEN 12 MG/DL (7-18); CALCIUM LEVEL 8.8 MG/DL (8.8-10.2); CARBON DIOXIDE LEVEL 26 MEQ/L (21-32); CHLORIDE LEVEL 105 MEQ/L (98-107); CREATININE FOR GFR 0.72 MG/DL (0.70-1.30); GLOMERULAR FILTRATION RATE > 60.0 (>35); GLUCOSE, FASTING 96 MG/DL (70-100); SODIUM LEVEL 138 MEQ/L (136-145)
--- NOTE | 2020-09-16 08:35 | IPNPDOC ---
Subjective Date Seen The patient was seen on 09/16/20. Subjective Chief Complaint/HPI Mr. Palacio is an 80 year old male with paroxysmal atrial fibrillation, DM type 2, and AAA without rupture who is here for syncope. This morning, he denies chest pain or dyspnea, but still has his chronic hip and back pain. He is also anxious. Patient requires positioning of body in ways not feasible in ordinary bed to alleviate chronic hip and back pain. Patient requires frequent body positional changes. Patient would benefit from hospital bed at home. Objective Physical Examination General Exam: Positive: Alert, Cooperative Eye Exam: Negative: Sclera icteric Neck Exam: Positive: Supple Chest Exam: Positive: Clear to auscultation Heart Exam: Positive: Rate Normal, Irregular Rhythm Abdomen Exam: Positive: Normal bowel sounds, Soft Neuro Exam: Positive: Normal Speech Psych Exam: Positive: Mood NL Assessment /Plan Assessment Mr. Palacio is an 80 year old male with paroxysmal atrial fibrillation, DM type 2, and AAA without rupture who is here for syncope. Patient is deconditioned, but family would like him at home. PFS organizing a safe home discharge. Patient requires positioning of body in ways not feasible in ordinary bed to alleviate chronic hip and back pain. Patient requires frequent body positional changes. Patient would benefit from hospital bed at home. Plan/VTE VTE Prophylaxis Ordered?: Yes Plan 1. Syncope -Monitor on telemetry -Echocardiogram demonstrated EF 60% with grade I diastolic dysfunction 2. DM type 2 -Diet controlled 3. Hypertension -Continue atenolol, spironolactone, and HCTZ 4. Paroxysmal atrial fibrillation -Continue with Xarelto -Continue atenolol 5. General anxiety disorder -Continue sertraline and clonazepam -Added PRN hydroxyzine 6. Moderate recurrent major depression -Continue sertraline 7. Chronic low back pain -Continue Lyrica, fentanyl patch, and Percocet -Added Kpad 8. DVT ppx -Xarelto Disposition: Pending safe home discharge. Possibly tomorrow. VS, I&O, 24H, Fishbone Vital Signs/I&O Vital Signs Date Time Temp Pulse Resp B/P (MAP) Pulse Ox O2 Delivery O2 Flow Rate FiO2 09/16/20 05:42 18 Room Air 09/16/20 05:21 98.0 78 164/86 (112) 92 I&O- Last 24 Hours up to 6 AM 09/16/20 06:00 Intake Total 2040 ml Output Total 3100 ml Balance -1060 ml Laboratory Data 24H LABS Laboratory Tests 2 09/16/20 05:36: Nucleated Red Blood Cells % (auto) 0.0, Anion Gap 7L, Glomerular Filtration Rate > 60.0, Calcium Level 8.8 CBC/BMP Laboratory Tests 09/16/20 05:36 Microbiology Microbiology 09/11/20 Blood Culture - Preliminary, Resulted No Growth after 72 hours. All specime... 09/11/20 Blood Culture - Preliminary, Resulted No Growth after 72 hours. All specime... ILDA MIRANDA DO Sep 16, 2020 08:35
[2020-09-16] MEDS: LIDOCAINE 5% (LIDODERM) PATCH TD SCH ×2 (09:00→09:54)
[2020-09-16] MEDS: LACTIC ACID 12% LOTION 225 GM BTL TOP SCH (09:54)
[2020-09-16] MEDS: PREGABALIN 100 MG CAP (LYRICA) PO SCH ×3 (09:55→19:50)
[2020-09-16] MEDS: SERTRALINE HCL 50 MG TAB PO SCH (09:55)
[2020-09-16] MEDS: atenoloL 50 MG TAB PO SCH (09:56)
[2020-09-16] MEDS: SPIRONOLACTONE 25 MG TAB PO SCH (09:56)
[2020-09-16] MEDS: clonazePAM 0.5 MG TAB PO PRN (10:07)
[2020-09-16 14:00] VITALS: BP 132/68
[2020-09-16] MEDS: RIVAROXABAN 20 MG TAB (XARELTO) PO SCH (16:08)
[2020-09-16] MEDS: clonazePAM 1 MG TAB PO SCH (19:50)
[2020-09-16] MEDS: fentaNYL 25 MCG/HR PATCH TOP SCH (19:50)
[2020-09-16] MEDS: **NOTE PATIENT COMMENT** MISC XX SCH (19:52)
[2020-09-16] MEDS: ONDANSETRON 4 MG TAB PO PRN (19:56)
[2020-09-16] MEDS ORDERED: TAMSULOSIN 0.4 MG CAP PO SCH (21:00)
[2020-09-16 22:00] VITALS: BP 140/82
[2020-09-17] MEDS: hydrOXYzine 10 MG TAB PO PRN (02:46)
[2020-09-17] MEDS: PERCOCET 5MG/325MG TAB PO PRN ×2 (02:46→08:11)
[2020-09-17] MEDS: NS 1,000 ML IV SCH (02:47)
[2020-09-17 06:00] VITALS: BP 133/77
[2020-09-17 06:39] LABS: HEMATOCRIT 45.9 % (42.0-52.0); HEMOGLOBIN 14.9 g/dl (13.5-17.5); MEAN CORPUSCULAR HEMOGLOBIN 28.9 pg (27.0-33.0); MEAN CORPUSCULAR HGB CONC 32.5 g/dl (32.0-36.5); PLATELET COUNT, AUTOMATED 194 10^3/uL (150-450); RED BLOOD COUNT 5.16 10^6/uL (4.30-6.10); WHITE BLOOD COUNT 8.6 10^3/uL (4.0-10.0)
[2020-09-17 07:07] LABS: BLOOD UREA NITROGEN 13 MG/DL (7-18); CALCIUM LEVEL 8.4 MG/DL (8.8-10.2); CARBON DIOXIDE LEVEL 26 MEQ/L (21-32); CHLORIDE LEVEL 106 MEQ/L (98-107); CREATININE FOR GFR 0.73 MG/DL (0.70-1.30); GLOMERULAR FILTRATION RATE > 60.0 (>35); GLUCOSE, FASTING 91 MG/DL (70-100); POTASSIUM SERUM 3.7 MEQ/L (3.5-5.1); SODIUM LEVEL 137 MEQ/L (136-145)
[2020-09-17] MEDS ORDERED: FLOM0.4C39 PO (07:41)
[2020-09-17] MEDS: PREGABALIN 100 MG CAP (LYRICA) PO SCH (08:11)
[2020-09-17] MEDS: LIDOCAINE 5% (LIDODERM) PATCH TD SCH (09:00)
[2020-09-17] MEDS: LACTIC ACID 12% LOTION 225 GM BTL TOP SCH (09:00)
[2020-09-17] MEDS: SPIRONOLACTONE 25 MG TAB PO SCH (09:00)
[2020-09-17 10:00] VITALS: BP 112/76
[2020-09-17 10:02] VITALS: BP 112/76
[2020-09-17] MEDS: atenoloL 50 MG TAB PO SCH (10:02)
[2020-09-17] MEDS: SERTRALINE HCL 50 MG TAB PO SCH (10:02)
--- NOTE | 2020-09-17 22:52 | DS.PDOC ---
Discharge Summary General Date of Admission Sep 11, 2020 at 17:26 Date of Discharge Sep 17, 2020 Discharge Summary PROCEDURES PERFORMED DURING STAY: None ADMITTING DIAGNOSES: 1. Weakness 2. Syncope 3. DM type 2 4. Hypertension 5. Opioid dependence 6. Paroxysmal atrial fibrillation 7. Generalized anxiety disorder 8. Depression 9. Chronic low back pain 10. Abdominal aortic aneurysm without rupture DISCHARGE DIAGNOSES: 1. Weakness 2. Syncope 3. DM type 2 4. Hypertension 5. Opioid dependence 6. Paroxysmal atrial fibrillation 7. Generalized anxiety disorder 8. Depression 9. Chronic low back pain 10. Abdominal aortic aneurysm without rupture COMPLICATIONS/CHIEF COMPLAINT: Frequent Falls, Weakness. HISTORY OF PRESENT ILLNESS: Copied from admitting attending's H&P " 80-year-old male presents for a several week history of falls. He has a PMHx including DM, opioid dependence, syncope, anxiety, chronic lower back pain and HTN. History is obtained from patient and his daughter at bedside. Currently, he has been bedridden for several years secondary to chronic back pain. He hadn't been able to complete basic ADLs. However, over the past 3 weeks. His weakness has worsened, resulting in falls. History is not clear. However, it appears there may be some dizziness associated with his falls. He denies any head trauma or loss of consciousness. His falls have been unwitnessed. In the ED, he denies chest pain, shortness of breath, abdominal pain, nausea, vomiting, diarrhea, headaches, changes in vision or depressed mood. He does note his chronic lower back pain. He states he was recently started on a fentanyl patch on September 05. " HOSPITAL COURSE: During hospitalization, physical therapy worked with patient. Patient would require rehabilitation or placement. was having difficulty caring for patient at home. PFS worked on finding rehab/LTC. Local options were not available, so search went out further. Family was not comfortable with this and desired for discharge home. Family and PFS worked for safe home environment for patient. Patient would also benefit from hospital bed at home. Patient requires positioning of body in ways not feasible in ordinary bed to alleviate chronic hip and back pain. Patient requires frequent body positional changes. Today, patient feels ready for home and was discharged home today. DISCHARGE MEDICATIONS: Please see below. ALLERGIES: Please see below. PHYSICAL EXAMINATION ON DISCHARGE: VITAL SIGNS: Please see below. GENERAL: Comfortable, in no apparent distress. HEENT: EOMI, sclera clear. NECK: Supple. RESPIRATORY: Lungs clear to auscultation bilaterally, no rales, wheeze or rhonchi. CARDIOVASCULAR: Irregular rhythm, but controlled rate. ABDOMEN: Soft, nontender, no guarding or rebound tenderness. Normal bowel sounds. PSYCHOLOGICAL: Anxious LABORATORY DATA: Please see below. IMAGING: Radiologist interpretation CXR No acute cardiopulmonary process appreciated. PROGNOSIS: Good ACTIVITY: As tolerated. DIET: 2gm sodium DISCHARGE PLAN: Home with home health services DISPOSITION: Home Health Service. DISCHARGE INSTRUCTIONS: 1. Follow up with PCP in 1 week 2. Follow up with Dr. Mckeon in 1 week DISCHARGE CONDITION: Stable Total time spent on discharge planning, discharge summary, and medication reconciliation: 55 minutes. Vital Signs/I&Os Vital Signs Date Time Temp Pulse Resp B/P (MAP) Pulse Ox O2 Delivery O2 Flow Rate FiO2 09/17/20 10:02 76 112/76 09/17/20 10:00 97.1 16 92 Room Air I&O- Last 24 Hours up to 6 AM 09/17/20 06:00 Intake Total 2380 ml Output Total 3200 ml Balance -820 ml Laboratory Data Labs 24H Laboratory Tests 2 09/17/20 06:14: Nucleated Red Blood Cells % (auto) 0.0, Anion Gap 5L, Glomerular Filtration Rate > 60.0, Calcium Level 8.4L CBC/BMP Laboratory Tests 09/17/20 06:14 Microbiology Microbiology 09/11/20 Blood Culture - Final, Complete NO GROWTH AFTER 5 DAYS 09/11/20 Blood Culture - Final, Complete NO GROWTH AFTER 5 DAYS Discharge Medications Scheduled Atenolol (Atenolol) 50 Mg Tab, 50 MG PO DAILY, (Reported) Clonazepam (Clonazepam) 1 Mg Tab, 1 MG PO QHS, (Reported) Fentanyl (Fentanyl) 37.5 Mcg Patch.td72, 37.5 MCG TOP Q3RD, (Reported) Pregabalin (Pregabalin) 100 Mg Capsule, 100 MG PO TID, (Reported) Rivaroxaban (Xarelto) 20 Mg Tab, 20 MG PO DAILY, (Reported) Sertraline HCl (Sertraline HCl) 50 Mg Tablet, 50 MG PO DAILY, (Reported) Spironolact/Hydrochlorothiazid (Spironolactone-Hctz 25-25 Tab) 1 Ea Tab, 1 TAB PO DAILY, (Reported) Tamsulosin HCl (Flomax) 0.4 Mg Capsule, 0.4 MG PO QHS Scheduled PRN Clonazepam (Clonazepam) 0.5 Mg Tab, 0.5 MG PO BID PRN for ANXIETY, (Reported) QAM AND QPM Ondansetron HCl (Zofran) 4 Mg Tab, 4 MG PO Q4H PRN for NAUSEA, (Reported) Oxycodone HCl/Acetaminophen (Oxycodon-Acetaminophen 7.5-325) 1 Each Tablet, 1 TAB PO Q8H PRN for PAIN LEVEL 7-10, (Reported) Allergies Coded Allergies: bee venom protein (honey bee) (Verified Allergy, Unknown, 09/11/20) ILDA MIRANDA DO Sep 17, 2020 22:52
== END 2020-09-17 12:35 | disposition home health service (06) | DRG 41 ==
LOC: M ED 13:27 → EDBD 13:27 → M ED INP 17:26 → M PCU 19:49 → M MS5PR 09-15 22:20
PROVIDERS: ADMIT Internal Medicine; ATTEND Internal Medicine
PROC: 0JBR0ZZ Excision of Left Foot Subcutaneous Tissue and Fascia, Open Approach (ICD-10-PCS; principal; 2020-09-12)
DX: R29.6 Repeated falls (principal); F11.23 Opioid dependence with withdrawal; F33.1 Major depressive disorder, recurrent, moderate; E87.1 Hypo-osmolality and hyponatremia; R53.1 Weakness; R55 Syncope and collapse; E11.621 Type 2 diabetes mellitus with foot ulcer; I10 Essential (primary) hypertension; I48.0 Paroxysmal atrial fibrillation; F41.1 Generalized anxiety disorder; M54.5 Low back pain; I71.4 Abdominal aortic aneurysm, without rupture; Z66 Do not resuscitate; Z87.891 Personal history of nicotine dependence; Z79.01 Long term (current) use of anticoagulants; Z79.899 Other long term (current) drug therapy; Z91.030 Bee allergy status; L97.529 Non-pressure chronic ulcer of other part of left foot with unspecified severity; M25.559 Pain in unspecified hip

== ENCOUNTER 2020-09-20 10:53 | Inpatient (IN) | payer MEDICARE ==
[~2020-09-20] VITALS: Ht 182.9 cm; Wt 100.0 kg
[~2020-09-20 10:53] MED LIST changes: +FENT1DIS34 TOP; +FLOM0.4C39 PO; +OXYC20TA40 PO; +OXYC7.5T3 PO; +PREG100C PO; +SERT50TA29 PO
[2020-09-20] MEDS ORDERED: clonazePAM 0.5 MG TAB PO ONE (12:20)
[2020-09-20] MEDS ORDERED: PERCOCET 5MG/325MG TAB PO ONE (12:20)
--- NOTE | 2020-09-20 12:38 | REP ---
INDICATION: weakness. COMPARISON: 09/11/2020. TECHNIQUE: Single portable AP view of the chest was performed. FINDINGS: There is no acute infiltrate or pulmonary edema. Lungs are clear. The heart is mildly enlarged. There is calcification and tortuosity of the thoracic aorta. The mediastinal silhouette is otherwise unchanged. The visualized osseous structures are intact. IMPRESSION: No acute pulmonary disease.Mild cardiomegaly. <Electronically signed by Cory Velazco > 09/20/20 [id number]
[2020-09-20 13:38] LABS: BASO % 0.5 % (0.0-1.0); EOS # 0.3 10^3/uL (0.0-0.5); HEMATOCRIT 46.7 % (42.0-52.0); HEMOGLOBIN 15.1 g/dl (13.5-17.5); LYMPH # 1.2 10^3/uL (1.5-5.0); LYMPH % 18.6 % (24.0-44.0); MEAN CORPUSCULAR HEMOGLOBIN 28.8 pg (27.0-33.0); MEAN CORPUSCULAR HGB CONC 32.3 g/dl (32.0-36.5); MEAN CORPUSCULAR VOLUME 89.1 fl (80.0-96.0); MONO # 0.6 10^3/uL (0.0-0.8); MONO % 9.9 % (2.0-8.0); NEUTROPHILS # 4.1 10^3/uL (1.5-8.5); NEUTROPHILS % 66.2 % (36.0-66.0); PLATELET COUNT, AUTOMATED 205 10^3/uL (150-450); RED BLOOD COUNT 5.24 10^6/uL (4.30-6.10); WHITE BLOOD COUNT 6.2 10^3/uL (4.0-10.0)
[2020-09-20 14:23] LABS: ALT/SGPT 18 U/L (12-78); BILIRUBIN,DIRECT 0.2 MG/DL (0.0-0.2); BILIRUBIN,TOTAL 0.9 MG/DL (0.2-1.0); BLOOD UREA NITROGEN 17 MG/DL (7-18); CALCIUM LEVEL 8.9 MG/DL (8.8-10.2); CARBON DIOXIDE LEVEL 33 MEQ/L (21-32); CHLORIDE LEVEL 96 MEQ/L (98-107); CK-MB VALUE MASS < 1.0 NG/ML (<3.6); CPK CREATINE PHOSPHOKINASE 27 U/L (39-308); CREATININE FOR GFR 1.11 MG/DL (0.70-1.30); GLOMERULAR FILTRATION RATE > 60.0 (>35); GLUCOSE, FASTING 107 MG/DL (70-100); SODIUM LEVEL 133 MEQ/L (136-145); TOTAL PROTEIN 6.5 GM/DL (6.4-8.2); TROPONIN I < 0.02 NG/ML (< 0.10)
[2020-09-20 14:46] LABS: RSV AMPLIFICATION NEGATIVE (NEGATIVE)
[2020-09-20] MEDS ORDERED: CLON-412 PO (14:54)
[2020-09-20] MEDS ORDERED: TAMS1CAP17 PO (14:54)
[2020-09-20] MEDS ORDERED: CLON0.5T2 PO (14:54)
--- NOTE | 2020-09-20 16:57 | HPEPDOC ---
[facility] Medical History & Physical Date of Admission Sep 20, 2020 Date of Service: Sep 20, 2020 History and Physical CHIEF COMPLAINT: LE weakness HISTORY OF PRESENT ILLNESS: Patient is 80 year old male with PMH diet controlled DM, chronic back pain on opiate therapy, HTN, anxiety, Afib on Xarelto is brought into the ED by daughter, Gretta, for persistent LE weakness at home and unable to care for self. Patient has been declining over time and has been mostly bedbound recently from trying to get around with a walker in the past. Additionally, he incontinent of urine, making self care more difficult. He denies any acute physical complaints at this time apart from worsening b/l LE weakness. Patient and family is looking for short term Rehab placement. PAST MEDICAL HISTORY: Refer to [facility] PAST SURGICAL HISTORY: L. eye trauma surgery SOCIAL HISTORY: Recent use of alcohol and tobacco. No illicit drug use. FAMILY HISTORY: Father- CVA ALLERGIES: Please see below. REVIEW OF SYSTEMS: 10 point review of system negative except as stated in HPI HOME MEDICATIONS: Please see below. PHYSICAL EXAMINATION: General: No acute distress, Alert. Generalized weakness. Eyes: Normal sclera, EOMI HENT: Atraumatic Cardiovascular: Normal rate, no murmur appreciated. Pulmonary: Clear to auscultation b/l, no wheezing GI: Soft, nontender, nondistended Skin: significant thickening and discoloration of LE b/l below the knees. Nails are long and yellow, very poor skin and nail condition. Neuro: CN grossly intact apart from no pupillary response in L. eye. Strengths equal b/l, 4/5 in b/l UE, 2/5 b/l LE. Psych: oriented x 3 LABORATORY DATA: See below. IMAGING: CXR: No acute pulmonary disease.Mild cardiomegaly. MICROBIOLOGY: Please see below. ASSESSMENT AND PLAN: 1. b/l LE weakness - Acute on chronic weakness with recent hospitalization. - Unable to care for self at home and family also unable to provide sufficient care. - PT and OT to evaluate and treat. Anticipate that patient will require short term rehab placement, family is aware. - Case management consulted for placement evaluation. 2. DM - Diet controlled. Will look at BMP, will not place on any sliding scale insulin at this time. - No treatment for DM outpatient reportedly. 3. Chronic back pain - c/w home medications fetanyl patch and percocet q8h. 4. HTN - resume home med. HCTZ and spironolactone. 5. Afib - Xarelto for AC. Rate controlled. DVT ppx: ASHISH and already on Xarelto Code status: DNR/DNI Vital Signs Vital Signs Date Time Temp Pulse Resp B/P (MAP) Pulse Ox O2 Delivery O2 Flow Rate FiO2 09/20/20 15:20 16 09/20/20 12:01 89 113/90 (98) Room Air 09/20/20 11:18 97.3 Laboratory Data Labs 24H Laboratory Tests 2 09/20/20 13:28: Immature Granulocyte % (Auto) 0.8, Neutrophils (%) (Auto) 66.2H, Lymphocytes (%) (Auto) 18.6L, Monocytes (%) (Auto) 9.9H, Eosinophils (%) (Auto) 4.0H, Basophils (%) (Auto) 0.5, Neutrophils # (Auto) 4.1, Lymphocytes # (Auto) 1.2L, Monocytes # (Auto) 0.6, Eosinophils # (Auto) 0.3, Basophils # (Auto) 0.0, Nucleated Red Blood Cells % (auto) 0.0, Anion Gap 4L, Glomerular Filtration Rate > 60.0, Calcium Level 8.9, Total Bilirubin 0.9, Direct Bilirubin 0.2, Aspartate Amino Transf (AST/SGOT) 15, Alanine Aminotransferase (ALT/SGPT) 18, Alkaline Phosphatase 75, Total Creatine Kinase 27L, Creatine Kinase MB < 1.0, Creatine Kinase MB Relative Index 3.70, Troponin I < 0.02, Total Protein 6.5, Albumin 3.0L, Albumin/Globulin Ratio 0.9 09/20/20 13:53: Urine Color YELLOW, Urine Appearance CLEAR, Urine pH 5.0, Urine Specific [place] 1.009, Urine Protein NEGATIVE, Urine Glucose (UA) NEGATIVE, Urine Ketones NEGATIVE, Urine Blood 2+H, Urine Nitrite NEGATIVE, Urine Bilirubin NEGATIVE, Urine Urobilinogen 0.2, Urine Leukocyte Esterase NEGATIVE, Urine WBC (Auto) 0, Urine RBC (Auto) 10H, Urine Hyaline Casts (Auto) 0, Urine Bacteria (Auto) 1+H, Urine Squamous Epithelial Cells 0, Urine Sperm (Auto) , Coronavirus (COVID- 19)(PCR) NEGATIVE, Influenza Type A (RT-PCR) NEGATIVE, Influenza Type B (RT-PCR) NEGATIVE, Respiratory Syncytial Virus (PCR) NEGATIVE CBC/BMP Laboratory Tests 09/20/20 13:28 Home Medications Scheduled Atenolol (Atenolol) 50 Mg Tab, 50 MG PO DAILY Clonazepam (Clonazepam) 0.5 Mg Tablet, 1 MG PO QHS Clonidine HCl (Clonidine HCl) 0.1 Mg Tablet, 0.1 MG PO QHS Fentanyl (Fentanyl) 37.5 Mcg Patch.td72, 37.5 MCG TOP Q3RD CURRENTLY APPLIED TO RIGHT SHOULDER Pregabalin (Pregabalin) 100 Mg Capsule, 100 MG PO TID Rivaroxaban (Xarelto) 20 Mg Tab, 20 MG PO QPM Sertraline HCl (Sertraline HCl) 50 Mg Tablet, 50 MG PO DAILY Spironolact/Hydrochlorothiazid (Spironolactone-Hctz 25-25 Tab) 1 Ea Tab, 1 TAB PO DAILY Tamsulosin Hcl (Tamsulosin HCl) 0.4 Mg Capsule, 0.4 MG PO DAILY Scheduled PRN Clonazepam (Clonazepam) 0.5 Mg Tab, 0.5 MG PO BID PRN for ANXIETY QAM AND QPM Ondansetron HCl (Zofran) 4 Mg Tab, 4 MG PO Q4H PRN for NAUSEA Oxycodone HCl/Acetaminophen (Oxycodon-Acetaminophen 7.5-325) 1 Each Tablet, 1 TAB PO Q8H PRN for PAIN LEVEL 7-10 Allergies Coded Allergies: bee venom protein (honey bee) (Verified Allergy, Unknown, 09/11/20) A-FIB/CHADSVASC A-FIB History Current/History of A-Fib/PAF?: Yes Current PO Anticoag Therapy: Yes DASH ULLOA MD Sep 20, 2020 16:57
[2020-09-20] MEDS ORDERED: PILL CUTTER 1 EACH XX PRN (17:10)
[2020-09-20] MEDS: MORPHINE 2 MG/ML 1ML VIAL (J2270) IV PRN ×2 (17:32→22:38)
[2020-09-20] MEDS: RIVAROXABAN 20 MG TAB (XARELTO) PO SCH (18:13)
[2020-09-20] MEDS: PREGABALIN 100 MG CAP (LYRICA) PO SCH (20:54)
[2020-09-20] MEDS: cloNIDine 0.1MG TABLET PO SCH (20:55)
[2020-09-20] MEDS: clonazePAM 1 MG TAB PO SCH (20:56)
[2020-09-20] MEDS: PERCOCET 5MG/325MG TAB PO SCH (21:01)
[2020-09-20 22:00] VITALS: BP 122/87
[2020-09-21] MEDS: ACETAMINOPHEN TAB 650MG DOSE (2X325MG) PO PRN ×3 (00:39→15:36)
[2020-09-21] MEDS: MORPHINE 2 MG/ML 1ML VIAL (J2270) IV PRN ×5 (01:42→19:55)
--- NOTE | 2020-09-21 05:16 | ECGEPIP ---
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
[2020-09-21] MEDS: PERCOCET 5MG/325MG TAB PO SCH ×3 (05:44→21:50)
[2020-09-21] MEDS: clonazePAM 0.5 MG TAB PO PRN (05:46)
[2020-09-21 06:00] VITALS: BP 120/82
[2020-09-21 06:47] LABS: HEMATOCRIT 46.4 % (42.0-52.0); HEMOGLOBIN 15.2 g/dl (13.5-17.5); MEAN CORPUSCULAR HEMOGLOBIN 29.3 pg (27.0-33.0); MEAN CORPUSCULAR HGB CONC 32.8 g/dl (32.0-36.5); MEAN CORPUSCULAR VOLUME 89.4 fl (80.0-96.0); PLATELET COUNT, AUTOMATED 187 10^3/uL (150-450); RED BLOOD COUNT 5.19 10^6/uL (4.30-6.10); WHITE BLOOD COUNT 5.3 10^3/uL (4.0-10.0)
[2020-09-21 07:06] LABS: BLOOD UREA NITROGEN 16 MG/DL (7-18); CALCIUM LEVEL 8.7 MG/DL (8.8-10.2); CARBON DIOXIDE LEVEL 31 MEQ/L (21-32); CHLORIDE LEVEL 97 MEQ/L (98-107); CREATININE FOR GFR 0.87 MG/DL (0.70-1.30); GLOMERULAR FILTRATION RATE > 60.0 (>35); GLUCOSE, FASTING 89 MG/DL (70-100); POTASSIUM SERUM 3.2 MEQ/L (3.5-5.1); SODIUM LEVEL 135 MEQ/L (136-145)
[2020-09-21] MEDS ORDERED: POTASSIUM CHLORIDE 10 MEQ SR TABLET PO ONE (08:05)
[2020-09-21] MEDS: PREGABALIN 100 MG CAP (LYRICA) PO SCH ×3 (08:35→19:52)
[2020-09-21] MEDS: ONDANSETRON 4 MG TAB PO PRN ×2 (08:35→19:52)
[2020-09-21] MEDS: TAMSULOSIN 0.4 MG CAP PO SCH (08:36)
[2020-09-21] MEDS: SPIRONOLACTONE 25 MG TAB PO SCH (08:36)
[2020-09-21] MEDS: SERTRALINE HCL 50 MG TAB PO SCH (08:36)
[2020-09-21] MEDS: atenoloL 50 MG TAB PO SCH (08:38)
--- NOTE | 2020-09-21 18:46 | IPNPDOC ---
Date Seen The patient was seen on 09/21/20. Progress Note SUBJECTIVE: Patient reports significant lower back pain, requesting an increase in his regimen. Denies any other complaints apart from chronic pain. K 3.2 this AM, supplementation ordered. OBJECTIVE PHYSICAL EXAMINATION: General: No acute distress, Alert. Generalized weakness. Eyes: Normal sclera, EOMI HENT: Atraumatic Cardiovascular: Normal rate, no murmur appreciated. Pulmonary: Clear to auscultation b/l, no wheezing GI: Soft, nontender, nondistended Skin: significant thickening and discoloration of LE b/l below the knees. Nails are long and yellow, very poor skin and nail condition. Neuro: CN grossly intact apart from no pupillary response in L. eye. Strengths equal b/l, 4/5 in b/l UE, 2/5 b/l LE. Psych: oriented x 3 LABORATORY DATA: See below. IMAGING: CXR: No acute pulmonary disease.Mild cardiomegaly. MICROBIOLOGY: Please see below. ASSESSMENT AND PLAN: 1. b/l LE weakness - Acute on chronic weakness with recent hospitalization. - Unable to care for self at home and family also unable to provide sufficient care. - PT and OT to evaluate and treat. Anticipate that patient will require short term rehab placement. - Case management consulted for placement evaluation. 2. DM - Diet controlled. Will not place on any sliding scale insulin at this time. - No treatment for DM outpatient reportedly. 3. Chronic back pain - c/w home medications fetanyl patch and percocet q8h. - Morphine added for pain in between, increased from 1mg to 2mg q3H PRN today. If Fentanyl patch dose needs to be changed, he will need to be placed on tele for 3 days per hospital protocol between his patch changes. 4. HTN - resume home med. HCTZ and spironolactone. 5. Afib - Xarelto for AC. Rate controlled. DVT ppx: ASHISH and already on Xarelto Code status: DNR/DNI VS, I&O, 24H, Fishbone Vital Signs/I&O Vital Signs Date Time Temp Pulse Resp B/P (MAP) Pulse Ox O2 Delivery O2 Flow Rate FiO2 09/21/20 16:30 12 09/21/20 16:16 Room Air 09/21/20 08:38 94 119/79 09/21/20 06:00 96.9 97 I&O- Last 24 Hours up to 6 AM 09/21/20 06:00 Intake Total 850 ml Balance 850 ml Laboratory Data 24H LABS Laboratory Tests 2 09/21/20 06:02: Nucleated Red Blood Cells % (auto) 0.0, Anion Gap 7L, Glomerular Filtration Rate > 60.0, Calcium Level 8.7L CBC/BMP Laboratory Tests 09/21/20 06:02 DASH ULLOA MD Sep 21, 2020 18:46
[2020-09-21] MEDS: RIVAROXABAN 20 MG TAB (XARELTO) PO SCH (18:51)
[2020-09-21] MEDS: clonazePAM 1 MG TAB PO SCH (19:52)
[2020-09-21] MEDS: cloNIDine 0.1MG TABLET PO SCH (19:55)
[2020-09-21 20:00] VITALS: BP 136/76
[2020-09-22] MEDS: MORPHINE 2 MG/ML 1ML VIAL (J2270) IV PRN ×2 (02:17→11:32)
[2020-09-22] MEDS: PERCOCET 5MG/325MG TAB PO SCH ×3 (05:39→21:29)
[2020-09-22 06:00] VITALS: BP 124/81
[2020-09-22] MEDS ORDERED: POTASSIUM CHLORIDE 10 MEQ SR TABLET PO ONE (08:10)
[2020-09-22 09:00] LABS: GLUCOSE, FASTING 105 MG/DL (70-100)
[2020-09-22 09:01] LABS: BLOOD UREA NITROGEN 20 MG/DL (7-18); CALCIUM LEVEL 9.1 MG/DL (8.8-10.2); CARBON DIOXIDE LEVEL 31 MEQ/L (21-32); CHLORIDE LEVEL 99 MEQ/L (98-107); CREATININE FOR GFR 0.91 MG/DL (0.70-1.30); GLOMERULAR FILTRATION RATE > 60.0 (>35); POTASSIUM SERUM 3.5 MEQ/L (3.5-5.1); SODIUM LEVEL 136 MEQ/L (136-145)
[2020-09-22] MEDS: SPIRONOLACTONE 25 MG TAB PO SCH (09:05)
[2020-09-22] MEDS: TAMSULOSIN 0.4 MG CAP PO SCH (09:05)
[2020-09-22] MEDS: PREGABALIN 100 MG CAP (LYRICA) PO SCH ×3 (09:05→21:29)
[2020-09-22] MEDS: atenoloL 50 MG TAB PO SCH (09:06)
[2020-09-22] MEDS: SERTRALINE HCL 50 MG TAB PO SCH (09:06)
--- NOTE | 2020-09-22 13:59 | CR ---
CONSULTATION DATE: 09/22/2020 Advanced wound care consult via telemedicine. CONSULTATION REQUESTED BY: Dr. Jaquez REASON FOR CONSULTATION: Bilateral lower extremity wounds. Wound care telemedicine provides a visual assessment of a wound or wounds without the benefit of physical examination. It can assist with establishing a diagnosis and etiology. This allows for an initial treatment plan. As wounds often change, it may be necessary to modify the original care. Our recommendation is periodic wound reassessment to monitor treatment. Failure to comply may result in nonhealing of the wound or wounds, possible complications, and/or a poor outcome. The recommendations given will serve as a treatment option. As I will not be following this patient, this care plan will require the attending physician to give and sign the orders. Upon discharge, outpatient followup can be scheduled at our wound care center. This is an 80-year-old male, admitted 3 days earlier for progressive weakness, falls, and a general decline in health to the point where he could not take care of himself appropriately. He lives with his . He is not diabetic,he was last seen in our wound care center in December 2017. At that time, the patient had no open wounds. He did have bilateral lower extremity edema and skin changes hemosiderosis bilaterally suggestive of venous stasis disease. In December 2017, ABIs were performed. The right lower extremity was 1.0 which is normal. The left lower extremity was 0.8, which is borderline normal. Unna boots were applied the patient was seen a week later with improvement but then never followed up. When seen today, there is bilateral lower extremity edema with diffuse bilateral skin crusting involving the lower extremities. There is advanced bilateral hemosiderosis present, callus formation involving the heels and toes bilaterally and the left foot shows Charcot foot deformity with a fallen arch and lateral, external rotation of the ankle. There are, however, no open wounds involving the feet.. The right lower extremity shows a wound involving the posterior distal calf, measuring 3.5 cm x 1.0 cm. With a depth of 0.2 cm. The wound base is clean, with granulation tissue present Wound edges are attached, and there is no erythema, maceration, or ischemic change noted Drainage is serosanguineous and minimal. CLINICAL IMPRESSION: Bilateral lower extremity venous stasis disease, rule out peripheral vascular disease. Patient also has lower back pain, which may account for his falling and inability to ambulate and lower back and lower extremity pain. . This is termed neurogenic claudication, and needs to be differentiated from arterial occlusive disease. TREATMENT AT THIS TIME: Leg should be washed with mild soap and water, preferably Lanre's Baby Shampoo, padded dry, moisturizer applied, and bilateral TubiGrip stockings should be placed. In terms of the right calf wound, standard foam dressing applied to the wound and changed every other day. A CT angiogram evaluating distal aorta and bilateral runoff should be ordered. This will allow for a definitive arterial study to further diagnose his symptoms. If this shows no significant occlusive disease, compression stockings are the treatment along with a lumbar spine evaluation. JEANNIE
[2020-09-22 14:00] VITALS: BP 127/81
[2020-09-22] MEDS: RIVAROXABAN 20 MG TAB (XARELTO) PO SCH (17:30)
--- NOTE | 2020-09-22 18:30 | IPNPDOC ---
Text Note Date of Service The patient was seen on 09/22/20. NOTE SUBJECTIVE: Patient continues to complain about back pain. PHYSICAL EXAM: VITAL SIGNS: see below GENERAL APPEARANCE: robust, older male, lying in bed, NAD but c/o back pain HEENT: Atraumatic, normocephalic. Eyes are anicteric. Mucous membranes are pink and moist CARDIOVASCULAR: NSR regular rhythm, no noted murmurs LUNGS: CTAB ABDOMEN: Normoactive sounds, soft, nondistended. No rebound tenderness or guarding. EXTREMITIES: Thickening and scaling of BLE, sluggish capillary refill bilaterally to lower extremities NEUROLOGICAL: Awake, speech is clear, AOx3 BLE weakness with inability to resist against gravity LABORATORY STUDIES: Reviewed, please see below. RADIOLOGY STUDIES: No recent ASSESSMENT: Mr. Palacio is an 80 year old male with PMH diet controlled DM, chronic back pain on opiate therapy, HTN, anxiety, Afib on Xarelto is brought into the ED by daughter, Gretta, for persistent LE weakness at home and unable to care for self. He remains inpatient pending determination of status for ARU versus [facility] care. PLAN: # BLE weakness: Patient has acute on chronic weakness with several recent hospitalization and is no longer to care for himself at home and family is unable to provide adequate care at home at this time. He will be transitioned to ARU pending insurance approval. Meds: None Appreciate PT/OT input Appreciate NCM involvement # DM2: Patient remains diet controlled # Chronic back pain: Will not escalate pain medications at this time as he is on fentanyl patch and percocet Q8H. He does have breakthrough morphine PRN. # HTN: BP better controlled after resuming home medications # A fib: Continue Xarelto DISPO: Med/Surg pending ALC v. ARU eval with insurance DIET: consistent carbohydrate DVT PROPHY: Xarelto CONSULTS: PT/OT/NCM/SW DISCHARGE: Likely to ARU pending insurance assessment VSShilpa, I+O VS, Shilpa, I+O Laboratory Tests 09/22/20 08:22 Vital Signs Date Time Temp Pulse Resp B/P (MAP) Pulse Ox O2 Delivery O2 Flow Rate FiO2 09/22/20 14:57 18 Room Air 09/22/20 14:00 97.9 91 127/81 (96) 94 I&O- Last 24 Hours up to 6 AM 09/22/20 06:00 Intake Total 660 ml Balance 660 ml GEOVANNI JORDAN MD MPH Sep 22, 2020 17:12
[2020-09-22] MEDS ORDERED: FENTANYL REMOVAL DOCUMENTATION MISC XX SCH ×2 (20:00)
[2020-09-22] MEDS ORDERED: fentaNYL 25 MCG/HR PATCH TOP SCH (20:00)
[2020-09-22] MEDS: fentaNYL 12 MCG/HR PATCH TOP SCH (21:28)
[2020-09-22] MEDS: fentaNYL 25 MCG/HR PATCH TOP SCH (21:28)
[2020-09-22] MEDS: cloNIDine 0.1MG TABLET PO SCH (21:29)
[2020-09-22] MEDS: clonazePAM 1 MG TAB PO SCH (21:30)
[2020-09-22 22:00] VITALS: BP 134/88
[2020-09-22] MEDS: FENTANYL REMOVAL DOCUMENTATION MISC XX SCH (22:00)
[2020-09-23] MEDS: MORPHINE 2 MG/ML 1ML VIAL (J2270) IV PRN ×2 (01:23→19:00)
[2020-09-23] MEDS: PERCOCET 5MG/325MG TAB PO SCH ×3 (05:48→21:19)
[2020-09-23 05:57] VITALS: BP 124/73
[2020-09-23] MEDS: TAMSULOSIN 0.4 MG CAP PO SCH (09:10)
[2020-09-23] MEDS: SERTRALINE HCL 50 MG TAB PO SCH (09:11)
[2020-09-23] MEDS: PREGABALIN 100 MG CAP (LYRICA) PO SCH ×3 (09:11→21:18)
[2020-09-23] MEDS: SPIRONOLACTONE 25 MG TAB PO SCH (09:11)
[2020-09-23] MEDS: atenoloL 50 MG TAB PO SCH (10:15)
[2020-09-23] MEDS: clonazePAM 0.5 MG TAB PO PRN (10:40)
[2020-09-23 14:00] VITALS: BP 115/77
[2020-09-23] MEDS: RIVAROXABAN 20 MG TAB (XARELTO) PO SCH (17:07)
--- NOTE | 2020-09-23 18:04 | IPNPDOC ---
Text Note Date of Service The patient was seen on 09/23/20. NOTE Hospitalist Progress Note Subjective: Reclined in the bed. He is in no acute distress at this time, his back does continue to bother him, but it seems to be manageable at this time. He does not have any acute complaints at this time. The remainder of his review of systems is negative. Objective: General: Awake, alert, oriented 3. Not in any acute distress. HEENT: Head normocephalic, atraumatic, sclera are nonicteric. Hearing is grossly intact to conversation. Respiratory: Clear to auscultation bilaterally with no wheezes, rales, or rhonchi. Cardiovascular: Regular rate and rhythm, with no rubs, gallops, or murmur. Abdomen: Soft, nontender, nondistended, no hepatosplenomegaly appreciated. Bowel sounds present. Extremities: 2+ pulses in the radial and dorsalis pedis bilaterally. No evidence of clubbing or cyanosis. Assessment: Bilateral lower extremity weakness -Unable to provide adequate care for himself at home at this time -Disposition planning is underway, may require short-term inpatient rehabilitation. Diabetes mellitus type 2 -Diet controlled Chronic back pain -Continue current regimen, no escalation indicated at this time. Hypertension -Blood pressure is actually a little bit soft this morning, we will hold his blood pressure medicines at this time. I will also reduce his dose of atenolol from 50 mg daily to 25 mg daily, and to discontinue hydrochlorothiazide at this time. Continue clonidine and spironolactone. Atrial fibrillation DVT prophylaxis -Continue Xarelto VS,Fishbone, I+O VS, Fishbone, I+O Vital Signs Date Time Temp Pulse Resp B/P (MAP) Pulse Ox O2 Delivery O2 Flow Rate FiO2 09/23/20 06:18 15 09/23/20 05:57 97.6 88 124/73 (90) 95 Room Air I&O- Last 24 Hours up to 6 AM 09/23/20 06:00 Intake Total 1420 ml Balance 1420 ml GYPSY ESCALANTE DO Sep 23, 2020 13:32
[2020-09-23] MEDS: clonazePAM 1 MG TAB PO SCH (21:18)
[2020-09-23] MEDS: cloNIDine 0.1MG TABLET PO SCH (21:19)
[2020-09-23 22:00] VITALS: BP 144/81
[2020-09-23] MEDS ORDERED: FENTANYL REMOVAL DOCUMENTATION MISC XX SCH (23:12)
[2020-09-24] MEDS ORDERED: KETOROLAC 30 MG/ML 1ML VIAL IV ONE (04:00)
[2020-09-24] MEDS: PERCOCET 5MG/325MG TAB PO SCH ×3 (05:57→22:02)
[2020-09-24 06:00] VITALS: BP 129/64
[2020-09-24] MEDS: PREGABALIN 100 MG CAP (LYRICA) PO SCH ×3 (09:03→22:02)
[2020-09-24] MEDS: TAMSULOSIN 0.4 MG CAP PO SCH (09:04)
[2020-09-24] MEDS: atenoloL 25 MG TAB PO SCH (09:04)
[2020-09-24] MEDS: SPIRONOLACTONE 25 MG TAB PO SCH (09:04)
[2020-09-24] MEDS: SERTRALINE HCL 50 MG TAB PO SCH (09:04)
[2020-09-24 09:32] LABS: HEMATOCRIT 43.6 % (42.0-52.0); HEMOGLOBIN 14.3 g/dl (13.5-17.5); MEAN CORPUSCULAR HEMOGLOBIN 29.1 pg (27.0-33.0); MEAN CORPUSCULAR HGB CONC 32.8 g/dl (32.0-36.5); MEAN CORPUSCULAR VOLUME 88.8 fl (80.0-96.0); PLATELET COUNT, AUTOMATED 204 10^3/uL (150-450); RED BLOOD COUNT 4.91 10^6/uL (4.30-6.10); WHITE BLOOD COUNT 5.1 10^3/uL (4.0-10.0)
[2020-09-24 09:53] LABS: CALCIUM LEVEL 9.4 MG/DL (8.8-10.2); CREATININE FOR GFR 1.24 MG/DL (0.70-1.30); GLOMERULAR FILTRATION RATE 59.6 (>35); POTASSIUM SERUM 3.5 MEQ/L (3.5-5.1)
--- NOTE | 2020-09-24 11:25 | IPNPDOC ---
Text Note Date of Service The patient was seen on 09/24/20. NOTE Hospitalist Progress Note Subjective: Continues to have pain, but seems to be well controlled on his current regimen. His primary complaint today is that he is unable to urinate. Bladder scan performed by nursing revealed greater than 1 L. He had been started on Flomax a few days ago. I will put in an order to bladder scan and straight cath PRN, in the hopes that the Flomax will begin to kick in over the next few days. He continues to work with physical therapy, but suffers from significant bilateral lower extremity weakness. Evaluation for admission to the inpatient rehabilitation unit is underway. Otherwise, he does not have any specific complaints at this time. Objective: General: Awake, alert, oriented 3. Not in any acute distress. HEENT: Head normocephalic, atraumatic, sclera are nonicteric. Hearing is grossly intact to conversation. Respiratory: Clear to auscultation bilaterally with no wheezes, rales, or rhonchi. Cardiovascular: Controlled rate with irregular rhythm, with no rubs, gallops, or murmur. Abdomen: Soft, nontender, nondistended, no hepatosplenomegaly appreciated. Bowel sounds present. Extremities: 2+ pulses in the radial and dorsalis pedis bilaterally. Significant bilateral lower extremity venous stasis dermatitis Assessment: Bilateral lower extremity weakness -Unable to provide adequate care for himself at home at this time -Disposition planning is underway, may require short-term inpatient rehabilitation. Diabetes mellitus type 2 -Diet controlled Chronic back pain -Continue current regimen, no escalation indicated at this time. Hypertension -Blood pressure is improved today with the discontinuation of hydrochloroth iazide and the reduction in the dose of atenolol. Continue clonidine and spironolactone. No changes in his antihypertensive were made today. Urinary retention -Flomax has been started few days ago, however sometimes it takes up to 2 weeks before maximum effect is achieved -Bladder scan and straight cath on an as-needed basis Atrial fibrillation DVT prophylaxis -Continue Xarelto VS,Fishbone, I+O VS, Fishbone, I+O Laboratory Tests 09/24/20 09:18 Vital Signs Date Time Temp Pulse Resp B/P (MAP) Pulse Ox O2 Delivery O2 Flow Rate FiO2 09/24/20 09:04 102 129/64 7/24/21 06:35 18 09/24/20 06:00 97.3 91 Room Air I&O- Last 24 Hours up to 6 AM 09/24/20 06:00 Intake Total 1510 ml Balance 1510 ml GYPSY ESCALANTE DO Sep 24, 2020 11:25
[2020-09-24] MEDS: clonazePAM 0.5 MG TAB PO PRN (13:27)
[2020-09-24 14:00] VITALS: BP 115/68
[2020-09-24] MEDS: RIVAROXABAN 20 MG TAB (XARELTO) PO SCH (17:44)
[2020-09-24 21:47] VITALS: BP 132/72
[2020-09-24] MEDS: clonazePAM 1 MG TAB PO SCH (22:02)
[2020-09-24] MEDS: cloNIDine 0.1MG TABLET PO SCH (22:04)
[2020-09-25] MEDS: MORPHINE 2 MG/ML 1ML VIAL (J2270) IV PRN ×2 (02:51→23:19)
[2020-09-25 04:00] LABS: AMORPHOUS SEDIMENT SMALL (NEGATIVE); APPEARANCE, URINE CLOUDY (CLEAR); BACTERIA, URINE AUTO 1+ (NEGATIVE); BILIRUBIN, URINE AUTO NEGATIVE (NEGATIVE); BLOOD, URINE BLOOD 3+ (NEGATIVE); COLOR, URINE AMBER (YELLOW); GLUCOSE, URINE (UA) AUTO NEGATIVE (NEGATIVE); KETONE, URINE AUTO NEGATIVE (NEGATIVE); LEUKOCYTE ESTERASE, URINE AUTO TRACE (NEGATIVE); MUCUS, URINE SMALL (NEGATIVE); NITRITE, URINE AUTO NEGATIVE (NEGATIVE); PROTEIN, URINE AUTO 1+ mg/dL (NEGATIVE); RBC, URINE AUTO TNTC /HPF (0-3); SPECIFIC GRAVITY URINE AUTO 1.015 (1.002-1.035); SQUAMOUS EPITHELIAL CELL UR AU 1 /HPF (0-6); UROBILINOGEN, URINE AUTO 0.2 mg/dL (0.0-2.0); WBC, URINE AUTO 40 /HPF (0-3)
[2020-09-25] MEDS: PERCOCET 5MG/325MG TAB PO SCH ×3 (05:25→21:24)
[2020-09-25 06:00] VITALS: BP 121/65
[2020-09-25] MEDS: PREGABALIN 100 MG CAP (LYRICA) PO SCH ×3 (09:44→21:23)
[2020-09-25] MEDS: atenoloL 25 MG TAB PO SCH (09:44)
[2020-09-25] MEDS: TAMSULOSIN 0.4 MG CAP PO SCH (09:44)
[2020-09-25] MEDS: SPIRONOLACTONE 25 MG TAB PO SCH (09:44)
[2020-09-25] MEDS: SERTRALINE HCL 50 MG TAB PO SCH (09:44)
[2020-09-25] MEDS: DOCUSATE SODIUM 100MG CAPSULE PO SCH ×2 (13:12→21:23)
[2020-09-25] MEDS: clonazePAM 0.5 MG TAB PO PRN (13:12)
[2020-09-25 14:00] VITALS: BP_SYST 103; BP_SYST 121; BP_DIAS 65; BP_DIAS 67
--- NOTE | 2020-09-25 14:07 | IPNPDOC ---
Subjective Date Seen The patient was seen on 09/25/20. Subjective Chief Complaint/HPI Mr. Palacio is an 80 year old male with diet controlled CM, chronic back pain, and atrial fibrillation on Xarelto who is here with bilateral lower extremity weakness. This morning, he denies any chest pain or dyspnea. Objective Physical Examination General Exam: Positive: Alert, Cooperative Eye Exam: Negative: Sclera icteric ENT Exam: Positive: Atraumatic Neck Exam: Positive: Supple Chest Exam: Positive: Clear to auscultation; Negative: Rales, Rhonchi, Wheezing Heart Exam: Positive: Rate Normal, Regular Rhythm Abdomen Exam: Positive: Normal bowel sounds, Soft; Negative: Tenderness Extremity Exam: Positive: Edema (bilateral pitting) Neuro Exam: Positive: Normal Speech Psych Exam: Positive: Mental status NL, Mood NL Assessment /Plan Assessment Mr. Palacio is an 80 year old male with diet controlled CM, chronic back pain, and atrial fibrillation on Xarelto who is here with bilateral lower extremity weakness. Patient is currently pending insurance approval for ARU. Otherwise, patient continues on tamsulosin for acute urinary retention. Plan/VTE VTE Prophylaxis Ordered?: Yes Plan 1. Bilateral lower extremity weakness -Patient unable to provide adequate care for self at home -Pending ARU insurance approval 2. Diabetes mellitus type 2 -Diet controlled 3. Chronic low back pain -Continue with current pain regimen 4. Hypertension -Blood pressure controlled -Continue with atenolol, clonidine, spironolactone, and tamsulosin 5. Atrial fibrillation -Continue atenolol -Continue Xarelto 6. Acute urinary retention -continue with tamsulosin 7. DVT ppx -Xarelto Disposition: Pending insurance approval for [facility]O Vital Signs Date Time Temp Pulse Resp B/P (MAP) Pulse Ox O2 Delivery O2 Flow Rate FiO2 09/25/20 09:44 86 121/65 09/25/20 06:03 18 09/25/20 06:00 97.6 92 Room Air I&O- Last 24 Hours up to 6 AM 09/25/20 06:00 Intake Total 1440 ml Output Total 2800 ml Balance -1360 ml Laboratory Data 24H LABS Laboratory Tests 2 09/25/20 03:36: Urine Color ANDRZEJ, Urine Appearance CLOUDYH, Urine pH 5.0, Urine Specific [place] 1.015, Urine Protein 1+H, Urine Glucose (Auto)(UA) NEGATIVE, Urine Ketones (Auto) NEGATIVE, Urine Blood 3+H, Urine Nitrite NEGATIVE, Urine Bilirubin NEGATIVE, Urine Urobilinogen 0.2, Urine Leukocyte Esterase (Auto) TRACEH, Urine WBC (Auto) 40H, Urine RBC (Auto) TNTCH, Urine Hyaline Casts (Auto) 0, Urine Bacteria (Auto) 1+H, Urine Squamous Epithelial Cells 1, Urine Amorphous Sediment (Auto) SMALLH, Urine Mucus (Auto) SMALL, Urine Sperm (Auto) ILDA MIRANDA DO Sep 25, 2020 14:07
[2020-09-25] MEDS: RIVAROXABAN 20 MG TAB (XARELTO) PO SCH (17:05)
[2020-09-25] MEDS: clonazePAM 1 MG TAB PO SCH (21:23)
[2020-09-25] MEDS: fentaNYL 12 MCG/HR PATCH TOP SCH (21:25)
[2020-09-25] MEDS: fentaNYL 25 MCG/HR PATCH TOP SCH (21:26)
[2020-09-25] MEDS: cloNIDine 0.1MG TABLET PO SCH (21:27)
[2020-09-25 21:52] VITALS: BP 139/80
[2020-09-25] MEDS: FENTANYL REMOVAL DOCUMENTATION MISC XX SCH (22:40)
[2020-09-26] MEDS: MORPHINE 2 MG/ML 1ML VIAL (J2270) IV PRN ×2 (03:26→23:12)
[2020-09-26 06:00] VITALS: BP 111/90
[2020-09-26] MEDS: PERCOCET 5MG/325MG TAB PO SCH ×3 (06:16→20:59)
[2020-09-26 07:22] LABS: HEMATOCRIT 43.3 % (42.0-52.0); HEMOGLOBIN 14.1 g/dl (13.5-17.5); MEAN CORPUSCULAR HGB CONC 32.6 g/dl (32.0-36.5); MEAN CORPUSCULAR VOLUME 88.9 fl (80.0-96.0); PLATELET COUNT, AUTOMATED 171 10^3/uL (150-450); RED BLOOD COUNT 4.87 10^6/uL (4.30-6.10)
[2020-09-26 07:58] LABS: BLOOD UREA NITROGEN 16 MG/DL (7-18); CALCIUM LEVEL 8.5 MG/DL (8.8-10.2); CARBON DIOXIDE LEVEL 35 MEQ/L (21-32); CHLORIDE LEVEL 101 MEQ/L (98-107); CREATININE FOR GFR 0.72 MG/DL (0.70-1.30); GLOMERULAR FILTRATION RATE > 60.0 (>35); GLUCOSE, FASTING 91 MG/DL (70-100); POTASSIUM SERUM 3.6 MEQ/L (3.5-5.1); SODIUM LEVEL 140 MEQ/L (136-145)
[2020-09-26] MEDS: PREGABALIN 100 MG CAP (LYRICA) PO SCH ×3 (08:17→20:58)
[2020-09-26] MEDS: DOCUSATE SODIUM 100MG CAPSULE PO SCH ×2 (08:17→20:58)
[2020-09-26] MEDS: atenoloL 25 MG TAB PO SCH (08:17)
[2020-09-26] MEDS: TAMSULOSIN 0.4 MG CAP PO SCH (08:17)
[2020-09-26] MEDS: SPIRONOLACTONE 25 MG TAB PO SCH (08:17)
[2020-09-26] MEDS: SERTRALINE HCL 50 MG TAB PO SCH (08:17)
[2020-09-26] MEDS: clonazePAM 0.5 MG TAB PO PRN (13:26)
[2020-09-26 14:00] VITALS: BP 125/72
--- NOTE | 2020-09-26 14:29 | IPNPDOC ---
Subjective Date Seen The patient was seen on 09/26/20. Subjective Chief Complaint/HPI Mr. Palacio is an 80 year old male with diet controlled CM, chronic back pain, and atrial fibrillation on Xarelto who is here with deconditioning. Yesterday, he had acute urinary retention. A Holman was placed and patient continues on tamsulosin. This morning, he denies chest pain or dyspnea. Still pending ARU insurance approval. Objective Physical Examination General Exam: Positive: Alert, Cooperative Eye Exam: Negative: Sclera icteric ENT Exam: Positive: Atraumatic Neck Exam: Positive: Supple Chest Exam: Positive: Clear to auscultation; Negative: Rales, Rhonchi, Wheezing Heart Exam: Positive: Rate Normal, Regular Rhythm Abdomen Exam: Positive: Normal bowel sounds, Soft; Negative: Tenderness Extremity Exam: Positive: Edema (bilateral pitting) Neuro Exam: Positive: Normal Speech Psych Exam: Positive: Mental status NL, Mood NL Assessment /Plan Assessment Mr. Palacio is an 80 year old male with diet controlled CM, chronic back pain, and atrial fibrillation on Xarelto who is here with bilateral lower extremity weakness. Patient is currently pending insurance approval for ARU. Otherwise, patient continues on tamsulosin for acute urinary retention. Plan/VTE VTE Prophylaxis Ordered?: Yes Plan 1. Bilateral lower extremity weakness -Patient unable to provide adequate care for self at home -Pending ARU insurance approval 2. Diabetes mellitus type 2 -Diet controlled 3. Chronic low back pain -Continue with current pain regimen 4. Hypertension -Blood pressure controlled -Continue with atenolol, clonidine, spironolactone, and tamsulosin 5. Atrial fibrillation -Continue atenolol -Continue Xarelto 6. Acute urinary retention -Holman catheter placed -Continue with tamsulosin 7. DVT ppx -Xarelto Disposition: Pending insurance approval for ARU VS, I&O, 24H, Fishbone Vital Signs/I&O Vital Signs Date Time Temp Pulse Resp B/P (MAP) Pulse Ox O2 Delivery O2 Flow Rate FiO2 09/26/20 13:27 18 09/26/20 08:17 69 120/88 09/26/20 06:00 98.4 92 Room Air 09/25/20 21:52 I&O- Last 24 Hours up to 6 AM 09/26/20 06:00 Intake Total 1470 ml Output Total 2600 ml Balance -1130 ml Laboratory Data 24H LABS Laboratory Tests 2 09/26/20 07:11: Nucleated Red Blood Cells % (auto) 0.0, Anion Gap 4L, Glomerular Filtration Rate > 60.0, Calcium Level 8.5L CBC/BMP Laboratory Tests 09/26/20 07:11 ILDA MIRANDA DO Sep 26, 2020 14:29
[2020-09-26] MEDS: RIVAROXABAN 20 MG TAB (XARELTO) PO SCH (17:02)
[2020-09-26] MEDS: cloNIDine 0.1MG TABLET PO SCH (20:58)
[2020-09-26] MEDS: clonazePAM 1 MG TAB PO SCH (20:58)
[2020-09-26] MEDS: VANICREAM MOISTURIZING SKIN CREAM 113GM TUBE TOP SCH (21:00)
[2020-09-26 22:00] VITALS: BP 136/78
[2020-09-27] MEDS: MORPHINE 2 MG/ML 1ML VIAL (J2270) IV PRN (02:33)
[2020-09-27 06:00] VITALS: BP 119/79
[2020-09-27] MEDS: PERCOCET 5MG/325MG TAB PO SCH ×3 (06:04→22:00)
[2020-09-27] MEDS: PREGABALIN 100 MG CAP (LYRICA) PO SCH ×3 (08:52→21:59)
[2020-09-27] MEDS: DOCUSATE SODIUM 100MG CAPSULE PO SCH ×2 (08:52→21:59)
[2020-09-27] MEDS: SPIRONOLACTONE 25 MG TAB PO SCH (08:52)
[2020-09-27] MEDS: SERTRALINE HCL 50 MG TAB PO SCH (08:52)
[2020-09-27] MEDS: TAMSULOSIN 0.4 MG CAP PO SCH (08:52)
[2020-09-27] MEDS: atenoloL 25 MG TAB PO SCH (08:53)
[2020-09-27] MEDS: VANICREAM MOISTURIZING SKIN CREAM 113GM TUBE TOP SCH ×2 (08:53→22:03)
[2020-09-27 14:00] VITALS: BP 135/81
--- NOTE | 2020-09-27 16:52 | IPNPDOC ---
Subjective Date Seen The patient was seen on 09/27/20. Subjective Chief Complaint/HPI Mr. Palacio is an 80 year old male with diet controlled CM, chronic back pain, and atrial fibrillation on Xarelto who is here with deconditioning. This morning, patient denies any chest pain or dyspnea. He was declined from ARU. Patient worked with physical therapy. Patient is not safe for home. Patient will need subacute rehab. Patient will be made ALC today. Objective Physical Examination General Exam: Positive: Alert, Cooperative Eye Exam: Negative: Sclera icteric ENT Exam: Positive: Atraumatic Neck Exam: Positive: Supple Chest Exam: Positive: Clear to auscultation; Negative: Rales, Rhonchi, Wheezing Heart Exam: Positive: Rate Normal, Regular Rhythm Abdomen Exam: Positive: Normal bowel sounds, Soft; Negative: Tenderness Extremity Exam: Positive: Edema (bilateral pitting) Neuro Exam: Positive: Normal Speech Psych Exam: Positive: Mental status NL, Mood NL Assessment /Plan Assessment Mr. Palacio is an 80 year old male with diet controlled CM, chronic back pain, and atrial fibrillation on Xarelto who is here with bilateral lower extremity weakness. Insurance declined ARU. Patient worked with PT, and he is not safe for home. Patient will need subacute rehab. Patient will be made ALC. Otherwise, patient continues on tamsulosin for acute urinary retention. Plan/VTE VTE Prophylaxis Ordered?: Yes Plan 1. Bilateral lower extremity weakness -Patient unable to provide adequate care for self at home -Insurance declined ARU. Patient not safe for home. He will need subacute rehab. He will be made ALC today. 2. Diabetes mellitus type 2 -Diet controlled 3. Chronic low back pain -Continue with current pain regimen 4. Hypertension -Blood pressure controlled -Continue with atenolol, clonidine, spironolactone, and tamsulosin 5. Atrial fibrillation -Continue atenolol -Continue Xarelto 6. Acute urinary retention -Holman catheter placed -Continue with tamsulosin 7. DVT ppx -Xarelto Disposition: Insurance declined ARU. Patient not safe for home. He will need subacute rehab. He will be made ALC today. VS, I&O, 24H, Fishbone Vital Signs/I&O Vital Signs Date Time Temp Pulse Resp B/P (MAP) Pulse Ox O2 Delivery O2 Flow Rate FiO2 7/27/21 14:00 97.7 70 18 135/81 (99) 93 Room Air 09/25/20 21:52 I&O- Last 24 Hours up to 6 AM 09/27/20 06:00 Intake Total 1620 ml Output Total 1600 ml Balance 20 ml ILDA MIRANDA DO Sep 27, 2020 16:52
[2020-09-27] MEDS: RIVAROXABAN 20 MG TAB (XARELTO) PO SCH (17:00)
[2020-09-27] MEDS: MIRALAX *UNIT DOSE* 17GM PACKET PO PRN (17:00)
[2020-09-27] MEDS: clonazePAM 1 MG TAB PO SCH (21:59)
[2020-09-27 22:00] VITALS: BP 145/84
[2020-09-27] MEDS: cloNIDine 0.1MG TABLET PO SCH (22:03)
[2020-09-28] MEDS: MORPHINE 2 MG/ML 1ML VIAL (J2270) IV PRN ×2 (02:35→23:40)
[2020-09-28 06:00] VITALS: BP 149/83
[2020-09-28] MEDS: PERCOCET 5MG/325MG TAB PO SCH ×3 (06:20→21:12)
[2020-09-28 06:21] LABS: HEMATOCRIT 42.8 % (42.0-52.0); HEMOGLOBIN 13.8 g/dl (13.5-17.5); MEAN CORPUSCULAR HEMOGLOBIN 28.9 pg (27.0-33.0); MEAN CORPUSCULAR HGB CONC 32.2 g/dl (32.0-36.5); MEAN CORPUSCULAR VOLUME 89.5 fl (80.0-96.0); PLATELET COUNT, AUTOMATED 173 10^3/uL (150-450); RED BLOOD COUNT 4.78 10^6/uL (4.30-6.10); WHITE BLOOD COUNT 5.4 10^3/uL (4.0-10.0)
[2020-09-28 06:45] LABS: BLOOD UREA NITROGEN 15 MG/DL (7-18); CALCIUM LEVEL 8.5 MG/DL (8.8-10.2); CARBON DIOXIDE LEVEL 34 MEQ/L (21-32); CHLORIDE LEVEL 102 MEQ/L (98-107); CREATININE FOR GFR 0.72 MG/DL (0.70-1.30); GLOMERULAR FILTRATION RATE > 60.0 (>35); GLUCOSE, FASTING 89 MG/DL (70-100); SODIUM LEVEL 139 MEQ/L (136-145)
[2020-09-28] MEDS: DOCUSATE SODIUM 100MG CAPSULE PO SCH ×2 (09:01→20:12)
[2020-09-28] MEDS: PREGABALIN 100 MG CAP (LYRICA) PO SCH ×3 (09:01→20:14)
[2020-09-28] MEDS: clonazePAM 0.5 MG TAB PO PRN (09:01)
[2020-09-28] MEDS: TAMSULOSIN 0.4 MG CAP PO SCH (09:01)
[2020-09-28] MEDS: MIRALAX *UNIT DOSE* 17GM PACKET PO PRN (09:01)
[2020-09-28] MEDS: SPIRONOLACTONE 25 MG TAB PO SCH (09:01)
[2020-09-28] MEDS: SERTRALINE HCL 50 MG TAB PO SCH (09:01)
[2020-09-28] MEDS: atenoloL 25 MG TAB PO SCH (09:03)
[2020-09-28] MEDS: VANICREAM MOISTURIZING SKIN CREAM 113GM TUBE TOP SCH ×2 (09:04→20:14)
[2020-09-28] MEDS: ONDANSETRON 4 MG TAB PO PRN (13:23)
[2020-09-28 14:00] VITALS: BP 109/67
[2020-09-28] MEDS: RIVAROXABAN 20 MG TAB (XARELTO) PO SCH (17:24)
[2020-09-28] MEDS: fentaNYL 12 MCG/HR PATCH TOP SCH (20:11)
[2020-09-28] MEDS: fentaNYL 25 MCG/HR PATCH TOP SCH (20:11)
[2020-09-28] MEDS: clonazePAM 1 MG TAB PO SCH (20:12)
[2020-09-28] MEDS: cloNIDine 0.1MG TABLET PO SCH (20:14)
[2020-09-28] MEDS: FENTANYL REMOVAL DOCUMENTATION MISC XX SCH (20:23)
[2020-09-28 22:00] VITALS: BP 152/91
[2020-09-29] MEDS: MORPHINE 2 MG/ML 1ML VIAL (J2270) IV PRN ×2 (02:59→17:01)
[2020-09-29 05:16] VITALS: BP 129/76
[2020-09-29] MEDS: PERCOCET 5MG/325MG TAB PO SCH ×3 (05:17→21:15)
[2020-09-29 05:55] LABS: HEMATOCRIT 43.1 % (42.0-52.0); HEMOGLOBIN 13.7 g/dl (13.5-17.5); MEAN CORPUSCULAR HGB CONC 31.8 g/dl (32.0-36.5); MEAN CORPUSCULAR VOLUME 91.1 fl (80.0-96.0); PLATELET COUNT, AUTOMATED 161 10^3/uL (150-450); RED BLOOD COUNT 4.73 10^6/uL (4.30-6.10); WHITE BLOOD COUNT 5.2 10^3/uL (4.0-10.0)
[2020-09-29 06:20] LABS: BLOOD UREA NITROGEN 14 MG/DL (7-18); CALCIUM LEVEL 8.5 MG/DL (8.8-10.2); CARBON DIOXIDE LEVEL 33 MEQ/L (21-32); CHLORIDE LEVEL 104 MEQ/L (98-107); CREATININE FOR GFR 0.76 MG/DL (0.70-1.30); GLOMERULAR FILTRATION RATE > 60.0 (>35); GLUCOSE, FASTING 84 MG/DL (70-100); POTASSIUM SERUM 4.2 MEQ/L (3.5-5.1); SODIUM LEVEL 140 MEQ/L (136-145)
[2020-09-29] MEDS: TAMSULOSIN 0.4 MG CAP PO SCH (08:27)
[2020-09-29] MEDS: atenoloL 25 MG TAB PO SCH (08:27)
[2020-09-29] MEDS: DOCUSATE SODIUM 100MG CAPSULE PO SCH ×2 (08:27→21:15)
[2020-09-29] MEDS: SPIRONOLACTONE 25 MG TAB PO SCH (08:27)
[2020-09-29] MEDS: SERTRALINE HCL 50 MG TAB PO SCH (08:27)
[2020-09-29] MEDS: PREGABALIN 100 MG CAP (LYRICA) PO SCH ×3 (08:28→21:15)
[2020-09-29] MEDS: VANICREAM MOISTURIZING SKIN CREAM 113GM TUBE TOP SCH ×2 (08:28→21:18)
[2020-09-29] MEDS: MIRALAX *UNIT DOSE* 17GM PACKET PO PRN (11:46)
--- NOTE | 2020-09-29 14:26 | CR ---
ADVANCED WOUND CARE CONSULTATION DATE: 09/29/2020 CONSULT REQUESTED BY: Dr. Jaquez. REASON FOR CONSULTATION: Right and left lower extremity wounds. Wound Care Telemedicine provides a visual assessment of a wound without the benefit of physical examination. It can assist with establishing a diagnosis and etiology. This allows for an initial treatment plan as wounds often change and may be necessary to modify the original care. Recommendation is periodic wound reassessment to monitor treatment. Failure to comply may result in nonhealing of wound, possible complications and/or poor outcome. Recommendations given will serve as treatment options. As I will not be following this patient this care plan will require the attending physician to give and sign the orders. Upon discharge outpatient follow up can be arranged at our wound care center. 80-year-old male admitted for generalized weakness and right lower extremity edema and wounds involving the calf region of right and left lower extremities. There was significant scaling and dry skin involving the legs and edema which appears to be improving. This was initially addressed with Tubigrip stockings and foam dressings for the wounds involving both the right and left the calves. When seen today there has been significant improvement. On the posterior aspect of the right calf there is a wound measuring 0.6 cm x 1.7 cm and just distal to this a second wound measuring 0.3 cm x 0.5 cm. On the left calf region there is a wound measuring 0.8 cm x 1.6 cm. All wound bases appear relatively clean with granulation tissue present. The drainage for all wounds is minimal, serosanguineous and there are no ischemic changes involving the rusty-wound and/or wound edges. Skin quality involving the entire right and left lower extremities shows diffuse dry scaling which represents necrosis of the superficial keratin layer of epidermis. Treatment for this is washing the legs with Lanre's Baby Shampoo which contains surfactant and utilizing a washcloth for gentle abrasion removal of the scales. This should be followed by rinsing with saline and then applying a generous amount of moisturizer. Wounds should be dressed with foam dressings and Tubigrip stockings should be applied bilaterally to the legs. At this point right and left arterial ultrasounds should be ordered to evaluate the possibility of peripheral vascular disease as a component and etiology of his wounds. Dressing changes can be performed on every other day basis. The patient indicates that he is has been getting physical therapy and feeling a bit stronger. Oral intake is good. There is no indication for antibiotic therapy MTDD
[2020-09-29] MEDS: RIVAROXABAN 20 MG TAB (XARELTO) PO SCH (16:58)
[2020-09-29] MEDS: cloNIDine 0.1MG TABLET PO SCH (21:17)
[2020-09-29] MEDS: clonazePAM 1 MG TAB PO SCH (21:18)
[2020-09-30] MEDS: PERCOCET 5MG/325MG TAB PO SCH ×2 (05:32→13:30)
[2020-09-30 05:47] LABS: HEMOGLOBIN 14.1 g/dl (13.5-17.5); MEAN CORPUSCULAR HEMOGLOBIN 28.5 pg (27.0-33.0); MEAN CORPUSCULAR HGB CONC 31.3 g/dl (32.0-36.5); MEAN CORPUSCULAR VOLUME 91.1 fl (80.0-96.0); PLATELET COUNT, AUTOMATED 180 10^3/uL (150-450); RED BLOOD COUNT 4.94 10^6/uL (4.30-6.10); WHITE BLOOD COUNT 5.3 10^3/uL (4.0-10.0)
[2020-09-30 05:58] LABS: BLOOD UREA NITROGEN 15 MG/DL (7-18); CALCIUM LEVEL 8.5 MG/DL (8.8-10.2); CARBON DIOXIDE LEVEL 34 MEQ/L (21-32); CHLORIDE LEVEL 103 MEQ/L (98-107); GLOMERULAR FILTRATION RATE > 60.0 (>35); GLUCOSE, FASTING 121 MG/DL (70-100); SODIUM LEVEL 139 MEQ/L (136-145)
[2020-09-30 06:00] VITALS: BP 127/81
[2020-09-30] MEDS: MIRALAX *UNIT DOSE* 17GM PACKET PO PRN (08:58)
[2020-09-30] MEDS: TAMSULOSIN 0.4 MG CAP PO SCH (08:59)
[2020-09-30] MEDS: SPIRONOLACTONE 25 MG TAB PO SCH (08:59)
[2020-09-30] MEDS: SERTRALINE HCL 50 MG TAB PO SCH (08:59)
[2020-09-30] MEDS: DOCUSATE SODIUM 100MG CAPSULE PO SCH (08:59)
[2020-09-30] MEDS: PREGABALIN 100 MG CAP (LYRICA) PO SCH (08:59)
[2020-09-30 09:00] VITALS: BP 128/73
[2020-09-30] MEDS: atenoloL 25 MG TAB PO SCH (09:00)
[2020-09-30] MEDS: VANICREAM MOISTURIZING SKIN CREAM 113GM TUBE TOP SCH (09:00)
[2020-09-30] MEDS ORDERED: DOK1CAP7 PO (10:15)
[2020-09-30] MEDS ORDERED: ACET1TAB55 PO (10:15)
[2020-09-30] MEDS ORDERED: VANI1CRE5 TOP (10:15)
[2020-09-30] MEDS ORDERED: ALDA25TA2 PO (10:15)
--- NOTE | 2020-09-30 11:12 | DS.PDOC ---
Discharge Summary General Date of Admission Sep 20, 2020 at 16:06 Date of Discharge Sep 30, 2020 Specialist/Consultants Involve [facility], Dr. Montero Discharge Summary PROCEDURES PERFORMED DURING STAY: None ADMITTING DIAGNOSES: 1. Acute on chronic bilateral lower extremity weakness 2. Diet controlled diabetes mellitus type 2 3. Chronic low back pain 4. Hypertension 5. Atrial fibrillation on Xarelto 6. BPH DISCHARGE DIAGNOSES: 1. Acute on chronic bilateral lower extremity weakness 2. Diet controlled diabetes mellitus type 2 3. Chronic low back pain 4. Hypertension 5. Atrial fibrillation on Xarelto 6. BPH COMPLICATIONS/CHIEF COMPLAINT: Weakness. HISTORY OF PRESENT ILLNESS: Copied from admitting attending's H&P " Patient is 80 year old male with PMH diet controlled DM, chronic back pain on opiate therapy, HTN, anxiety, Afib on Xarelto is brought into the ED by daughter, Gretta, for persistent LE weakness at home and unable to care for self. Patient has been declining over time and has been mostly bedbound recently from trying to get around with a walker in the past. Additionally, he incontinent of urine, making self care more difficult. He denies any acute physical complaints at this time apart from worsening b/l LE weakness. Patient and family is looking for short term Rehab placement. " HOSPITAL COURSE: Patient did well during hospitalization. Patient did have acute urinary retention and was started on tamsulosin at the beginning of his ho spitalization. He required several straight cath before deciding to insert Holman catheter. Will need to give time for the tamsulosin to work. Patient worked with physical therapy and patient needed rehab. Suspected that his weakness is due to a combination of his chronic spinal stenosis (of which he had lumbar laminectomy in 2006) and deconditioning from recent hospitalization and opioid use. We a pplied patient to our acute rehab unit, but insurance declined. Patient will need subacute rehab. This morning, he denied any chest pain or dyspnea. He feels ready for rehab and was subsequently discharged to [facility] in [place]. DISCHARGE MEDICATIONS: Please see below. ALLERGIES: Please see below. PHYSICAL EXAMINATION ON DISCHARGE: VITAL SIGNS: Please see below. GENERAL: Comfortable, in no apparent distress. HEENT: EOMI, sclera clear. NECK: Supple. RESPIRATORY: Lungs clear to auscultation bilaterally, no rales, wheeze or rhonchi. CARDIOVASCULAR: Regular rate and rhythm. ABDOMEN: Soft, nontender, no guarding or rebound tenderness. Normal bowel sounds. MUSCLE SKELETAL: Bilateral pitting edema PSYCHOLOGICAL: Normal mood and affect LABORATORY DATA: Please see below. IMAGING: Radiologist interpretation CXR No acute pulmonary disease.Mild cardiomegaly. PROGNOSIS: Good ACTIVITY: As tolerated. DIET: Carbohydrate consistent diet DISCHARGE PLAN: [facility] in [place] DISPOSITION: [facility] in [place]. DISCHARGE INSTRUCTIONS: 1. Follow up with PCP in 1 week DISCHARGE CONDITION: Stable. Total time spent on discharge planning, discharge summary, and medication re conciliation: 55 minutes Vital Signs/I&Os Vital Signs Date Time Temp Pulse Resp B/P (MAP) Pulse Ox O2 Delivery O2 Flow Rate FiO2 09/30/20 09:00 112 128/73 09/30/20 06:37 18 09/30/20 06:00 97.9 94 Room Air 09/25/20 21:52 I&O- Last 24 Hours up to 6 AM 09/30/20 06:00 Intake Total 1890 ml Output Total 1825 ml Balance 65 ml Laboratory Data Labs 24H Laboratory Tests 2 09/29/20 14:00: Coronavirus (COVID-19)(PCR) NEGATIVE 09/30/20 05:22: Nucleated Red Blood Cells % (auto) 0.0, Anion Gap 2L, Glomerular Filtration Rate > 60.0, Calcium Level 8.5L CBC/BMP Laboratory Tests 09/30/20 05:22 Discharge Medications Scheduled Atenolol (Atenolol) 50 Mg Tab, 50 MG PO DAILY, (Reported) Clonazepam (Clonazepam) 0.5 Mg Tablet, 1 MG PO QHS, (Reported) Clonidine HCl (Clonidine HCl) 0.1 Mg Tablet, 0.1 MG PO QHS, (Reported) Docusate Sodium (Dok) 100 Mg Capsule, 100 MG PO BID Emollient Base (Vanicream) 453 Gm Cream..g., 0 DOSE TOP BID Fentanyl (Fentanyl) 37.5 Mcg Patch.td72, 37.5 MCG TOP Q3RD, (Reported) CURRENTLY APPLIED TO RIGHT SHOULDER Pregabalin (Pregabalin) 100 Mg Capsule, 100 MG PO TID, (Reported) Rivaroxaban (Xarelto) 20 Mg Tab, 20 MG PO QPM, (Reported) Sertraline HCl (Sertraline HCl) 50 Mg Tablet, 50 MG PO DAILY, (Reported) Spironolactone (Aldactone) 25 Mg Tablet, 25 MG PO QAM Tamsulosin Hcl (Tamsulosin HCl) 0.4 Mg Capsule, 0.4 MG PO DAILY, (Reported) Scheduled PRN Acetaminophen (Acetaminophen) 325 Mg Tablet, 650 MG PO Q6HP PRN for MILD PAIN or TEMP > 101 Clonazepam (Clonazepam) 0.5 Mg Tab, 0.5 MG PO BID PRN for ANXIETY, (Reported) QAM AND QPM Ondansetron HCl (Zofran) 4 Mg Tab, 4 MG PO Q4H PRN for NAUSEA, (Reported) Oxycodone HCl/Acetaminophen (Oxycodon-Acetaminophen 7.5-325) 1 Each Tablet, 1 TAB PO Q8H PRN for PAIN LEVEL 7-10, (Reported) Allergies Coded Allergies: bee venom protein (honey bee) (Verified Allergy, Unknown, 09/11/20) ILDA MIRANDA DO Sep 30, 2020 10:23
[2020-09-30] MEDS: MORPHINE 2 MG/ML 1ML VIAL (J2270) IV PRN (12:36)
[2020-09-30] MEDS: clonazePAM 0.5 MG TAB PO PRN (13:30)
== END 2020-09-30 13:40 | DRG 552 ==
LOC: M ED 10:53 → M ED INP 16:06 → M MS5PR 19:24
PROVIDERS: ADMIT Student in an Organized Health Care Education/Training Program; ATTEND Internal Medicine
DX: M48.061 Spinal stenosis, lumbar region without neurogenic claudication (principal); L97.219 Non-pressure chronic ulcer of right calf with unspecified severity; L97.229 Non-pressure chronic ulcer of left calf with unspecified severity; E11.9 Type 2 diabetes mellitus without complications; Z66 Do not resuscitate; Z79.891 Long term (current) use of opiate analgesic; I10 Essential (primary) hypertension; F41.9 Anxiety disorder, unspecified; I48.91 Unspecified atrial fibrillation; Z79.01 Long term (current) use of anticoagulants; M62.81 Muscle weakness (generalized); Z74.1 Need for assistance with personal care; M54.9 Dorsalgia, unspecified; Z20.822 Contact with and (suspected) exposure to COVID-19; Z79.899 Other long term (current) drug therapy; Z91.030 Bee allergy status; N40.1 Benign prostatic hyperplasia with lower urinary tract symptoms

== ENCOUNTER 2022-04-09 16:16 | Inpatient (IN) | payer MEDICARE ==
[~2022-04-09] VITALS: Ht 182.9 cm; Wt 106.6 kg
[~2022-04-09 16:16] MED LIST changes: +ACET1TAB55 PO; +ALDA25TA2 PO; +DOK1CAP4 PO; +TAMS1CAP17 PO; +VANI1CRE5 TOP
[2022-04-09 17:52] LABS: BASO % 0.2 % (0.0-1.0); EOS % 0.1 % (0.0-3.0); HEMATOCRIT 50.2 % (42.0-52.0); HEMOGLOBIN 16.1 g/dl (13.5-17.5); LYMPH # 0.4 10^3/uL (1.5-5.0); LYMPH % 2.4 % (24.0-44.0); MEAN CORPUSCULAR HGB CONC 32.1 g/dl (32.0-36.5); MEAN CORPUSCULAR VOLUME 87.3 fl (80.0-96.0); MONO # 0.9 10^3/uL (0.0-0.8); MONO % 5.5 % (2.0-8.0); NEUTROPHILS # 14.1 10^3/uL (1.5-8.5); NEUTROPHILS % 90.6 % (36.0-66.0); PLATELET COUNT, AUTOMATED 256 10^3/uL (150-450); RED BLOOD COUNT 5.75 10^6/uL (4.30-6.10); WHITE BLOOD COUNT 15.6 10^3/uL (4.0-10.0)
[2022-04-09 18:27] LABS: RSV AMPLIFICATION NEGATIVE (NEGATIVE)
[2022-04-09 19:06] LABS: BLOOD UREA NITROGEN 19 MG/DL (9-23); CALCIUM LEVEL 9.6 MG/DL (8.3-10.6); CARBON DIOXIDE LEVEL 30 MMOL/L (20-31); CHLORIDE LEVEL 99 MMOL/L (98-107); CREATININE FOR GFR 1.13 MG/DL (0.70-1.30); GLOMERULAR FILTRATION RATE > 60.0 (>35); GLUCOSE, FASTING 140 MG/DL (74-106); POTASSIUM SERUM 3.1 MMOL/L (3.5-5.1); SODIUM LEVEL 139 MMOL/L (136-145)
[2022-04-09] MEDS ORDERED: NS 1,000 ML IV SCH (20:25)
[2022-04-09] MEDS ORDERED: ISOVUE-370 76% 100ML VIAL As Ordered ONE (20:47)
[2022-04-09 21:41] LABS: APPEARANCE, URINE MANUAL CLEAR (CLEAR); COLOR, URINE MANUAL AMBER (YELLOW); PH,URINE MAN 5.5 UNITS (5.0 - 7.0); PROTEIN, URINE MANUAL 2+ mg/dL (NEGATIVE)
[2022-04-09 21:42] LABS: BILIRUBIN, URINE MANUAL NEGATIVE (NEGATIVE); BLOOD URINE MANUAL POSITIVE (NEGATIVE); GLUCOSE, URINE (UA) MANUAL NEGATIVE (NEGATIVE); KETONE, URINE MANUAL NEGATIVE (NEGATIVE); LEUKOCYTE ESTERASE, URINE MAN TRACE (NEGATIVE); NITRITE, URINE MANUAL NEGATIVE (NEGATIVE); UROBILINOGEN, URINE MANUAL NORMAL (NORMAL)
[2022-04-09 21:50] LABS: WBC, URINE 0-1 /hpf (0-3)
[2022-04-09 21:51] LABS: RBC, URINE 0-1 /hpf (0-3); SQUAMOUS EPITHELIAL CELL URINE SMALL AMOUNT /hpf (SMALL AMT)
[2022-04-09 21:52] LABS: AMORPHOUS SEDIMENT, URINE SMALL AMOUNT (NEGATIVE); BACTERIA, URINE NONE SEEN; GRANULAR CAST, URINE 0-1 /lpf; HYALINE CAST, URINE NONE SEEN /lpf (0-1)
[2022-04-09] MEDS ORDERED: POTASSIUM CHLORIDE 10MEQ SR TABLET PO ONE (22:00)
[2022-04-09] MEDS ORDERED: DULO30CA9 PO (22:38)
[2022-04-09] MEDS ORDERED: FENT12DI8 TD (22:38)
[2022-04-09] MEDS ORDERED: HYDR-3363 PO (22:38)
[2022-04-09] MEDS ORDERED: OXYC10TA12 PO (22:38)
[2022-04-09] MEDS ORDERED: SPIR1TAB34 PO (22:38)
[2022-04-09] MEDS ORDERED: ONDA-195 PO (22:38)
[2022-04-09] MEDS ORDERED: HOME MED LIST COMPLETE! XX SCH (22:40)
[2022-04-09 22:44] VITALS: BP 157/97
[2022-04-09] MEDS: DOCUSATE SODIUM 100MG CAPSULE PO SCH (23:29)
[2022-04-09] MEDS: clonazePAM 0.5 MG TAB PO SCH (23:30)
[2022-04-09] MEDS: oxyCODONE 5MG TAB PO PRN (23:34)
[2022-04-09] MEDS: LR 1,000 ML IV SCH (23:38)
[2022-04-10] VITALS (12 sets, daily range): BP systolic 98–155; BP diastolic 52–88; O2SAT 86–94
[2022-04-10 00:49] LABS: MAGNESIUM LEVEL 2.2 MG/DL (1.8-2.4)
[2022-04-10] MEDS: ONDANSETRON 4MG TAB PO PRN ×2 (04:50→23:09)
[2022-04-10 06:22] LABS: HEMATOCRIT 49.2 % (42.0-52.0); MEAN CORPUSCULAR HEMOGLOBIN 28.2 pg (27.0-33.0); MEAN CORPUSCULAR HGB CONC 32.5 g/dl (32.0-36.5); MEAN CORPUSCULAR VOLUME 86.8 fl (80.0-96.0); PLATELET COUNT, AUTOMATED 217 10^3/uL (150-450); RED BLOOD COUNT 5.67 10^6/uL (4.30-6.10); WHITE BLOOD COUNT 10.1 10^3/uL (4.0-10.0)
[2022-04-10] MEDS: LR 1,000 ML IV SCH (06:23)
[2022-04-10 06:50] LABS: ALBUMIN 3.2 G/DL (3.2-5.2); ALKALINE PHOSPHATASE 75 U/L (46-116); ALT/SGPT 79 U/L (7.0-40); AST/SGOT 997 U/L (<34); BILIRUBIN,TOTAL 0.9 MG/DL (0.3-1.2); BLOOD UREA NITROGEN 20 MG/DL (9-23); CALCIUM LEVEL 8.6 MG/DL (8.3-10.6); CARBON DIOXIDE LEVEL 32 MMOL/L (20-31); CHLORIDE LEVEL 97 MMOL/L (98-107); CREATININE FOR GFR 1.17 MG/DL (0.70-1.30); GLOMERULAR FILTRATION RATE > 60.0 (>35); GLUCOSE, FASTING 136 MG/DL (74-106); MAGNESIUM LEVEL 2.2 MG/DL (1.8-2.4); POTASSIUM SERUM 3.6 MMOL/L (3.5-5.1); SODIUM LEVEL 139 MMOL/L (136-145); TOTAL PROTEIN 7.2 G/DL (5.7-8.2)
[2022-04-10 07:14] LABS: CPK CREATINE PHOSPHOKINASE 9828 U/L (46-171)
[2022-04-10] MEDS: cloNIDine 0.1MG TABLET PO SCH (08:56)
[2022-04-10] MEDS: DULoxetine 30MG CAPSULE (CYMBALTA) PO SCH (08:56)
[2022-04-10] MEDS: atenoloL 50 MG TAB PO SCH (08:58)
[2022-04-10] MEDS: SPIRONOLACTONE 25 MG TAB PO SCH (08:58)
[2022-04-10] MEDS: DOCUSATE SODIUM 100MG CAPSULE PO SCH ×2 (08:59→20:25)
[2022-04-10] MEDS: SERTRALINE HCL 50 MG TAB PO SCH (09:00)
[2022-04-10] MEDS: TAMSULOSIN 0.4 MG CAP PO SCH (09:00)
[2022-04-10 09:03] LABS: CPK CREATINE PHOSPHOKINASE > 39000 U/L (46-171)
[2022-04-10] MEDS: oxyCODONE 5MG TAB PO PRN ×3 (09:07→23:38)
[2022-04-10] MEDS ORDERED: FUROSEMIDE 100MG/10ML VIAL IV SCH (13:00)
[2022-04-10] MEDS: NS 1,000 ML IV SCH ×3 (13:23→18:54)
[2022-04-10] MEDS: clonazePAM 0.5 MG TAB PO SCH (20:24)
[2022-04-10] MEDS: FUROSEMIDE injection 250 MG in D5W 225 ML IV SCH (20:24)
[2022-04-10] MEDS: ACETAMINOPHEN TAB 650MG DOSE (2X325MG) PO PRN (20:25)
[2022-04-11] VITALS (17 sets, daily range): BP systolic 126–166; BP diastolic 58–70; O2SAT 90–95
[2022-04-11] MEDS ORDERED: CALCIUM CARBONATE 500 MG CHEW U/D PO ONE
[2022-04-11] MEDS: NS 1,000 ML IV SCH ×2 (01:09→06:03)
[2022-04-11] MEDS: ACETAMINOPHEN TAB 650MG DOSE (2X325MG) PO PRN ×3 (02:47→23:19)
[2022-04-11 05:29] LABS: BASO % 0.2 % (0.0-1.0); EOS # 0.2 10^3/uL (0.0-0.5); EOS % 1.8 % (0.0-3.0); HEMATOCRIT 40.3 % (42.0-52.0); LYMPH # 0.7 10^3/uL (1.5-5.0); LYMPH % 8.7 % (24.0-44.0); MEAN CORPUSCULAR HEMOGLOBIN 27.7 pg (27.0-33.0); MEAN CORPUSCULAR VOLUME 86.5 fl (80.0-96.0); MONO # 0.9 10^3/uL (0.0-0.8); MONO % 10.2 % (2.0-8.0); NEUTROPHILS # 6.6 10^3/uL (1.5-8.5); NEUTROPHILS % 78.6 % (36.0-66.0); PLATELET COUNT, AUTOMATED 178 10^3/uL (150-450); RED BLOOD COUNT 4.66 10^6/uL (4.30-6.10); WHITE BLOOD COUNT 8.4 10^3/uL (4.0-10.0)
[2022-04-11 05:30] LABS: HEMOGLOBIN 12.9 g/dl (13.5-17.5)
[2022-04-11 05:56] LABS: ALBUMIN 2.7 G/DL (3.2-5.2); BILIRUBIN,TOTAL 0.8 MG/DL (0.3-1.2); CALCIUM LEVEL 7.6 MG/DL (8.3-10.6); CREATININE FOR GFR 1.58 MG/DL (0.70-1.30); GLOMERULAR FILTRATION RATE 44.9 (>35); MAGNESIUM LEVEL 1.9 MG/DL (1.8-2.4); POTASSIUM SERUM 3.2 MMOL/L (3.5-5.1)
[2022-04-11] MEDS: oxyCODONE 5MG TAB PO PRN ×3 (06:03→20:09)
[2022-04-11] MEDS ORDERED: POTASSIUM CHLORIDE 10MEQ SR TABLET PO ONE ×2 (07:00→07:45)
[2022-04-11] MEDS: cloNIDine 0.1MG TABLET PO SCH (08:58)
[2022-04-11] MEDS: SPIRONOLACTONE 25 MG TAB PO SCH (08:59)
[2022-04-11] MEDS: DOCUSATE SODIUM 100MG CAPSULE PO SCH ×2 (08:59→20:08)
[2022-04-11] MEDS: atenoloL 50 MG TAB PO SCH (08:59)
[2022-04-11] MEDS: SERTRALINE HCL 50 MG TAB PO SCH (09:00)
[2022-04-11] MEDS: DULoxetine 30MG CAPSULE (CYMBALTA) PO SCH (09:00)
[2022-04-11] MEDS: TAMSULOSIN 0.4 MG CAP PO SCH (09:01)
[2022-04-11] MEDS: FENTANYL REMOVAL DOCUMENTATION MISC XX SCH (09:54)
[2022-04-11] MEDS: ONDANSETRON 4MG TAB PO PRN ×2 (11:30→21:42)
[2022-04-11] MEDS: POTASSIUM CHLORIDE INJ 10 MEQ in NS 1,000 ML IV SCH ×3 (11:31→21:45)
[2022-04-11] MEDS: FUROSEMIDE injection 250 MG in D5W 225 ML IV SCH (16:30)
[2022-04-11] MEDS: RIVAROXABAN 15MG TAB (XARELTO) PO SCH (17:39)
[2022-04-11] MEDS: clonazePAM 0.5 MG TAB PO SCH (20:08)
[2022-04-12] VITALS (23 sets, daily range): BP systolic 106–163; BP diastolic 54–70; O2SAT 90–95
[2022-04-12] MEDS: oxyCODONE 5MG TAB PO PRN ×4 (02:14→21:33)
[2022-04-12] MEDS: POTASSIUM CHLORIDE INJ 10 MEQ in NS 1,000 ML IV SCH ×4 (02:49→20:41)
[2022-04-12 05:19] LABS: BASO % 0.4 % (0.0-1.0); EOS # 0.3 10^3/uL (0.0-0.5); EOS % 3.4 % (0.0-3.0); HEMATOCRIT 41.8 % (42.0-52.0); HEMOGLOBIN 13.4 g/dl (13.5-17.5); LYMPH # 0.8 10^3/uL (1.5-5.0); MEAN CORPUSCULAR HGB CONC 32.1 g/dl (32.0-36.5); MEAN CORPUSCULAR VOLUME 87.3 fl (80.0-96.0); MONO # 0.7 10^3/uL (0.0-0.8); MONO % 9.6 % (2.0-8.0); NEUTROPHILS # 5.7 10^3/uL (1.5-8.5); NEUTROPHILS % 74.9 % (36.0-66.0); PLATELET COUNT, AUTOMATED 184 10^3/uL (150-450); RED BLOOD COUNT 4.79 10^6/uL (4.30-6.10); WHITE BLOOD COUNT 7.6 10^3/uL (4.0-10.0)
[2022-04-12 05:38] LABS: ALBUMIN 2.9 G/DL (3.2-5.2); BILIRUBIN,TOTAL 0.7 MG/DL (0.3-1.2); CALCIUM LEVEL 8.3 MG/DL (8.3-10.6); CREATININE FOR GFR 1.55 MG/DL (0.70-1.30); GLOMERULAR FILTRATION RATE 45.9 (>35); MAGNESIUM LEVEL 1.6 MG/DL (1.8-2.4); POTASSIUM SERUM 3.5 MMOL/L (3.5-5.1)
[2022-04-12] MEDS ORDERED: MAG SULF 1GM/100ML (MAG RUN) 1 GM in IV 1 EA IV ONE (07:00)
[2022-04-12] MEDS ORDERED: SENOKOT S TAB PO SCH ×2 (09:00→21:00)
[2022-04-12] MEDS: DOCUSATE SODIUM 100MG CAPSULE PO SCH ×2 (10:51→21:00)
[2022-04-12] MEDS: DULoxetine 30MG CAPSULE (CYMBALTA) PO SCH (10:53)
[2022-04-12] MEDS: ONDANSETRON 4MG TAB PO PRN ×3 (10:53→19:43)
[2022-04-12] MEDS: cloNIDine 0.1MG TABLET PO SCH (10:53)
[2022-04-12] MEDS: SERTRALINE HCL 50 MG TAB PO SCH (10:54)
[2022-04-12] MEDS: SPIRONOLACTONE 25 MG TAB PO SCH (10:55)
[2022-04-12] MEDS: POTASSIUM CHLORIDE 10MEQ SR TABLET PO SCH ×2 (10:55→21:34)
[2022-04-12] MEDS: atenoloL 50 MG TAB PO SCH (10:57)
[2022-04-12] MEDS: TAMSULOSIN 0.4 MG CAP PO SCH (10:57)
[2022-04-12] MEDS: RIVAROXABAN 15MG TAB (XARELTO) PO SCH (17:17)
[2022-04-12] MEDS: FUROSEMIDE injection 250 MG in D5W 225 ML IV SCH (17:18)
[2022-04-12] MEDS: clonazePAM 0.5 MG TAB PO SCH (21:33)
[2022-04-13] VITALS (25 sets, daily range): BP systolic 131–167; BP diastolic 61–70; O2SAT 89–100
[2022-04-13] MEDS: ACETAMINOPHEN TAB 650MG DOSE (2X325MG) PO PRN (00:15)
[2022-04-13] MEDS: POTASSIUM CHLORIDE INJ 10 MEQ in NS 1,000 ML IV SCH ×4 (02:20→22:07)
[2022-04-13] MEDS: ONDANSETRON 4MG TAB PO PRN ×2 (02:23→15:17)
[2022-04-13] MEDS: oxyCODONE 5MG TAB PO PRN ×4 (03:36→22:05)
[2022-04-13 04:00] LABS: BASO % 0.4 % (0.0-1.0); EOS # 0.3 10^3/uL (0.0-0.5); EOS % 3.1 % (0.0-3.0); HEMOGLOBIN 13.7 g/dl (13.5-17.5); LYMPH # 0.9 10^3/uL (1.5-5.0); LYMPH % 10.8 % (24.0-44.0); MEAN CORPUSCULAR HEMOGLOBIN 28.1 pg (27.0-33.0); MEAN CORPUSCULAR HGB CONC 32.6 g/dl (32.0-36.5); MEAN CORPUSCULAR VOLUME 86.1 fl (80.0-96.0); MONO # 0.9 10^3/uL (0.0-0.8); MONO % 10.6 % (2.0-8.0); NEUTROPHILS # 6.1 10^3/uL (1.5-8.5); NEUTROPHILS % 74.6 % (36.0-66.0); PLATELET COUNT, AUTOMATED 200 10^3/uL (150-450); RED BLOOD COUNT 4.88 10^6/uL (4.30-6.10); WHITE BLOOD COUNT 8.1 10^3/uL (4.0-10.0)
[2022-04-13 04:33] LABS: ALBUMIN 2.9 G/DL (3.2-5.2); BILIRUBIN,TOTAL 0.8 MG/DL (0.3-1.2); CALCIUM LEVEL 8.4 MG/DL (8.3-10.6); CREATININE FOR GFR 1.4 MG/DL (0.70-1.30); GLOMERULAR FILTRATION RATE 51.7 (>35); MAGNESIUM LEVEL 1.5 MG/DL (1.8-2.4); POTASSIUM SERUM 3.4 MMOL/L (3.5-5.1); TOTAL PROTEIN 6.4 G/DL (5.7-8.2)
[2022-04-13] MEDS ORDERED: SENNA 8.6 MG TAB (SENOKOT) PO PRN ×2 (08:20→10:15)
[2022-04-13] MEDS: DOCUSATE SODIUM 100MG CAPSULE PO SCH ×2 (08:54→22:04)
[2022-04-13] MEDS ORDERED: MAGNESIUM OXIDE 400MG TAB (MAG-OX) PO ONE (09:00)
[2022-04-13] MEDS ORDERED: POTASSIUM CHLORIDE 10MEQ SR TABLET PO ONE (09:00)
[2022-04-13] MEDS: DULoxetine 30MG CAPSULE (CYMBALTA) PO SCH (09:23)
[2022-04-13] MEDS: POTASSIUM CHLORIDE 10MEQ SR TABLET PO SCH ×2 (09:23→22:06)
[2022-04-13] MEDS: TAMSULOSIN 0.4 MG CAP PO SCH (09:24)
[2022-04-13] MEDS: atenoloL 50 MG TAB PO SCH (09:24)
[2022-04-13] MEDS: SPIRONOLACTONE 25 MG TAB PO SCH (09:25)
[2022-04-13] MEDS: cloNIDine 0.1MG TABLET PO SCH (09:25)
[2022-04-13] MEDS: SERTRALINE HCL 50 MG TAB PO SCH (09:25)
[2022-04-13] MEDS: FUROSEMIDE injection 250 MG in D5W 225 ML IV SCH (15:34)
[2022-04-13] MEDS: RIVAROXABAN 15MG TAB (XARELTO) PO SCH (17:13)
[2022-04-13] MEDS: clonazePAM 0.5 MG TAB PO SCH (22:03)
[2022-04-14] VITALS (22 sets, daily range): BP systolic 131–162; BP diastolic 65–95; O2SAT 82–94
[2022-04-14] MEDS: ACETAMINOPHEN TAB 650MG DOSE (2X325MG) PO PRN ×2 (01:58→08:41)
[2022-04-14] MEDS: oxyCODONE 5MG TAB PO PRN ×4 (03:57→22:10)
[2022-04-14 05:30] LABS: BASO % 0.5 % (0.0-1.0); EOS # 0.3 10^3/uL (0.0-0.5); EOS % 3.8 % (0.0-3.0); HEMATOCRIT 45.5 % (42.0-52.0); HEMOGLOBIN 14.6 g/dl (13.5-17.5); LYMPH # 0.8 10^3/uL (1.5-5.0); LYMPH % 10.3 % (24.0-44.0); MEAN CORPUSCULAR HEMOGLOBIN 27.9 pg (27.0-33.0); MEAN CORPUSCULAR HGB CONC 32.1 g/dl (32.0-36.5); MEAN CORPUSCULAR VOLUME 86.8 fl (80.0-96.0); MONO # 0.9 10^3/uL (0.0-0.8); MONO % 10.5 % (2.0-8.0); NEUTROPHILS % 73.9 % (36.0-66.0); PLATELET COUNT, AUTOMATED 205 10^3/uL (150-450); RED BLOOD COUNT 5.24 10^6/uL (4.30-6.10); WHITE BLOOD COUNT 8.1 10^3/uL (4.0-10.0)
[2022-04-14 05:46] LABS: ALBUMIN 2.7 G/DL (3.2-5.2); BILIRUBIN,TOTAL 0.9 MG/DL (0.3-1.2); CALCIUM LEVEL 8.1 MG/DL (8.3-10.6); CREATININE FOR GFR 1.25 MG/DL (0.70-1.30); GLOMERULAR FILTRATION RATE 58.9 (>35); MAGNESIUM LEVEL 1.3 MG/DL (1.8-2.4); POTASSIUM SERUM 3.8 MMOL/L (3.5-5.1); TOTAL PROTEIN 6.2 G/DL (5.7-8.2)
[2022-04-14] MEDS ORDERED: MAGNESIUM OXIDE 400MG TAB (MAG-OX) PO ONE (07:15)
[2022-04-14] MEDS: FENTANYL REMOVAL DOCUMENTATION MISC XX SCH (08:39)
[2022-04-14] MEDS: cloNIDine 0.1MG TABLET PO SCH (08:42)
[2022-04-14] MEDS: POTASSIUM CHLORIDE 10MEQ SR TABLET PO SCH ×2 (08:43→20:43)
[2022-04-14] MEDS: SERTRALINE HCL 50 MG TAB PO SCH (08:43)
[2022-04-14] MEDS: DOCUSATE SODIUM 100MG CAPSULE PO SCH ×2 (08:43→20:43)
[2022-04-14] MEDS: TAMSULOSIN 0.4 MG CAP PO SCH (08:43)
[2022-04-14] MEDS: DULoxetine 30MG CAPSULE (CYMBALTA) PO SCH (08:43)
[2022-04-14] MEDS: atenoloL 50 MG TAB PO SCH (08:43)
[2022-04-14] MEDS: RIVAROXABAN 15MG TAB (XARELTO) PO SCH (16:09)
[2022-04-14] MEDS: ONDANSETRON 4MG TAB PO PRN (20:43)
[2022-04-14] MEDS: clonazePAM 0.5 MG TAB PO SCH (20:43)
[2022-04-15] VITALS (18 sets, daily range): BP systolic 130–161; BP diastolic 66–78; O2SAT 92–96
[2022-04-15] MEDS: ACETAMINOPHEN TAB 650MG DOSE (2X325MG) PO PRN (02:43)
[2022-04-15] MEDS: oxyCODONE 5MG TAB PO PRN ×4 (04:08→22:40)
[2022-04-15 04:24] LABS: BASO # 0.1 10^3/uL (0.0-0.2); BASO % 0.6 % (0.0-1.0); EOS # 0.3 10^3/uL (0.0-0.5); EOS % 3.7 % (0.0-3.0); HEMATOCRIT 46.1 % (42.0-52.0); HEMOGLOBIN 14.9 g/dl (13.5-17.5); LYMPH # 0.9 10^3/uL (1.5-5.0); LYMPH % 10.6 % (24.0-44.0); MEAN CORPUSCULAR HGB CONC 32.3 g/dl (32.0-36.5); MEAN CORPUSCULAR VOLUME 86.7 fl (80.0-96.0); MONO # 0.9 10^3/uL (0.0-0.8); MONO % 10.7 % (2.0-8.0); NEUTROPHILS # 6.4 10^3/uL (1.5-8.5); NEUTROPHILS % 73.5 % (36.0-66.0); PLATELET COUNT, AUTOMATED 217 10^3/uL (150-450); RED BLOOD COUNT 5.32 10^6/uL (4.30-6.10); WHITE BLOOD COUNT 8.7 10^3/uL (4.0-10.0)
[2022-04-15 04:54] LABS: ALBUMIN 2.7 G/DL (3.2-5.2); ALKALINE PHOSPHATASE 64 U/L (46-116); ALT/SGPT 55 U/L (7.0-40); AST/SGOT 180 U/L (<34); BLOOD UREA NITROGEN 33 MG/DL (9-23); CALCIUM LEVEL 8.1 MG/DL (8.3-10.6); CARBON DIOXIDE LEVEL 31 MMOL/L (20-31); CHLORIDE LEVEL 97 MMOL/L (98-107); CREATININE FOR GFR 1.06 MG/DL (0.70-1.30); GLOMERULAR FILTRATION RATE > 60.0 (>35); GLUCOSE, FASTING 129 MG/DL (74-106); MAGNESIUM LEVEL 1.5 MG/DL (1.8-2.4); SODIUM LEVEL 135 MMOL/L (136-145); TOTAL PROTEIN 6.1 G/DL (5.7-8.2)
[2022-04-15 05:06] LABS: CPK CREATINE PHOSPHOKINASE 1326 U/L (46-171)
[2022-04-15] MEDS ORDERED: MAGNESIUM OXIDE 400MG TAB (MAG-OX) PO ONE (07:35)
[2022-04-15] MEDS: cloNIDine 0.1MG TABLET PO SCH (08:54)
[2022-04-15] MEDS: ONDANSETRON 4MG TAB PO PRN ×2 (08:54→20:39)
[2022-04-15] MEDS: SERTRALINE HCL 50 MG TAB PO SCH (08:54)
[2022-04-15] MEDS: POTASSIUM CHLORIDE 10MEQ SR TABLET PO SCH ×2 (08:54→20:39)
[2022-04-15] MEDS: DULoxetine 30MG CAPSULE (CYMBALTA) PO SCH (08:54)
[2022-04-15] MEDS: atenoloL 50 MG TAB PO SCH (08:55)
[2022-04-15] MEDS: TAMSULOSIN 0.4 MG CAP PO SCH (08:55)
[2022-04-15] MEDS: DOCUSATE SODIUM 100MG CAPSULE PO SCH ×2 (08:55→20:43)
[2022-04-15] MEDS: RIVAROXABAN 15MG TAB (XARELTO) PO SCH (18:36)
[2022-04-15] MEDS: clonazePAM 0.5 MG TAB PO SCH (20:39)
[2022-04-16] VITALS: BP 155/73
[2022-04-16] MEDS: ACETAMINOPHEN TAB 650MG DOSE (2X325MG) PO PRN (02:29)
[2022-04-16] MEDS: ONDANSETRON 4MG TAB PO PRN ×2 (03:27→20:59)
[2022-04-16 04:00] VITALS: BP 155/73
[2022-04-16] MEDS: oxyCODONE 5MG TAB PO PRN ×4 (04:35→23:32)
[2022-04-16 04:46] LABS: BASO # 0.1 10^3/uL (0.0-0.2); BASO % 0.7 % (0.0-1.0); EOS # 0.3 10^3/uL (0.0-0.5); EOS % 2.7 % (0.0-3.0); HEMATOCRIT 46.9 % (42.0-52.0); HEMOGLOBIN 14.9 g/dl (13.5-17.5); LYMPH # 0.8 10^3/uL (1.5-5.0); MEAN CORPUSCULAR HEMOGLOBIN 27.5 pg (27.0-33.0); MEAN CORPUSCULAR HGB CONC 31.8 g/dl (32.0-36.5); MEAN CORPUSCULAR VOLUME 86.5 fl (80.0-96.0); MONO # 0.9 10^3/uL (0.0-0.8); MONO % 9.8 % (2.0-8.0); NEUTROPHILS # 7.1 10^3/uL (1.5-8.5); NEUTROPHILS % 76.7 % (36.0-66.0); PLATELET COUNT, AUTOMATED 223 10^3/uL (150-450); RED BLOOD COUNT 5.42 10^6/uL (4.30-6.10); WHITE BLOOD COUNT 9.2 10^3/uL (4.0-10.0)
[2022-04-16 05:18] LABS: ALBUMIN 2.8 G/DL (3.2-5.2); ALKALINE PHOSPHATASE 67 U/L (46-116); ALT/SGPT 47 U/L (7.0-40); AST/SGOT 108 U/L (<34); BILIRUBIN,TOTAL 1.1 MG/DL (0.3-1.2); BLOOD UREA NITROGEN 34 MG/DL (9-23); CALCIUM LEVEL 8.1 MG/DL (8.3-10.6); CARBON DIOXIDE LEVEL 30 MMOL/L (20-31); CHLORIDE LEVEL 98 MMOL/L (98-107); CPK CREATINE PHOSPHOKINASE 566 U/L (46-171); CREATININE FOR GFR 1.03 MG/DL (0.70-1.30); GLOMERULAR FILTRATION RATE > 60.0 (>35); GLUCOSE, FASTING 126 MG/DL (74-106); MAGNESIUM LEVEL 1.7 MG/DL (1.8-2.4); SODIUM LEVEL 134 MMOL/L (136-145); TOTAL PROTEIN 6.1 G/DL (5.7-8.2)
[2022-04-16] MEDS ORDERED: MAGNESIUM OXIDE 400MG TAB (MAG-OX) PO ONE (07:40)
[2022-04-16 08:14] VITALS: BP 156/72
[2022-04-16] MEDS: cloNIDine 0.1MG TABLET PO SCH (09:33)
[2022-04-16] MEDS: TAMSULOSIN 0.4 MG CAP PO SCH (09:34)
[2022-04-16] MEDS: atenoloL 50 MG TAB PO SCH (09:34)
[2022-04-16] MEDS: DULoxetine 30MG CAPSULE (CYMBALTA) PO SCH (09:34)
[2022-04-16] MEDS: SERTRALINE HCL 50 MG TAB PO SCH (09:34)
[2022-04-16] MEDS: DOCUSATE SODIUM 100MG CAPSULE PO SCH ×2 (09:34→20:53)
[2022-04-16] MEDS: POTASSIUM CHLORIDE 10MEQ SR TABLET PO SCH ×2 (09:34→20:53)
[2022-04-16 15:40] VITALS: BP 142/67
[2022-04-16] MEDS: RIVAROXABAN 15MG TAB (XARELTO) PO SCH (17:24)
[2022-04-16 18:00] VITALS: BP 161/81
[2022-04-16] MEDS: clonazePAM 0.5 MG TAB PO SCH (20:54)
[2022-04-16 22:00] VITALS: BP 158/77
[2022-04-17] MEDS: RAMELTEON 8 MG TAB (ROZEREM) PO PRN ×2 (02:10→19:58)
[2022-04-17] MEDS: ACETAMINOPHEN TAB 650MG DOSE (2X325MG) PO PRN (04:08)
[2022-04-17] MEDS: ONDANSETRON 4MG TAB PO PRN ×2 (04:08→15:21)
[2022-04-17] MEDS: oxyCODONE 5MG TAB PO PRN ×3 (05:38→17:52)
[2022-04-17 05:55] LABS: BASO # 0.1 10^3/uL (0.0-0.2); BASO % 0.7 % (0.0-1.0); EOS # 0.3 10^3/uL (0.0-0.5); EOS % 3.2 % (0.0-3.0); HEMATOCRIT 43.2 % (42.0-52.0); LYMPH # 0.9 10^3/uL (1.5-5.0); LYMPH % 10.5 % (24.0-44.0); MEAN CORPUSCULAR HEMOGLOBIN 28.1 pg (27.0-33.0); MEAN CORPUSCULAR HGB CONC 32.4 g/dl (32.0-36.5); MEAN CORPUSCULAR VOLUME 86.7 fl (80.0-96.0); MONO # 0.9 10^3/uL (0.0-0.8); MONO % 10.4 % (2.0-8.0); NEUTROPHILS # 6.1 10^3/uL (1.5-8.5); PLATELET COUNT, AUTOMATED 211 10^3/uL (150-450); RED BLOOD COUNT 4.98 10^6/uL (4.30-6.10); WHITE BLOOD COUNT 8.2 10^3/uL (4.0-10.0)
[2022-04-17 06:00] VITALS: BP 145/77
[2022-04-17] MEDS: cloNIDine 0.1MG TABLET PO SCH (08:42)
[2022-04-17] MEDS: POTASSIUM CHLORIDE 10MEQ SR TABLET PO SCH ×2 (08:44→19:58)
[2022-04-17] MEDS: DULoxetine 30MG CAPSULE (CYMBALTA) PO SCH (08:44)
[2022-04-17] MEDS: TAMSULOSIN 0.4 MG CAP PO SCH (08:44)
[2022-04-17] MEDS: SERTRALINE HCL 50 MG TAB PO SCH (08:44)
[2022-04-17] MEDS: DOCUSATE SODIUM 100MG CAPSULE PO SCH ×2 (08:44→19:58)
[2022-04-17] MEDS: atenoloL 50 MG TAB PO SCH (08:45)
[2022-04-17] MEDS: FENTANYL REMOVAL DOCUMENTATION MISC XX SCH (08:56)
[2022-04-17 09:00] LABS: ALBUMIN 2.7 G/DL (3.2-5.2); ALKALINE PHOSPHATASE 67 U/L (46-116); ALT/SGPT 46 U/L (7.0-40); AST/SGOT 76 U/L (<34); BLOOD UREA NITROGEN 34 MG/DL (9-23); CALCIUM LEVEL 8.8 MG/DL (8.3-10.6); CARBON DIOXIDE LEVEL 32 MMOL/L (20-31); CHLORIDE LEVEL 96 MMOL/L (98-107); CPK CREATINE PHOSPHOKINASE 277 U/L (46-171); GLOMERULAR FILTRATION RATE > 60.0 (>35); GLUCOSE, FASTING 128 MG/DL (74-106); MAGNESIUM LEVEL 1.8 MG/DL (1.8-2.4); POTASSIUM SERUM 4.1 MMOL/L (3.5-5.1); SODIUM LEVEL 133 MMOL/L (136-145); TOTAL PROTEIN 5.9 G/DL (5.7-8.2)
[2022-04-17] MEDS: RIVAROXABAN 15MG TAB (XARELTO) PO SCH (17:50)
[2022-04-17] MEDS: clonazePAM 0.5 MG TAB PO SCH (19:58)
[2022-04-18] MEDS: oxyCODONE 5MG TAB PO PRN ×4 (00:01→18:27)
[2022-04-18] MEDS: ACETAMINOPHEN TAB 650MG DOSE (2X325MG) PO PRN ×2 (02:09→23:35)
[2022-04-18 06:00] VITALS: BP 155/75
[2022-04-18] MEDS: DULoxetine 30MG CAPSULE (CYMBALTA) PO SCH (09:00)
[2022-04-18] MEDS: atenoloL 50 MG TAB PO SCH (09:01)
[2022-04-18] MEDS: SERTRALINE HCL 50 MG TAB PO SCH (09:01)
[2022-04-18] MEDS: TAMSULOSIN 0.4 MG CAP PO SCH (09:01)
[2022-04-18] MEDS: cloNIDine 0.1MG TABLET PO SCH (09:01)
[2022-04-18] MEDS: DOCUSATE SODIUM 100MG CAPSULE PO SCH ×2 (09:01→20:56)
[2022-04-18] MEDS: POTASSIUM CHLORIDE 10MEQ SR TABLET PO SCH ×2 (09:01→20:56)
[2022-04-18] MEDS: clonazePAM 0.5 MG TAB PO PRN ×2 (09:02→15:07)
[2022-04-18] MEDS: ONDANSETRON 4MG TAB PO PRN ×2 (15:07→21:01)
[2022-04-18] MEDS: MOM 30ML SUSPENSION UDC PO SCH ×3 (15:09→23:41)
[2022-04-18] MEDS: RIVAROXABAN 15MG TAB (XARELTO) PO SCH (17:05)
[2022-04-18] MEDS: RAMELTEON 8 MG TAB (ROZEREM) PO PRN (20:55)
[2022-04-18] MEDS: clonazePAM 0.5 MG TAB PO SCH (20:56)
[2022-04-19] MEDS: oxyCODONE 5MG TAB PO PRN ×2 (00:30→06:32)
[2022-04-19] MEDS: ONDANSETRON 4MG TAB PO PRN (02:03)
[2022-04-19] MEDS: MOM 30ML SUSPENSION UDC PO SCH ×2 (04:00→08:00)
[2022-04-19] MEDS ORDERED: PERCOCET 5MG/325MG TAB PO ONE (04:10)
[2022-04-19 04:11] VITALS: BP 152/75
[2022-04-19 05:49] LABS: MB/CK RELATIVE INDEX 0.99 (< OR =4)
[2022-04-19 06:00] VITALS: BP 151/74
[2022-04-19] MEDS: DOCUSATE SODIUM 100MG CAPSULE PO SCH (08:40)
[2022-04-19] MEDS: POTASSIUM CHLORIDE 10MEQ SR TABLET PO SCH (08:41)
[2022-04-19] MEDS: SERTRALINE HCL 50 MG TAB PO SCH (08:41)
[2022-04-19] MEDS: clonazePAM 0.5 MG TAB PO PRN (08:41)
[2022-04-19] MEDS: TAMSULOSIN 0.4 MG CAP PO SCH (08:41)
[2022-04-19 08:42] VITALS: BP 157/71
[2022-04-19] MEDS: cloNIDine 0.1MG TABLET PO SCH (08:42)
[2022-04-19] MEDS: atenoloL 50 MG TAB PO SCH (08:42)
[2022-04-19] MEDS: DULoxetine 30MG CAPSULE (CYMBALTA) PO SCH (08:42)
== END 2022-04-19 08:54 | disposition other institution (70) | DRG 557 ==
LOC: M ED 16:16 → M ED INP 21:27 → M MSPAV 22:42 → M PCU 04-10 14:46 → M MSPAV 04-16 18:09
PROVIDERS: ADMIT Internal Medicine; ATTEND General Practice
DX: M62.82 Rhabdomyolysis (principal); I50.33 Acute on chronic diastolic (congestive) heart failure; N17.9 Acute kidney failure, unspecified; I13.0 Hypertensive heart and chronic kidney disease with heart failure and stage 1 through stage 4 chronic kidney disease, or unspecified chronic kidney disease; I48.20 Chronic atrial fibrillation, unspecified; K21.9 Gastro-esophageal reflux disease without esophagitis; M54.9 Dorsalgia, unspecified; G89.29 Other chronic pain; Z90.49 Acquired absence of other specified parts of digestive tract; E87.6 Hypokalemia; N40.0 Benign prostatic hyperplasia without lower urinary tract symptoms; D64.9 Anemia, unspecified; N18.9 Chronic kidney disease, unspecified; F41.9 Anxiety disorder, unspecified; F32.A Depression, unspecified; Z79.899 Other long term (current) drug therapy; Z91.030 Bee allergy status

== ENCOUNTER → 2022-04-25 | Outpatient (REF) ==
[~2022-04-25] MED LIST changes: +DULO30CA9 PO; +FENT12DI8 TD; +ONDA-195 PO; +OXYC10TA12 PO
[2022-04-25 08:34] LABS: HEMATOCRIT 39.9 % (42.0-52.0); HEMOGLOBIN 12.9 g/dl (13.5-17.5); MEAN CORPUSCULAR HEMOGLOBIN 28.1 pg (27.0-33.0); MEAN CORPUSCULAR HGB CONC 32.3 g/dl (32.0-36.5); MEAN CORPUSCULAR VOLUME 86.9 fl (80.0-96.0); PLATELET COUNT, AUTOMATED 277 10^3/uL (150-450); RED BLOOD COUNT 4.59 10^6/uL (4.30-6.10)
[2022-04-25 09:09] LABS: BLOOD UREA NITROGEN 20 MG/DL (9-23); CALCIUM LEVEL 8.9 MG/DL (8.3-10.6); CARBON DIOXIDE LEVEL 29 MMOL/L (20-31); CHLORIDE LEVEL 98 MMOL/L (98-107); CREATININE FOR GFR 0.83 MG/DL (0.70-1.30); GLOMERULAR FILTRATION RATE > 60.0 (>35); GLUCOSE, FASTING 112 MG/DL (74-106); POTASSIUM SERUM 3.6 MMOL/L (3.5-5.1); SODIUM LEVEL 133 MMOL/L (136-145)
== END ==
PROVIDERS: ATTEND Physician Assistant
DX: I10 Essential (primary) hypertension (principal)

== ENCOUNTER → 2022-04-26 | Outpatient (REF) ==
[2022-04-26 11:19] LABS: HEMATOCRIT 39.4 % (42.0-52.0); HEMOGLOBIN 12.8 g/dl (13.5-17.5); MEAN CORPUSCULAR HGB CONC 32.5 g/dl (32.0-36.5); MEAN CORPUSCULAR VOLUME 86.2 fl (80.0-96.0); PLATELET COUNT, AUTOMATED 281 10^3/uL (150-450); RED BLOOD COUNT 4.57 10^6/uL (4.30-6.10); WHITE BLOOD COUNT 12.2 10^3/uL (4.0-10.0)
== END ==
PROVIDERS: ATTEND Physician Assistant
DX: D72.829 Elevated white blood cell count, unspecified (principal)

== ENCOUNTER → 2022-04-26 | Outpatient (REF) | payer MEDICARE | PROVIDERS: ATTEND Internal Medicine | DX: R05.9 Cough, unspecified (principal) ==

== ENCOUNTER → 2022-04-30 | Outpatient (REF) ==
[~2022-04-30] MED LIST changes: -OXYC-404 PO; +OXYC20TA64 PO
[2022-04-30 10:00] LABS: HEMATOCRIT 41.8 % (42.0-52.0); HEMOGLOBIN 13.5 g/dl (13.5-17.5); MEAN CORPUSCULAR HEMOGLOBIN 28.2 pg (27.0-33.0); MEAN CORPUSCULAR HGB CONC 32.3 g/dl (32.0-36.5); MEAN CORPUSCULAR VOLUME 87.4 fl (80.0-96.0); PLATELET COUNT, AUTOMATED 299 10^3/uL (150-450); RED BLOOD COUNT 4.78 10^6/uL (4.30-6.10); WHITE BLOOD COUNT 6.4 10^3/uL (4.0-10.0)
[2022-04-30 10:29] LABS: BLOOD UREA NITROGEN 16 MG/DL (9-23); CALCIUM LEVEL 8.9 MG/DL (8.3-10.6); CARBON DIOXIDE LEVEL 30 MMOL/L (20-31); CHLORIDE LEVEL 98 MMOL/L (98-107); CREATININE FOR GFR 0.68 MG/DL (0.70-1.30); GLOMERULAR FILTRATION RATE > 60.0 (>35); GLUCOSE, FASTING 109 MG/DL (74-106); POTASSIUM SERUM 3.7 MMOL/L (3.5-5.1); SODIUM LEVEL 136 MMOL/L (136-145)
== END ==
PROVIDERS: ATTEND Physician Assistant
DX: I10 Essential (primary) hypertension (principal)

== ENCOUNTER → 2022-05-23 | Outpatient (REF) | payer MEDICARE ==
[2022-05-23 11:15] LABS: HEMATOCRIT 46.2 % (42.0-52.0); HEMOGLOBIN 14.6 g/dl (13.5-17.5); MEAN CORPUSCULAR HEMOGLOBIN 28.3 pg (27.0-33.0); MEAN CORPUSCULAR HGB CONC 31.6 g/dl (32.0-36.5); MEAN CORPUSCULAR VOLUME 89.5 fl (80.0-96.0); PLATELET COUNT, AUTOMATED 209 10^3/uL (150-450); RED BLOOD COUNT 5.16 10^6/uL (4.30-6.10); WHITE BLOOD COUNT 5.7 10^3/uL (4.0-10.0)
[2022-05-23 11:40] LABS: BLOOD UREA NITROGEN 13 MG/DL (9-23); CALCIUM LEVEL 8.7 MG/DL (8.3-10.6); CARBON DIOXIDE LEVEL 30 MMOL/L (20-31); CHLORIDE LEVEL 99 MMOL/L (98-107); CREATININE FOR GFR 0.88 MG/DL (0.70-1.30); GLOMERULAR FILTRATION RATE > 60.0 (>35); GLUCOSE, FASTING 132 MG/DL (74-106); SODIUM LEVEL 135 MMOL/L (136-145)
== END ==
PROVIDERS: ATTEND Internal Medicine
DX: I10 Essential (primary) hypertension (principal)

== ENCOUNTER 2024-10-19 11:08 | Inpatient (IN) | payer MEDICARE ==
[~2024-10-19] VITALS: Ht 182.9 cm; Wt 84.9 kg
[~2024-10-19 11:08] MED LIST changes: -FLOM0.4C39 PO; +LIDO1ADH93 TD; -LIDO5DIS41 TD; +PREG-35 PO; -PREG100C PO; +PREG100C2 PO; -PREG100CA PO; +TAMS-18 PO
[2024-10-19 11:48] LABS: BASO # 0.0 10^3/uL (0.0-0.2); BASO % 0.2 % (0.0-1.0); EOS # 0.0 10^3/uL (0.0-0.5); EOS % 0.1 % (0.0-3.0); LYMPH # 0.8 10^3/uL (1.5-5.0); LYMPH % 6.6 % (24.0-44.0); MONO # 0.9 10^3/uL (0.0-0.8); MONO % 8.1 % (2.0-8.0); NEUTROPHILS # 9.7 10^3/uL (1.5-8.5); NEUTROPHILS % 84.5 % (36.0-66.0); PLATELET COUNT, AUTOMATED 270 10^3/uL (150-450)
[2024-10-19 12:09] LABS: ALT/SGPT 12.0 U/L (7.0-40); AST/SGOT 62.0 U/L (<34); CALCIUM LEVEL 8.7 MG/DL (8.3-10.6); CARBON DIOXIDE LEVEL 30.0 MMOL/L (20-31); CHLORIDE LEVEL 96.0 MMOL/L (98-107); CREATININE FOR GFR 1.5 MG/DL (0.70-1.30); GLOMERULAR FILTRATION RATE 45.3 (>35); POTASSIUM SERUM 5.3 MMOL/L (3.5-5.1); SODIUM LEVEL 137.0 MMOL/L (136-145)
[2024-10-19] MEDS: MORPHINE 2 MG/ML 1 ML VIAL IV ONE (12:40)
[2024-10-19] MEDS: ONDANSETRON 4MG 2ML VIAL IV ONE (12:40)
[2024-10-19 12:57] LABS: INR 1.49
[2024-10-19 13:10] LABS: CK-MB VALUE MASS 1.3 NG/ML (<3.6)
[2024-10-19 13:15] LABS: ALT/SGPT < 9 U/L (7.0-40); AST/SGOT 16 U/L (<34); CPK CREATINE PHOSPHOKINASE 16 U/L (46-171); MB/CK RELATIVE INDEX 8.12 (< OR =4)
[2024-10-19] MEDS ORDERED: ACET-907 PO (13:34)
[2024-10-19] MEDS ORDERED: MIRA3350 PO (13:34)
[2024-10-19] MEDS ORDERED: META-10 PO (13:34)
[2024-10-19] MEDS ORDERED: HOME MED LIST COMPLETE! XX SCH (13:35)
[2024-10-19 14:01] LABS: POTASSIUM SERUM 2.3 MMOL/L (3.5-5.1)
[2024-10-19] MEDS: PATIROMER SORBITEX CALCIUM 8.4GM POWDER PACKET PO ONE (14:08)
[2024-10-19] MEDS: NS (Normal Saline) 0.9% 1,000 ML IV SCH (14:09)
[2024-10-19] MEDS: CALCIUM GLUCONATE 1,000 MG in DEXTROSE 5% (D5W) MINI-BAG PLU 100 ML IV ONE (14:09)
[2024-10-19 14:19] LABS: KETONE, URINE AUTO RFX NEGATIVE (NEGATIVE); NITRITE, URINE AUTO RFX NEGATIVE (NEGATIVE); RBC, URINE AUTO RFX 7 /HPF (0-3); SQUAM EPITHELIAL CELL UR AURFX 4 /HPF (0-6)
[2024-10-19 14:20] LABS: LEUKOCYTE ESTERASE UR AUTO RFX 3+ (NEGATIVE); WBC, URINE AUTO RFX 90 /HPF (0-3)
[2024-10-19] MEDS: POTASSIUM CHLORIDE 10MEQ SR TABLET PO ONE (15:18)
[2024-10-19] MEDS ORDERED: ACETAMINOPHEN 325 MG TAB PO PRN (15:35)
[2024-10-19] MEDS ORDERED: ONDANSETRON 4MG TAB PO PRN (15:35)
[2024-10-19] MEDS: MORPHINE 4 MG/ML 1 ML VIAL IV ONE (15:48)
[2024-10-19] MEDS: SERTRALINE HCL 25 MG TABLET PO ONE (16:31)
[2024-10-19] MEDS: RIVAROXABAN 20MG TAB PO ONE (16:32)
[2024-10-19] MEDS: TAMSULOSIN 0.4 MG CAP PO SCH (16:32)
[2024-10-19] MEDS: clonazePAM 0.5 MG TAB PO SCH (16:32)
[2024-10-19] MEDS: cefTRIAXone SOD 1 GM in DEXTROSE 5% (D5W) ADV/MINI-BAG 50 ML IV SCH (16:33)
[2024-10-19 18:01] VITALS: BP 138/98; O2SAT 97
[2024-10-19 19:35] VITALS: BP 149/74; TEMP 97.5; O2SAT 96
[2024-10-19 20:00] VITALS: O2SAT 95
[2024-10-20 01:17] LABS: CALCIUM LEVEL 8.4 MG/DL (8.3-10.6); CARBON DIOXIDE LEVEL 32.0 MMOL/L (20-31); CHLORIDE LEVEL 99.0 MMOL/L (98-107); CREATININE FOR GFR 1.38 MG/DL (0.70-1.30); GLOMERULAR FILTRATION RATE 50.1 (>35); MAGNESIUM LEVEL 1.6 MG/DL (1.8-2.4); POTASSIUM SERUM 2.8 MMOL/L (3.5-5.1); SODIUM LEVEL 140.0 MMOL/L (136-145)
[2024-10-20] MEDS: MAG SULF 1GM/100ML (MAG RUN) 1 GM in IV 1 EA IV SCH (01:41)
[2024-10-20] MEDS: POTASSIUM CHLORIDE 10MEQ SR TABLET PO ONE ×2 (01:43→14:05)
[2024-10-20] MEDS ORDERED: KCL 10MEQ/100ML SWI (KRUN) 10 MEQ in IV 1 EA IV SCH (02:00)
[2024-10-20 03:33] VITALS: BP 136/78; TEMP 97.3; O2SAT 95
[2024-10-20] MEDS: KCL 10MEQ/100ML SWI (KRUN) 10 MEQ in IV 1 EA IV SCH (03:46)
[2024-10-20 05:46] LABS: BASO # 0.0 10^3/uL (0.0-0.2); BASO % 0.4 % (0.0-1.0); EOS # 0.1 10^3/uL (0.0-0.5); EOS % 1.4 % (0.0-3.0); LYMPH # 1.0 10^3/uL (1.5-5.0); LYMPH % 11.4 % (24.0-44.0); MONO # 0.8 10^3/uL (0.0-0.8); MONO % 10.1 % (2.0-8.0); NEUTROPHILS # 6.3 10^3/uL (1.5-8.5); NEUTROPHILS % 76.2 % (36.0-66.0); PLATELET COUNT, AUTOMATED 244 10^3/uL (150-450)
[2024-10-20 06:16] LABS: CALCIUM LEVEL 8.0 MG/DL (8.3-10.6); CARBON DIOXIDE LEVEL 31.0 MMOL/L (20-31); CHLORIDE LEVEL 97.0 MMOL/L (98-107); CREATININE FOR GFR 1.28 MG/DL (0.70-1.30); GLOMERULAR FILTRATION RATE 54.9 (>35); POTASSIUM SERUM 2.5 MMOL/L (3.5-5.1); SODIUM LEVEL 139.0 MMOL/L (136-145)
[2024-10-20 07:30] VITALS: BP 143/63; TEMP 97.3; O2SAT 95
[2024-10-20] MEDS: MIRALAX *UNIT DOSE* 17 GM PACKET PO SCH (10:06)
[2024-10-20] MEDS: SERTRALINE HCL 50 MG TAB PO SCH (10:13)
[2024-10-20 11:16] LABS: MAGNESIUM LEVEL 1.9 MG/DL (1.8-2.4); POTASSIUM SERUM 2.9 MMOL/L (3.5-5.1)
[2024-10-20 16:56] VITALS: BP 125/60; TEMP 97.9; O2SAT 94
[2024-10-20] MEDS: RIVAROXABAN 20MG TAB PO SCH (17:41)
[2024-10-20 20:14] VITALS: BP 134/68; TEMP 97.9; O2SAT 94
[2024-10-21] MEDS ORDERED: OLANZapine INTRAMUSCULAR 10MG VIAL IM PRN (03:35)
[2024-10-21 05:15] VITALS: BP 170/79; TEMP 98.1; O2SAT 93
[2024-10-21 06:03] LABS: BASO # 0.0 10^3/uL (0.0-0.2); BASO % 0.6 % (0.0-1.0); EOS # 0.2 10^3/uL (0.0-0.5); EOS % 2.4 % (0.0-3.0); LYMPH # 1.2 10^3/uL (1.5-5.0); LYMPH % 17.1 % (24.0-44.0); MONO # 0.5 10^3/uL (0.0-0.8); MONO % 7.4 % (2.0-8.0); NEUTROPHILS # 4.8 10^3/uL (1.5-8.5); NEUTROPHILS % 71.6 % (36.0-66.0); PLATELET COUNT, AUTOMATED 281 10^3/uL (150-450)
[2024-10-21 06:28] LABS: CALCIUM LEVEL 8.7 MG/DL (8.3-10.6); CARBON DIOXIDE LEVEL 32.0 MMOL/L (20-31); CHLORIDE LEVEL 98.0 MMOL/L (98-107); CREATININE FOR GFR 1.09 MG/DL (0.70-1.30); GLOMERULAR FILTRATION RATE 66.5 (>35); POTASSIUM SERUM 3.1 MMOL/L (3.5-5.1); SODIUM LEVEL 140.0 MMOL/L (136-145)
[2024-10-21] MEDS: POTASSIUM CHLORIDE 10MEQ SR TABLET PO SCH (08:53)
[2024-10-21] MEDS: MORPHINE 2 MG/ML 1 ML VIAL IV PRN (08:55)
[2024-10-21] MEDS: NYSTATIN 100,000 UNITS/GM TOPICAL PWD 15 GM TOP SCH (08:56)
[2024-10-21] MEDS: FENTANYL REMOVAL DOCUMENTATION MISC XX SCH ×2 (09:00→14:15)
[2024-10-21] MEDS: DICLOFENAC EPOLAMINE 1.3% PATCH TOP SCH (09:00)
[2024-10-21] MEDS: POLYETHYLENE GLYCOL 238 GM BOTTLE PO ONE (10:38)
[2024-10-21 12:00] VITALS: BP 144/79; TEMP 97.7; O2SAT 94
[2024-10-21] MEDS ORDERED: POLYVINYL ALCOHOL OPHTH SOLN 15ML (LIQUITEARS) OU PRN (12:45)
[2024-10-21] MEDS: CEFPODOXIME PROXETIL 200 MG TABLET PO SCH (14:12)
[2024-10-21] MEDS: SENNOSIDES/DOCUSATE SODIUM 8.6 MG/50MG TAB PO SCH (21:04)
[2024-10-21] MEDS: OLANZapine ORAL DISINTEGRATING TAB 5MG PO SCH (21:04)
[2024-10-22] MEDS: MORPHINE 10 MG/0.5 ML ORAL CONCENTRATE SOLUTION U/D SL ONE (10:11)
[2024-10-22] MEDS: LORazepam 0.5 MG TAB PO ONE (10:15)
[2024-10-22] MEDS: MORPHINE 10 MG/0.5 ML ORAL CONCENTRATE SOLUTION U/D SL SCH (17:01)
[2024-10-22] MEDS: clonazePAM 0.5 MG TAB PO SCH (17:09)
[2024-10-24] MEDS: MORPHINE 10 MG/0.5 ML ORAL CONCENTRATE SOLUTION U/D SL PRN (20:17)
[2024-10-25] MEDS: LORazepam 1 MG TAB PO PRN (01:16)
[2024-10-27] MEDS: MORPHINE 10 MG/0.5 ML ORAL CONCENTRATE SOLUTION U/D SL SCH (13:29)
[2024-10-29 09:46] VITALS: BP 139/74
[2024-10-30] MEDS: HALOPERIDOL 2 MG TAB PO PRN (22:36)
[2024-10-31] MEDS: METAXALONE 800 MG TABLET PO PRN (03:07)
[2024-10-31] MEDS: HYOSCYAMINE SULFATE 0.125 MG SUBL TABLET SL PRN (21:32)
[2024-11-06] MEDS: VANICREAM MOISTURIZING SKIN CREAM 113GM TUBE TOP SCH (22:02)
[2024-11-07] MEDS: LIDOCAINE 2% 5 ML JELLY UROJET TOP PRN (19:28)
[2024-11-08] MEDS: ATROPINE SULFATE 1% OPHTH SOLN 2 ML BTL SL PRN (01:19)
[2024-11-08] MEDS: SCOPOLAMINE 1MG TRANSDERMAL PATCH TOP PRN (02:08)
[2024-11-08] MEDS: ACETAMINOPHEN *IV* 1,000 MG in IV 1 EA IV ONE (02:24)
[2024-11-08] MEDS ORDERED: ACETAMINOPHEN 650 MG SUPP PR PRN (03:15)
[2024-11-08] MEDS: SALIVA SUBSTITUTE BTL MT PRN (05:14)
== END 2024-11-08 11:29 | disposition expired | DRG 689 ==
LOC: M ED 11:08 → EDBD 11:08 → M ED INP 13:18 → M PCU 17:54 → M MSPAV 10-20 16:44
PROVIDERS: ADMIT General Practice; ATTEND Internal Medicine Nephrology
PROC: B246ZZZ Ultrasonography of Right and Left Heart (ICD-10-PCS; principal; 2024-10-20)
DX: N39.0 Urinary tract infection, site not specified (principal); G93.41 Metabolic encephalopathy; G92.8 Other toxic encephalopathy; I48.21 Permanent atrial fibrillation; I50.32 Chronic diastolic (congestive) heart failure; I13.0 Hypertensive heart and chronic kidney disease with heart failure and stage 1 through stage 4 chronic kidney disease, or unspecified chronic kidney disease; N17.9 Acute kidney failure, unspecified; I24.89 Other forms of acute ischemic heart disease; M62.82 Rhabdomyolysis; Z66 Do not resuscitate; R29.6 Repeated falls; N18.2 Chronic kidney disease, stage 2 (mild); I71.40 Abdominal aortic aneurysm, without rupture, unspecified; N40.0 Benign prostatic hyperplasia without lower urinary tract symptoms; R26.89 Other abnormalities of gait and mobility; M54.9 Dorsalgia, unspecified; G89.29 Other chronic pain; M17.0 Bilateral primary osteoarthritis of knee; F41.9 Anxiety disorder, unspecified; Z90.49 Acquired absence of other specified parts of digestive tract; I87.2 Venous insufficiency (chronic) (peripheral); E86.0 Dehydration; E87.6 Hypokalemia; Z79.899 Other long term (current) drug therapy; Z91.030 Bee allergy status; R05.9 Cough, unspecified; R57.1 Hypovolemic shock; F03.90 Unspecified dementia, unspecified severity, without behavioral disturbance, psychotic disturbance, mood disturbance, and anxiety; E87.5 Hyperkalemia; E11.22 Type 2 diabetes mellitus with diabetic chronic kidney disease; E11.51 Type 2 diabetes mellitus with diabetic peripheral angiopathy without gangrene